=== PATIENT | male | born 1945 | race Caucasian/White ===

== ENCOUNTER 2021-02-22 11:30 | Outpatient (CLI) | payer MEDICARE, SELFPAY | END 2021-02-22 11:31 | disposition home or self-care (01) | LOC: CHSLAB 11:37 | PROVIDERS: PCP Internal Medicine; Visit Provider Specialist | DX: L57.0 Actinic keratosis (principal) | CPT/HCPCS: 88305 ==

== ENCOUNTER 2022-09-12 08:26 | Outpatient (CLI) | payer MEDICARE, SELFPAY | END 2022-09-12 08:27 | disposition home or self-care (01) | LOC: CHSLAB 08:32 | PROVIDERS: PCP Specialist; Visit Provider Specialist | DX: L57.0 Actinic keratosis (principal) | CPT/HCPCS: 88305 ==

== ENCOUNTER 2025-02-05 12:05 | Outpatient (CLI) | payer MEDICARE, SELFPAY ==
--- OUTSIDE RECORDS SUMMARY | 2025-02-05 13:46 | XMS_ITS | Clinical Summary ---
Author Organization [facility] Address [address] [address] Phone Care Team Providers Care Applications Engineer Name Role Phone Miguel Clark MD Primary Care Provider Unavaila ble Allergies No known active allergies Medications clopidogrel (PLAVIX) 75 MG Tablet 8 Active Fenofibrate Micronized 134 MG Capsule TK 1 C PO D 3 8 Active rosuvastatin (CRESTOR) 20 MG Tablet TK 1 T PO ONCE D 1 8 Active valsartan-hydroCH LOROthiazide (DIOVAN-HCT) 320-25 MG Tablet 9 Active timolol (TIMOPTIC) 0.5 % Solution INT 1 GTT IN OU BID 1 8 Active glipiZIDE (GLUCOTROL) 5 MG Tablet Take by mouth. Activ e terazosin (HYTRIN) 10 MG Capsule Take by mouth. Activ e Probiotic Product (PROBIOTIC & ACIDOPHILUS EX ST) CapsuleIndication s:Chronic maxillary sinusitis Take 1 daily by mouth while on antibiotics and for at least 5 days after completing the antibiotic course. 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 Chronic maxillary sinusitis 12/10/2018 PNAR (perennial non-allergic rhinitis) 9 DNS (deviated nasal septum) 12/10/2018 Resolved Problems Problem Noted Date Diagnosed Date Resolved Date Rhinitis medicamentosa 12/10/201801/17 Social History Tobacco Use Types Packs/Day Years Used Date Smoking Tobacco: Never Smokeless Tobacco: Never Alcohol Use Standard Drinks/Week Comments No 0 (1 standard drink = 0.6 oz pur e alcohol) Sex and Gender Information Value Date Recorded Sex Assigned at Not on file Legal Sex Male 7:25 PM CDT Gender Identity Not on file Sexual Orientation Not on file 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 End 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 Not on file Not on susan e Not on file Last Filed Vital Signs Vital Sign Reading Time Taken Comments Blood Pressure 126/88 12/09/2019 8:44 AM [employer]OVE RE[employer]ISH[employer] Pulse 64 12/09/2019 8:44 AM [employer]OVE REFINISHER Temperature 36.9 C (98.4 F) 12/09/2019 8:44 AM STOVE REFINISHER Respiratory Rate 14 12/09/2019 8:44 AM STOVE REFINISHER Oxygen Saturation 98% 12/09/2019 8:44 AM STOVE REFINISHER Inhaled Oxygen Concentration - - Weight 97.5 kg (215 lb) 12/09/2019 8:44 AM STOVE REFINISHER Height 175.3 cm (5' 9 ) 12/09/2019 8:44 AM STOVE REFINISHER Body Mass Index 31.75 12/09/2019 8:44 AM STOVE REFINISHER Plan of Treatment Health Maintenance Due Date Last Done Comments Hepatitis C Virus (HCV) Screening 1945 TdaP Immunization 1945 Pneumococcal Immunization (50+ years) (1 of 1 - PCV) 1994 Zoster Immunization (1 of 2) 1994 Respiratory Syncytial Virus (RSV) Immunization (Adult) (1 - 1-dose 75+ series) 2019 Influenza Immunization (#1) 2024 08/06/2019, 1 01/01/2017 SARS-COV-2 Immunization (2023- season) 2024 09/26/2022, 08/25/2021, 02/04/2021, Additional history exists Hepatitis B Immunization Aged Out No longer eligible based on patient's age to complete this topic Meningococcal Immunization (ACWY) Aged Out No longer eligible based on patient's age to complete this topic Rotavirus Immunization Aged Out No lo nger eligible based on patient's age to complete this topic Care Teams Applications Engineer Relationship Specialty Start Date End Date Miguel Clark MD [address] [address] [place] [address] PCP - General Internal Medicine 12/10/18
--- OUTSIDE RECORDS SUMMARY | 2025-02-05 13:46 | XMS_ITS | Encounter Summary ---
Author Organization [facility] Address [address] [place] [address] Phone Care Team Providers Care Soil Conservation Technician Name Role Phone Miguel Clark MD Primary Care Provi severo Javier Manuel MD Unavailable [phone] [place] Primary Care Provider Irineo Terrazas MD Primary Care Provider [phone] Jeff Candelario DPM Unavailable [phone] Caio Zaragoza MD Unavailable [phone] Cinthia Rocha RN Unavailable [phone] Christina Tubbs CDE Unavailable [phone] Encounter Details Date Type Department Care Team (Late st Contact Info) Description 04/23/2018 Orders Only [facility] ProviderYoli MD [address] [place] [address] Social History Tobacco Use Types Packs/Day Years Used Date Smoking Tobacco: Never Smokeless Tobacco: Never Alcohol Use Standard Drinks/Week Comments No 0 (1 standard drink = 0.6 oz pur e alcohol) Sex and Gender Information Value Date Recorded Sex Assigned at Not on file Legal Sex Male 11:52 PM [employer] Gender Identity Not on file Sexual Orientation Not on file documented as of this encounter Plan of Treatment Not on file documented as of this encounter Procedures Procedure Name Priority Date/Time Associated Diagnosis Comments DISCHARGE LABORATORY CUMULATIVE REPORT 04/23/2018 12:00 AM CDT documented in this encounter Results * DISCHARGE LABORATORY CUMULATIVE REPORT (04/23/2018 12:00 AM CDT) Narrative 04/23/2018 12:00 AM CDT Ordered by an unspecified provider. us Historical Provider LAB BLOOD ORDERABLES Steffany l Result documented in this encounter Visit Diagnoses Not on filedocumented in this encounter Additional Health Concerns Infection Onset Date Last Indicated Resolved Time C. difficile suspected 04/18/2024 04/18/202404/20 1:50 PM CDT documented as of this encounter Care Teams Soil Conservation Technician Relationship Specialty Start Date End Date Miguel Clark MD PCP - General 02/23/17 07/26/22 Chino [place] PA [address] [place] [address] [place] [address] PCP - General Internal Medicine 07/27/22 10/05/22 Irineo Terrazas MD [address] [place] [address] PCP - General Family Medicine 10/06/22 Javier Manuel MD Consulting Physician Cardiovascular Disease 06/25/18 Jeff Candelario, DPM [address] [place] [address] Consulting Physician Orthopedic Surgery 12/22/22 Caio Zaragoza MD [address] [place] [address] [address] [place] [address] Consulting Physician Nephrology 05/13/24 Cinthia Rocha, RN [address] [place] [address] [address] [place] [address] Mason Foreman/Superintendant 05/19/24 Christina Tubbs CDE [address] [facility] [address] [facility] [address] [place] [address] Wedding Photographer 05/19/24 05/25/24 documented as of this encounter
--- OUTSIDE RECORDS SUMMARY | 2025-02-05 13:46 | XMS_ITS | Referral Summary ---
Author Organization [facility] Address [address] [place] [address] Care Team Providers Care Youth Care Professional Name Role Phone Javier Manuel MD Unavailable [phone] Irineo Terrazas MD Primary Care Provider Andrea Candelario DPM Unavailable [phone] Caio Zaragoza MD Unavailable [phone] Cinthia Rocha RN Unavailable [phone] Encounters Date Type Department Care Team Description 01/26/2025 Results Follow-Up [facility] [address] [phone] Irineo Terrazas MD 01/26/2025 Orders Only [facility] [address] [phone] Irineo Terrazas MD 01/26/2025 9:58 AM INDUSTRIAL RELATIONS WORKER - 01/26/2025 11:59 PM INDUSTRIAL RELATIONS WORKER Hospital Encounter [address] [address] Discharge Disposition: Discharge to home or self care 01/26/2025 9:30 AM INDUSTRIAL RELATIONS WORKER Office Visit [facility] [address] [phone] Irineo Terrazas MD Dysuria (Primary Dx); Constipation, unspecified constipation type; BMI 31.0-31.9,adult; Obesity (BMI 30.0-34.9) 01/22/2025 9:00 AM INDUSTRIAL RELATIONS WORKER Lab [facility] [address] [place] [address] 01/20/2025 9:45 AM INDUSTRIAL RELATIONS WORKER Office Visit [facility] at [address] [place] [phone] Javier Manuel MD Bilateral carotid artery stenosis (Primary Dx); Chronic systolic congestive heart failure (HCC); Elevated LDL cholesterol level; 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; Valvular heart disease; Paroxysmal atrial fibrillation (HCC) 01/08/2025 [facility] IP Outreach [facility] [address] [place] [id number] Tania Chun MA 01/07/2025 9:45 AM INDUSTRIAL RELATIONS WORKER Lab [facility] [address] [place] [address] 01/01/2025 Orders Only [facility] [address] [phone] Irineo Terrazas MD 01/01/2025 Telephone [facility] [address] [address] Irineo Terrazas MD Test Results 12/26/2024 4:37 PM INDUSTRIAL RELATIONS WORKER - 12/26/2024 11:59 PM INDUSTRIAL RELATIONS WORKER Hospital Encounter [address] [address] Dysuria Discharge Disposition: Discharge to home or self care 12/26/2024 3:30 PM INDUSTRIAL RELATIONS WORKER Office Visit [facility] [address] [phone] Irineo Terarzas MD Dysuria (Primary Dx); Diabetes mellitus due to underlying condition with stage 3a chronic kidney disease, with long-term current use of insulin (HCC); BPH associated with nocturia; Chronic systolic congestive heart failure (HCC); 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; CKD stage 3a, GFR 45-59 ml/min (HCC); Chronic atrial fibrillation (HCC); BMI 31.0-31.9,adult; Obesity (BMI 30.0-34.9) 12/19/2024 9:40 AM INDUSTRIAL RELATIONS WORKER Lab [facility] [address] [place] [address] Controlled type 2 diabetes mellitus with complication, without long-term current use of insulin (HCC) 12/18/2024 Orders Only [facility] [address] [phone] Irineo Terrazas MD Controlled type 2 diabetes mellitus with complication, without long-term current use of insulin (HCC) (Primary Dx) 12/17/2024 Telephone [facility] [address] [phone] Irineo Terrazas MD Case Management- Primary Care 12/04/2024 Telephone [facility] [address] [address] Irineo Terrazas MD Case Management- Primary Care 11/18/2024 Telephone [facility] Accountable Care Organization [address] [place], [place] [id number] Sofya Ruiz MA Unsuccessful Phone Call 3 (Med adherence) 11/17/2024 Orders Only [facility] [address] [phone] Irineo Terrazas MD 11/14/2024 Telephone [facility] [address] [phone] Irineo Terrazas MD Medical Question/Miscellaneo us from Last 3 Months Allergies No known active allergies Medications lancets misc test twice daily 180 each 3 12/18/19 17 Active timoloL maleate 0.5 % drops, once daily INT 1 GTT IN OU QD 10/19/20 20 Active gabapentin (NEURONTIN) 100 mg capsule TAKE 1 CAPSULE(100 MG) BY MOUTH THREE TIMES DAILY 90 capsule 07/26/20 22 Active amiodarone (PACERONE) 200 mg tablet Take 1 tablet (200 mg total) by mouth daily 90 tablet 3 04/15/20 24 025 Active aspirin 81 mg chewable tablet Take 1 tablet (81 mg total) by mouth daily Active glipiZIDE (GLUCOTROL) 5 mg tabletIndicati ons:type 2 diabetes mellitus Take 1 tablet (5 mg total) by mouth 2 (two) times a day before breakfast and lunch Active isosorbide dinitrate (ISORDIL) 10 mg tablet Take 1 tablet (10 mg total) by mouth 2 (two) times a day 180 tablet 3 05/13/20 24 Active telmisartan-hy drochlorothiaz id (MICARDIS HCT) 80-25 mg per tablet Take 1 tablet by mouth daily 06/06/20 24 Active lansoprazole (PREVACID) 30 mg capsule Take 1 capsule (30 mg total) by mouth daily Active OneTouch Verio test strips strip USE TO TEST TWICE DAILY( MORNING AND NIGHT) DIRECTED 100 strip 06/30/20 24 Active apixaban (Eliquis) 5 mg tablet TAKE 1 TABLET BY MOUTH TWICE DAILY 180 tablet 3 10/06/20 24 Active FeroSuL 325 mg (65 mg iron) tablet TAKE 1 TABLET BY MOUTH EVERY DAY WITH BREAKFAST 90 tablet 1 10/06/20 24 Active rosuvastatin (CRESTOR) 20 mg tablet TAKE 1 TABLET BY MOUTH DAILY 100 tablet 1 10/06/20 24 Active metoprolol XL (TOPROL-XL) 50 mg extended release tablet Take 0.5 tablets (25 mg total) by mouth daily 45 tablet 3 10/06/20 24 Active Myrbetriq 50 mg tablet extended release 24 hr Take 1 tablet (50 mg total) by mouth daily 09/02/20 24 Active albuterol HFA (PROVENTIL HFA,VENTOLIN HFA,PROAIR HFA) 90 mcg/actuation inhaler Inhale 2 puffs every 6 (six) hours as needed for wheezing 3 each 4 10/20/20 24 025 Active blood-glucose sensor device 1 each every 14 (fourteen) days 5 each 1 10/20/20 24 Active flash glucose scanning reader ([employer] [place] [address] [place]) [facility] Use as directed with sensor. Dx: Type 2 Dm with CKD stage 3b 1 each 10/20/20 24 Active Additional Information Patient not taking.Reported on 01/26/2025 terazosin (HYTRIN) 10 mg capsule TAKE 1 CAPSULE(10 MG) BY MOUTH EVERY NIGHT 90 capsule 11/12/20 24 Active fenofibrate micronized (LOFIBRA) 134 mg capsule TAKE 1 CAPSULE(134 MG) BY MOUTH DAILY 100 capsule 1 11/21/20 24 Active furosemide (LASIX) 20 mg tablet TAKE 1 TABLET(20 MG) BY MOUTH DAILY 90 tablet 1 01/05/20 25 Active hydrALAZINE (APRESOLINE) 50 mg tabletIndicati ons:hypertensi on Take 1.5 tablets (75 mg total) by mouth 3 (three) times a day 270 tablet 3 01/20/20 25 026 Active cephalexin (KEFLEX) 500 mg capsule Take 1 capsule (500 mg total) by mouth 2 (two) times a day for 10 days 20 capsule 01/27/20 25 025 Active hydrALAZINE (APRESOLINE) 50 mg tabletIndicati ons:hypertensi on Take 1 tablet (50 mg total) by mouth 3 (three) times a day 270 tablet 3 07/10/20 24 025 Discontinued cephalexin (KEFLEX) 500 mg capsule Take 1 capsule (500 mg total) by mouth 2 (two) times a day for 7 days 14 capsule 01/01/20 25 025 Active Problems Problem Noted Date Diagnosed Date Constipation 01/26/2025 Assessment & Plan (01/26/2025 9:56 AM INDUSTRIAL RELATIONS WORKER): Change in BM and will montior ersponse. Push fluids, update C=-scope and will montior serponse. CKD stage 3a, GFR 45-59 ml/min 01/04/2025 Assessment & Plan (01/04/2025 3:48 PM INDUSTRIAL RELATIONS WORKER): Reviewed hydration and avoidance of nephrotoxic agents. No NSAIDS. Dysuria 01/04/2025 Assessment & Plan (01/26/2025 9:55 AM INDUSTRIAL RELATIONS WORKER): Continue f/u with aggressive hydration and will montior response. Assessment & Plan (01/04/2025 3:48 PM INDUSTRIAL RELATIONS WORKER): Check urinalysis and will follow response. NO gross hematuria. Flu vaccine need 10/20/2024 Assessment & Plan (10/20/2024 10:17 AM INDUSTRIAL RELATIONS WORKER): Updated Controlled type 2 diabetes ximena ruiz with stage 3 chronic kidney disease, with long-term current use of insulin 10/20/2024 Assessment & Plan (10/20/2024 10:17 AM INDUSTRIAL RELATIONS WORKER): Continue aggressive blood pressure and glycemic control. Benign prostatic hyperplasia with urinary freque ncy 10/20/2024 Assessment & Plan (10/20/2024 10:18 AM INDUSTRIAL RELATIONS WORKER): COntinue on terazosin and will follow response. Secondary hyperparathyroidism of renal origin Assessment & Plan (10/20/2024 10:18 AM INDUSTRIAL RELATIONS WORKER): Continue f/u with nephrology. BMI 31.0-31.9,adult 07/25/2024 Assessment & Plan (07/25/2024 9:31 AM CDT): [place] 150min/week aerobic exercise. Obesity (BMI 30.0-34.9) 07/25/2024 Acute conjunctivitis of left eye 07/25/2024 Assessment & Plan (07/25/2024 9:32 AM CDT): Erythemoycin ointmnet. No loss of visual acuity. Sleep disturbance 05/15/2024 Assessment & Plan (05/15/2024 11:26 AM CDT): PSG ordered. Will plan accordingly once results are received. Encounter for Medicare annual wellness exam 04/27 Assessment & Plan (05/15/2024 11:26 AM CDT): Visit preventive in nature. We reviewed medications, chronic conditions, risk factors, lifestyle recommendations. Reviewed immunization recommendations. Follow-up in 2 months for chronic conditions and 1 year for annual wellness. Hyperkalemia 04/18/2024 Hyperkalemia 04/18/2024 REBECCA (acute kidney injury) 04/18/2024 Hyponatremia 04/18/2024 Hypotension 04/18/2024 Coronary artery disease of n ative artery of sitka heart with stable angina pectoris 04/16/2024 Assessment & Plan (10/20/2024 10:16 AM INDUSTRIAL RELATIONS WORKER): Secondary prevention and will montior erpsonse. COntinues on asa and rsouvastatin. No new anginal s/s. Assessment & Plan (07/25/2024 9:30 AM CDT): Secondasry prevneiton. Continues f/u with Cardiology. No active anginal s/s. Montior response. Diabetes mellitus due to und erlying condition with stage 3a chronic kidney disease, with long-term current use of insulin 04/16/2024 Assessment & Plan (01/04/2025 3:46 PM INDUSTRIAL RELATIONS WORKER): Reviewed glycmeic control targets. Reviewed hypoglycemic risks. Reviweed side effects to glp-1 agonsit therapy and mechdanism of action. Chronic systolic congestive heart failure 2022 Overview (01/20/2025): Mild LV systolic dysfunction on echo 23 July 2015. Severe LV systolic dysfunction on echo 18 June 2023. Mild LV systolic dysfunction on echo 29 November 2023. Mild LV systolic dysfunction on echo 07 July 2024. LVEF 45-50%. On Toprol-XL 50 mg daily, hydralazine 50 mg t.i.d., Isordil 10 b.i.d.,telmisartan/hydrochlorothiazide 80/25, Lasix 20 mg daily. No Aldactone because of hyperkalemia and renal insufficiency in the past. Coreg made him sleepy. Assessment & Plan (01/20/2025 10:30 AM INDUSTRIAL RELATIONS WORKER): We discussed echo result from 6 months ago showing mild LV dysfunction. Since his blood pressure is high anyway, I will increase the hydralazine to 75 mg PO TID. Another echocardiogram will be done prior to next office visit. Assessment & Plan (01/04/2025 3:47 PM INDUSTRIAL RELATIONS WORKER): Continues f/u with cardiology and will monitor response. Reivweed no fluid overload. No EPSTEIN, no syncope/near-syncope changes. Assessment & Plan (07/10/2024 3:41 PM CDT): Discussed mild LV dysfunction noted on echo a few days ago. He is not symptomatic walking slowly with a cane. I will however increase the hydralazine to 50 mg p.o. t.i.d. as his blood pressures have been high. He showed me his blood pressure record showing systolic in the 150-160 range pretty much all the time. Assessment & Plan (05/15/2024 11:26 AM CDT): Clinically stable. Start Isordil today. Labs today. Highly encouraged compression stockings. Highly encouraged monitoring sodium intake. Handouts provided. Red flags reviewed. Will monitor response. Assessment & Plan (05/13/2024 9:41 AM CDT): Complaining of sleepiness and he does snore. Thus, I wonder whether he could benefit from a sleep study. I advised him to check with Dr. Terrazas. We discussed that his LV function has actually improved a bit since last year. I will change the Imdur to Isordil 10 mg p.o. b.i.d.. I will increase the hydralazine to 25 mg p.o. t.i.d.. Cannot add ARB or RUEL inhibitor or Entresto or Aldactone because of renal insufficiency and hyperkalemia. Assessment & Plan (11/01/2023 1:01 PM INDUSTRIAL RELATIONS WORKER): We discussed latest echo findings from 5 months ago. He is doing quite well since cardioversion back to sinus rhythm. He is able to walk 3,500 steps a day without chest pain or shortness of breath. We discussed his multiple medications for weak heart. He is willing to try increasing the Toprol-XL to 50 mg per day. He will keep an eye on his pulse rate with his fitness watch and let me know if it is less than 50 beats per minute consistently. He wants to get off his wearable defibrillator, so we should get an echocardiogram now. Assessment & Plan (08/07/2023 9:54 AM CDT): Since he has some troubles with Coreg, I will try Toprol-XL 25 mg p.o. q.d.. I will also start empagliflozin 10 mg p.o. q.d.. We discussed primary prevention with a wearable defibrillator and he is agreeable. He will stay on telmisartan/hydrochlorothiazide and Aldactone. We checked his renal function a month ago and it was back to normal. Serum creatinine was slightly high 4 months ago. Elevated LDL cholesterol level 04/17/2023 Overview (01/20/2025): LDL of 37 mg/dL on 23 August 2020. LDL of 38 mg/dL on 12 January 2021. LDL of 30 mg/dL on 27 Mar 2023. LDL of 42 mg/dL on 17 September 2023. LDL of 44 mg/dL on 10 Apr 2024. LDL of 31 mg/dL on 20 October 2024. LDL of 44 mg/dL on 19 December 2024. On Crestor 20 mg p.o. q.d.. Assessment & Plan (01/20/2025 10:29 AM INDUSTRIAL RELATIONS WORKER): Discussed LDL cholesterol goal less than 70 mg/dL. He has been at goal since 5 years ago. I will not make any changes here. Assessment & Plan (07/10/2024 3:39 PM CDT): We discussed LDL cholesterol goal of less than 70 mg/dL. He has been at goal since at least 2019. No change in low dose Crestor. Assessment & Plan (11/01/2023 1:02 PM INDUSTRIAL RELATIONS WORKER): We discussed LDL cholesterol goal of less than 70 mg/dL. He has been at goal for the past 3 years. No change in Crestor dosing at this time. Brian crowe 12/22/2022 Controlled type 2 diabetes m ellitus with diabetic polyneuropathy, without long-term current use of insulin 03/30/2022 Assessment & Plan (03/30/2022 11:23 AM CDT): Yan helps and Low dose all needs Watch feet for sores Iron deficiency anemia due to chronic blood loss 03/30/2022 Assessment & Plan (03/30/2022 11:26 AM CDT): Mildly low irons and nl feritin trial Single iron a day neg colon last yr Essential hypertension 11/28/2021 Assessment & Plan (11/28/2021 10:41 AM INDUSTRIAL RELATIONS WORKER): htn good and keep meds same Hematoma of left thigh 11/10/2021 Assessment & Plan (11/10/2021 1:35 PM INDUSTRIAL RELATIONS WORKER): possibaly caused sund but aware of yesteeday with knee sore and today sawswelling area if bleeding into superficial tissue and stopped will se it foolw gracity and go down and post as it evolves. No other bleeding would not hlold the sa or eliquis.remain cativyt to helpmobilitze it expect local swelling and discomfort as blood ariadne feel like bruised it, blood cnt yeeterday ws not different from past so not exceessive bleeding Abnormal blood creatinine level 06/09/2021 Assessment & Plan (11/28/2021 10:33 AM INDUSTRIAL RELATIONS WORKER): Cr cl 89 and nl. E gfr 70 and Actually b e t ter and nl Assessment & Plan (06/09/2021 8:41 AM CDT): egfr 61 and passt crcl good but creat up some and recheck Abnormal CT scan, colon 05/16/2021 Overview (05/16/2021): Added automatically from request for surgery [id number] History of colonic polyps 05/16/2021 Overview (05/16/2021): Added automatically from request for surgery [id number] Class 1 obesity with body ma ss index (BMI) of 30.0 to 30.9 in adult 02/03/2021 Assessment & Plan (03/30/2022 11:27 AM CDT): wtch wt Assessment & Plan (03/10/2021 9:55 AM CDT): Work to lisa a few. 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 Assessment & Plan (09/01/2020 9:57 AM CDT): l perirectal 43 cm abscess going down given proximity concern for coming from rectum or not Cont pobiotic and cipro 500 bid for 10 days and ask back in mid next week to look at since ge tting better will no refer but nof nont stay better and or now going away then surg consoult to look at Potential higher levels of zanaflex but only on 2 mg once a day. Will cont with cipro. Discussed Urinary frequency 04/26/2020 Assessment & Plan (04/26/2020 4:09 PM CDT): Urine dip unremarkable detailed above. Prior urine testing evaluated which was negative for any pyuria and clinical exam was benign for prostatitis. Given little to no improvement, progression of sx recommending checking PSA, sending off urinalysis for verification of hematuria clearance, and consultation to urologist. Recommended treatment for suspected overactive bladder in the interim with oxybutynin. S/Es discussed. Further follow-up in 2 weeks if unable to get in with urologist in the interim regarding results of labs. Acute cystitis with hematuria 04/13/2020 Assessment & Plan (03/10/2021 9:52 AM CDT): Yr ago some blood cells and neg culture and then neg No antibiotcs for a yr and Given abn urine and aaucte strt and nitrates feels uti no prior issue to suggest urine retentino or not emptying. But consider bladder scan in furt re visits. Cover with antibioitcs Not had antibiotrcs for a yr. strt macrobid bid and get urine micro and culuture chem screen + for bld and nitrates and ifmicro shows t hen will need repeat to confirm clearance. Stay on probioticxs now. fecheck urine 2 wks to confirm blood gone, stone at lower part of ureter as gets to bldder can cause similar complalnts and maria alejandra for if neg culture Assessment & Plan (04/13/2020 9:16 AM CDT): empicic treatment with macrobid and check urine sscreen + blood and recheck after rx to prove gone Localized edema 04/13/2020 Assessment & Plan (04/13/2020 9:17 AM CDT): Probably from the amlodipine but will check tsh and bnp if not done recently jvd now no pnd or orthopnea but sleeps o pillw for gerd Valvular heart disease 03/29/2020 Overview (01/20/2025): Mild AI on echo 23 July 2015. Normal LVEF of 53%. Mild MR/ TR on echo 18 June 2023. Severe LV dysfunction. No mention of valvular heart disease on echo 29 November 2023. Mild MR/TR/AI on echo 07 July 2024. LVEF of 40-45%. Assessment & Plan (04/17/2023 10:57 AM CDT): Because he is having some shortness of breath with activities, an echocardiogram would be useful. We discussed last findings from 8 years ago showing good LV function. Bilateral carotid artery stenosis 03/29/2020 Assessment & Plan (11/28/2021 10:36 AM INDUSTRIAL RELATIONS WORKER): Last checked in dec last yr and mild. Risk tight and ldl low at 28 so feel risk of progressio nil recheck in a yr Assessment & Plan (03/29/2021 10:27 AM CDT): Patient remains asymptomatic with his known carotid disease. He will continue with aggressive secondary risk factor modification. Recent carotid ultrasound revealed mild bilateral disease. Assessment & Plan (02/03/2021 11:41 AM INDUSTRIAL RELATIONS WORKER): Mild disease on scan this Wk and cont meds to limit risk and recheck 1-12 yrs Assessment & Plan (09/01/2020 10:01 AM CDT): Check every 1-2 yrs Hypercalcemia 12/08/2019 Assessment & Plan (03/30/2022 11:22 AM CDT): calcelmia up more then down andnot on calc. Check pth on return Assessment & Plan (09/01/2020 9:58 AM CDT): trce high at 10.4 and no chaes and check pth I future Assessment & Plan (12/08/2019 8:38 AM INDUSTRIAL RELATIONS WORKER): Calcium up to 10.9 and take calcium intermittently and ask to stop and stay off Pain in left lower leg 12/08/2019 Assessment & Plan (12/08/2019 8:40 AM INDUSTRIAL RELATIONS WORKER): Issue at night and see if niight time extended tylenol 625 and use 2 will help Controlled type 2 diabetes ximena ruiz with diabetic peripheral angiopathy without gangrene, without long-term current use of insulin 03/06/2019 Assessment & Plan (10/20/2024 10:16 AM INDUSTRIAL RELATIONS WORKER): Rviweed gabapentin for neuropathy and montior for secondary prevnetion and will continue to follow response. Assessment & Plan (03/30/2022 11:29 AM CDT): Watch fe et for sores that won't heal Assessment & Plan (02/03/2021 11:46 AM INDUSTRIAL RELATIONS WORKER): No claudicaton and risk with ldl and bp great and sugar as tight aswant At 7.0 watch for issue of tight sugar controll Watch feeet for sores. Assessment & Plan (09/01/2020 10:01 AM CDT): Tight risk contorll and no chags and watch feeet Assessment & Plan (12/08/2019 8:36 AM INDUSTRIAL RELATIONS WORKER): No waling lilmits from Arterial issue an duses suport from past trauma to l leg Assessment & Plan (03/06/2019 9:30 AM CDT): See's md in [facility] and will ask for info when next ween to add to file. Doing well now Thrombocytopenia 03/06/2019 Assessment & Plan (03/30/2022 11:20 AM CDT): Plat stable at 114 and referral if dorps to much less then 100 Assessment & Plan (11/28/2021 10:40 AM INDUSTRIAL RELATIONS WORKER): plt 127 and stable no drift Assessment & Plan (06/09/2021 8:37 AM CDT): Plat stable ovfer time with 3 yrs ago 124 and this time 1217 with mild anemia monitor and recheck iron referal if drops Assessment & Plan (02/03/2021 11:51 AM INDUSTRIAL RELATIONS WORKER): No bruising .bleeding and check cbc on return to [facility] Plat. Assessment & Plan (10/13/2020 11:07 AM INDUSTRIAL RELATIONS WORKER): Cbc on oreturn to [facility] Assessment & Plan (09/01/2020 10:03 AM CDT): Stable and recheck Assessment & Plan (12/08/2019 8:39 AM INDUSTRIAL RELATIONS WORKER): Mildly low and moncitor Assessment & Plan (03/06/2019 9:34 AM CDT): Check cbc on return Paroxysmal atrial fibrillation 12/12/2018 Overview (07/10/2024): On Eliquis 5 mg p.o. b.i.d.. and amiodarone 200 mg daily. Successful cardioversion to sinus rhythm on 19 September 2023 (RL). Assessment & Plan (01/20/2025 10:28 AM INDUSTRIAL RELATIONS WORKER): Patient denies any palpitations, dizziness or syncope. Heart rhythm seems regular on my exam today. He has no significant bleeding issues with Eliquis, so I will not make any changes here. Assessment & Plan (01/04/2025 3:47 PM INDUSTRIAL RELATIONS WORKER): DOAC and rate control. Assessment & Plan (10/20/2024 10:16 AM INDUSTRIAL RELATIONS WORKER): Continues f/u with cardiology. No palpitations Continues on DOAC and metoprolol XL . Assessment & Plan (07/25/2024 9:31 AM CDT): Continue on DOAC and rate control. MOntior response. Assessment & Plan (07/10/2024 3:39 PM CDT): Patient denies any palpitations, dizziness or syncope. Exam in the office today revealed a very irregular rhythm. No significant bleeding issues with Eliquis. He does have a few bruises on both forearms. We should continue on same dose Eliquis. Assessment & Plan (11/01/2023 1:01 PM INDUSTRIAL RELATIONS WORKER): He says he feels much better since atrial fibrillation has been converted back to sinus rhythm in August 2023. Appears to be in sinus rhythm at this time. No change in medical regimen here. No bleeding issues with Eliquis. Assessment & Plan (08/07/2023 9:52 AM CDT): Patient is still in atrial fibrillation on my exam today. We discussed cardioverting to sinus rhythm to help the weak heart. Patient is agreeable. Continue on Eliquis and he has no bleeding issues. Assessment & Plan (04/17/2023 10:56 AM CDT): Seems to be in atrial fibrillation on my exam today. Patient does not feel any palpitations. He has no dizziness or syncope. Just has a few bruises on the upper extremities but no GI bleeding or persistent nosebleeds. Continue same dose of Eliquis. Assessment & Plan (11/28/2021 10:36 AM INDUSTRIAL RELATIONS WORKER): On anticoag Assessment & Plan (03/29/2021 10:27 AM CDT): Patient's AF rates remain adequately controlled. I see no need for alteration to his medical regimen. Assessment & Plan (02/03/2021 11:42 AM INDUSTRIAL RELATIONS WORKER): Rate controlled and anticoag for persistent/perminent a fib Assessment & Plan (09/01/2020 10:01 AM CDT): Ta=rate contorll and on meds Assessment & Plan (03/06/2019 9:29 AM CDT): On anticoag and rate control Assessment & Plan (12/12/2018 9:57 AM INDUSTRIAL RELATIONS WORKER): New onset a fib. No eje fx as of summer with diffuse cad. With cath. Start eliquis 5mg bid. Amiodarone 200 bid. Back in office jonatan week with ekg. Ask card to see before january o.v. Setup. Recurrent sinusitis 10/28/2018 Assessment & Plan (10/28/2018 10:10 AM INDUSTRIAL RELATIONS WORKER): Continue current allergic rhinitis medication as described above, corticosteroid burst to assist with sinus congestion, encourage patient to complete a sinus CT before moving forward with 30 day course of Augmentin. Touch base in office in 2 weeks in the interim regarding CT results Allergic rhinitis 09/04/2018 Assessment & Plan (10/28/2018 10:10 AM INDUSTRIAL RELATIONS WORKER): Continue current antihistamine, flonase, and nasal rinses tolerated. I also encouraged him to use humidifier vaporizer at night as well Assessment & Plan (09/04/2018 8:48 AM CDT): Recommended Flonase nasal spray [id number], antihistamines if there is no improvement is rhinitis symptoms in the next 3-5 days after initiating Flonase management. Close follow-up outpatient with any worsening little improvement symptoms. He was assure that this does not appear to be infection at this time education was provided regarding proper allergy control and home modifications as well Age-related cataract of both eyes 09/04/2018 Assessment & Plan (09/04/2018 8:49 AM CDT): Patient wishes to proceed forward with cataract surgery, her Ophthalmology recommendation, which he is cleared for at this time. Type 2 diabetes mellitus with hyperlipidemia 03/2018 Overview (07/31/2018): On 20 crestor and ldl drooped to 58 and great and stay here Assessment & Plan (10/20/2024 10:17 AM INDUSTRIAL RELATIONS WORKER): COntinues on rosuvastatin 20mg. No new mylagias. Assessment & Plan (07/25/2024 9:31 AM CDT): Contineu on rosuvastatin and will follow response. Assessment & Plan (05/15/2024 11:25 AM CDT): Decrease glipizide to 2.5 mg twice daily and monitor blood glucose at home. Call in 2 weeks with readings. Assessment & Plan (03/30/2022 11:19 AM CDT): ldl 60 great and keep hereYour cholesterol in the form of ldl (bad) cholesterol,hdl(good) cholesterol and triglycerides are monitored. The triglycerides respond to reduction/controll of your simple carbs/sugars In such items as sugared soda/sweet tea along with fruit juices(containing natural sugar) even if no added sugar is added. LDL cholesterol is reduced with reducing daily intake of fats and carmen. saturated fats. The monosaturated fats like olive oil are not harmful except in the calories they contained. Whole milk cheese needs to be remembered along with whole milk products And limited. Assessment & Plan (11/28/2021 10:41 AM INDUSTRIAL RELATIONS WORKER): ldl at 28 and leave here With tight risk contorll No added diet Assessment & Plan (02/03/2021 11:50 AM INDUSTRIAL RELATIONS WORKER): ldl on med tight at 38 would not push any more and mild trig leave alone but diet if ableYour cholesterol in the form of ldl (bad) cholesterol,hdl(good) cholesterol and triglycerides are monitored. The triglycerides respond to reduction/controll of your simple carbs/sugars In such items as sugared soda/sweet tea along with fruit juices(containing natural sugar) even if no added sugar is added. LDL cholesterol is reduced with reducing daily intake of fats and carmen. saturated fats. The monosaturated fats like olive oil are not harmful except in the calories they contained. Whole milk cheese needs to be remembered along with whole milk products And limited. Assessment & Plan (10/13/2020 11:07 AM INDUSTRIAL RELATIONS WORKER): Check and con tmeds and upfull liipids on returnYour cholesterol in the form of ldl (bad) cholesterol,hdl(good) cholesterol and triglycerides are monitored. The triglycerides respond to reduction/controll of your simple carbs/sugars In such items as sugared soda/sweet tea along with fruit juices(containing natural sugar) even if no added sugar is added. LDL cholesterol is reduced with reducing daily intake of fats and carmen. saturated fats. The monosaturated fats like olive oil are not harmful except in the calories they contained. Whole milk cheese needs to be remembered along with whole milk products And limited. Assessment & Plan (09/01/2020 9:58 AM CDT): a1c up to 7.6 and want no higher and tartget touch lower ldl 37 and with high risk leave thereYour cholesterol in the form of ldl (bad) cholesterol,hdl(good) cholesterol and triglycerides are monitored. The triglycerides respond to reduction/controll of your simple carbs/sugars In such items as sugared soda/sweet tea along with fruit juices(containing natural sugar) even if no added sugar is added. LDL cholesterol is reduced with reducing daily intake of fats and carmen. saturated fats. The monosaturated fats like olive oil are not harmful except in the calories they contained. Whole milk cheese needs to be remembered along with whole milk products And limited.Diabetes management or controll revolves around several core concepts : weight controll,controlling the intake of rapidly absorbed sugars(read simple carbs that get rapidly absorbed such as sweetened tea,sugared soda,fruit juices or portions of fruit over 1/2 cup at a time) as well at the need to increase the sugar burned up through an n increase in your baseline activity.Breads,potatotes(white,yellow,sweet are all the same),most cereals and noodles all breakdown to sugar rapidly. This rapid breakdown or absorption challenges the body into handling this surge of sugar. The more these factors are controlled the more the sugar will be controlled. Assessment & Plan (05/24/2020 8:48 AM CDT): Given wt off will stop the fenofibrate and cont the cresot ldl at 40's a1dc down to 6.5 and will cut the glilpizide to 1/2Your cholesterol in the form of ldl (bad) cholesterol,hdl(good) cholesterol and triglycerides are monitored. The triglycerides respond to reduction/controll of your simple carbs/sugars In such items as sugared soda/sweet tea along with fruit juices(containing natural sugar) even if no added sugar is added. LDL cholesterol is reduced with reducing daily intake of fats and carmen. saturated fats. The monosaturated fats like olive oil are not harmful except in the calories they contained. Whole milk cheese needs to be remembered along with whole milk products And limited.Diabetes management or controll revolves around several core concepts : weight controll,controlling the intake of rapidly absorbed sugars(read simple carbs that get rapidly absorbed such as sweetened tea,sugared soda,fruit juices or portions of fruit over 1/2 cup at a time) as well at the need to increase the sugar burned up through an n increase in your baseline activity.Breads,potatotes(white,yellow,sweet are all the same),most cereals and noodles all breakdown to sugar rapidly. This rapid breakdown or absorption challenges the body into handling this surge of sugar. The more these factors are controlled the more the sugar will be controlled. Assessment & Plan (12/08/2019 8:37 AM INDUSTRIAL RELATIONS WORKER): ldl tight and at 38 and given risk wilol leave alone Assessment & Plan (03/06/2019 9:27 AM CDT): a1c at 6.8 and droopped nicely and w=feels better. ldl at 47 and tight and at level to reverse arterial diseaseYour cholesterol in the form of ldl (bad) cholesterol,hdl(good) cholesterol and triglycerides are monitored. The triglycerides respond to reduction/controll of your simple carbs/sugars In such items as sugared soda/sweet tea along with fruit juices(containing natural sugar) even if no added sugar is added. LDL cholesterol is reduced with reducing daily intake of fats and carmen. saturated fats. The monosaturated fats like olive oil are not harmful except in the calories they contained. Whole milk cheese needs to be remembered along with whole milk products And limited.Diabetes management or controll revolves around several core concepts : weight controll,controlling the intake of rapidly absorbed sugars(read simple carbs that get rapidly absorbed such as sweetened tea,sugared soda,fruit juices or portions of fruit over 1/2 cup at a time) as well at the need to increase the sugar burned up through an n increase in your baseline activity.Breads,potatotes(white,yellow,sweet are all the same),most cereals and noodles all breakdown to sugar rapidly. This rapid breakdown or absorption challenges the body into handling this surge of sugar. The more these factors are controlled the more the sugar will be controlled. Assessment & Plan (12/12/2018 9:41 AM INDUSTRIAL RELATIONS WORKER): a1c at 8.1 and will go to 3 a day kumar metromin and see if can't get a little lower. . ldl at 54 great and no chagesYour cholesterol in the form of ldl (bad) cholesterol,hdl(good) cholesterol and triglycerides are monitored. The triglycerides respond to reduction/controll of your simple carbs/sugars In such items as sugared soda/sweet tea along with fruit juices(containing natural sugar) even if no added sugar is added. LDL cholesterol is reduced with reducing daily intake of fats and carmen. saturated fats. The monosaturated fats like olive oil are not harmful except in the calories they contained. Whole milk cheese needs to be remembered along with whole milk products And limited.Diabetes management or controll revolves around several core concepts : weight controll,controlling the intake of rapidly absorbed sugars(read simple carbs that get rapidly absorbed such as sweetened tea,sugared soda,fruit juices or portions of fruit over 1/2 cup at a time) as well at the need to increase the sugar burned up through an n increase in your baseline activity.Breads,potatotes(white,yellow,sweet are all the same),most cereals and noodles all breakdown to sugar rapidly. This rapid breakdown or absorption challenges the body into handling this surge of sugar. The more these factors are controlled the more the sugar will be controlled. Assessment & Plan (07/31/2018 11:20 AM CDT): uppedht e dose and on 20 crestor and ldl at 58 and gereat. No changesYour cholesterol in the form of ldl (bad) cholesterol,hdl(good) cholesterol and triglycerides are monitored. The triglycerides respond to reduction/controll of your simple carbs/sugars In such items as sugared soda/sweet tea along with fruit juices(containing natural sugar) even if no added sugar is added. LDL cholesterol is reduced with reducing daily intake of fats and carmen. saturated fats. The monosaturated fats like olive oil are not harmful except in the calories they contained. Whole milk cheese needs to be remembered along with whole milk products And limited. Abnormal serum creatinine level 07/31/2018 Assessment & Plan (11/10/2021 1:39 PM INDUSTRIAL RELATIONS WORKER): Lab ulnchanged and can Cause acrf but not now fluid and flush kidneys and see nexxt week Assessment & Plan (07/31/2018 11:22 AM CDT): checxk 24 hr urine in future to confirm if issue. At moderate risk for fall 07/31/2018 Assessment & Plan (11/28/2021 10:34 AM INDUSTRIAL RELATIONS WORKER): Mod risk continues. Assessment & Plan (09/01/2020 10:06 AM CDT): Using high one arm crutch to help and work with balance Assessment & Plan (07/31/2018 11:26 AM CDT): Work on balance to prevent falls. Gastroesophageal reflux disease 04/23/2018 Assessment & Plan (10/20/2024 10:17 AM INDUSTRIAL RELATIONS WORKER): Stable on prevacid. No dyspahgai. Assessment & Plan (11/11/2018 9:42 AM INDUSTRIAL RELATIONS WORKER): Nasal congestion. Filling up laste in day. No gerd c.o. Sinus scans negs. The antibiotics and s teroids not helping. This would fit that gerd is coming up and irritatinghtte ssinuses. Ct neg for infection. Trial reastart the prevacid bid. Diet and life style changes as importatn and stopthte antibiotifs for now. 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 Continue use of walker as needed. Follow-up regarding condition p.r.n. Medicare annual wellness visit, subsequent 02/25 Assessment & Plan (11/28/2021 10:44 AM INDUSTRIAL RELATIONS WORKER): Mod yrn risk depression screen neg and scores 0. Cognitive screen nl See's dr qiana lewis earlier and ariadne not see again for oclon for [address] bill last yr andot espceted to see again/. Up to date on Colon. psa flu and covid shots. p shots Assessment & Plan (07/31/2018 11:30 AM CDT): Colon last yr and none for 4 more yr. Had eye and need to send for it. Suggest update on p23 as 7 yrs old . Fall flu shots. Consider a shingles shot series. Depression risk reviewed. Suggest advanced directive at least discuss with . jono 8 yrs ago. Assessment & Plan (02/25/2018 2:38 PM CDT): Forms filled out in accordance to disability indicating need for handicap licensure Anemia, chronic disease 11/29/2017 Assessment & Plan (11/28/2021 10:35 AM INDUSTRIAL RELATIONS WORKER): Iron now droopped but hgb stable check stoool for blood. Cr renal fainlure ruleout Assessment & Plan (11/10/2021 1:38 PM INDUSTRIAL RELATIONS WORKER): Anemia unchange with bleeding Assessment & Plan (07/31/2018 11:22 AM CDT): Nl kunal and b12 and gfr extamate 67 is probalbly better but propose to check 243 hr urine on reg o.v. return Assessment & Plan (03/26/2018 8:49 AM CDT): Nl b12 and check on iron on return Assessment & Plan (11/29/2017 3:38 PM INDUSTRIAL RELATIONS WORKER): Hand h 12.4 and 34.6 and recheck along withiron Type 2 diabetes mellitus wit h microalbuminuria, without long-term current use of insulin 06/19/2017 Assessment & Plan (07/25/2024 9:30 AM CDT): Reviewed import of glycemic control and will follow response. Margaritoior for hypoglycmeia. Assessment & Plan (03/30/2022 11:18 AM CDT): Urine protein beteter to 60 and on meds to help and keep stable check lyr'ly Assessment & Plan (11/28/2021 10:41 AM INDUSTRIAL RELATIONS WORKER): Urine protein Due on return Assessment & Plan (06/09/2021 8:36 AM CDT): Rep[eat first of yr and good lst check Assessment & Plan (02/03/2021 11:49 AM INDUSTRIAL RELATIONS WORKER): Urine protein stable on arb and aldactone with nl k runining at 90 and less then30 nl given risk of climbing k and renal deterioratio as add more. Rising k with more aldactone ariadne not change meds Assessment & Plan (10/13/2020 11:06 AM INDUSTRIAL RELATIONS WORKER): Fasting a touch beter but target microalblulmen dropped to 90 from 119 and on 25 aldactone and will go to 50 And see ifi dorps more k at 3.8 shouldnot be isue when incrsed chec a1c on rfeutnrDiabetes management or controll revolves around several core concepts : weight controll,controlling the intake of rapidly absorbed sugars(read simple carbs that get rapidly absorbed such as sweetened tea,sugared soda,fruit juices or portions of fruit over 1/2 cup at a time) as well at the need to increase the sugar burned up through an n increase in your baseline activity.Breads,potatotes(white,yellow,sweet are all the same),most cereals and noodles all breakdown to sugar rapidly. This rapid breakdown or absorption challenges the body into handling this surge of sugar. The more these factors are controlled the more the sugar will be controlled. Assessment & Plan (09/01/2020 10:06 AM CDT): staop k and quinapril and start aldactone 25 for the protein and recheck and k till of the cipro will not start the aldactgone or stop the quinapril and k tab check urine and bmp in 4-6 wks Assessment & Plan (12/08/2019 8:37 AM INDUSTRIAL RELATIONS WORKER): Check on return Assessment & Plan (08/05/2019 7:53 PM CDT): The patient was counseled on a heart-healthy, diabetic-friendly diet, as well as life-style modification. Education provided on the diagnosis and risks of the disease. We will continue to monitor routine labs. Additionally, He was counseled on routine diabetic eye exams, foot exams, and other preventive care. Assessment & Plan (03/06/2019 9:27 AM CDT): Check uarine on return and cont meds to limit. Assessment & Plan (12/12/2018 9:40 AM INDUSTRIAL RELATIONS WORKER): Urine proteint 69 and about same on meds. Assessment & Plan (07/31/2018 11:18 AM CDT): Has seen fasting go up but recently back down the a1c I 8's and [id number] for the yr. ariadne hold on sugar and recheck a1c and if not dowwn then needs meds changes. Urine Protein at 80 and will add aldactone as on arb and ruel already and recheck potassium in 4-6 wks Diabetes management or controll revolves around several core concepts : weight controll,controlling the intake of rapidly absorbed sugars(read simple carbs that get rapidly absorbed such as sweetened tea,sugared soda,fruit juices or portions of fruit over 1/2 cup at a time) as well at the need to increase the sugar burned up through an n increase in your baseline activity.Breads,potatotes(white,yellow,sweet are all the same),most cereals and noodles all breakdown to sugar rapidly. This rapid breakdown or absorption challenges the body into handling this surge of sugar. The more these factors are controlled the more the sugar will be controlled. Assessment & Plan (05/10/2018 12:16 PM CDT): The patient was counseled on a heart-healthy, diabetic-friendly diet, as well as life-style modification. Education provided on the diagnosis and risks of the disease. We will continue to monitor routine labs. Additionally, He was counseled on routine diabetic eye exams, foot exams, and other preventive care. Assessment & Plan (03/26/2018 8:46 AM CDT): Trial going up to 2 a day ocf rhe metformin from 1. If see;s low sugar then cut the gllucotrol in 1/2 and see if takes Care of. uarine priotein back up and appears off aldactone. Will restart at 25 mg and check k in about month along with bp and see if issue with susgarDiabetes management or controll revolves around several core concepts : weight controll,controlling the intake of rapidly absorbed sugars(read simple carbs that get rapidly absorbed such as sweetened tea,sugared soda,fruit juices or portions of fruit over 1/2 cup at a time) as well at the need to increase the sugar burned up through an n increase in your baseline activity.Breads,potatotes(white,yellow,sweet are all the same),most cereals and noodles all breakdown to sugar rapidly. This rapid breakdown or absorption challenges the body into handling this surge of sugar. The more these factors are controlled the more the sugar will be controlled. Assessment & Plan (11/29/2017 3:29 PM INDUSTRIAL RELATIONS WORKER): a1c at 7.8 and with steroid sh ot porsche have some impact. Would assume stilla tllittle to high and needs to work on. withadded meds in future if stays up. Diabetes management or controll revolves around several core concepts : weight controll,controlling the intake of rapidly absorbed sugars(read simple carbs that get rapidly absorbed such as sweetened tea,sugared soda,fruit juices or portions of fruit over 1/2 cup at a time) as well at the need to increase the sugar burned up through an n increase in your baseline activity.Breads,potatotes(white,yellow,sweet are all the same),most cereals and noodles all breakdown to sugar rapidly. This rapid breakdown or absorption challenges the body into handling this surge of sugar. The more these factors are controlled the more the sugar will be controlled. Assessment & Plan (06/19/2017 9:35 AM CDT): a1c at 7.2 and g4raet. The urine p rotein droped to 37 and 30 and less nl. No changes and wilol monitorDiabetes management or controll revolves around several core concepts : weight controll,controlling the intake of rapidly absorbed sugars(read simple carbs that get rapidly absorbed such as sweetened tea,sugared soda,fruit juices or portions of fruit over 1/2 cup at a time) as well at the need to increase the sugar burned up through an n increase in your baseline activity.Breads,potatotes(white,yellow,sweet are all the same),most cereals and noodles all breakdown to sugar rapidly. This rapid breakdown or absorption challenges the body into handling this surge of sugar. The more these factors are controlled the more the sugar will be controlled.meds are not leadingoto ptassium issue and will not change B12 deficiency 06/19/2017 Assessment & Plan (03/30/2022 11:18 AM CDT): b12 412 ok and slow drift . likkely check ylrly Assessment & Plan (11/28/2021 10:34 AM INDUSTRIAL RELATIONS WORKER): sgay on b12 and c hecxk Assessment & Plan (06/09/2021 8:36 AM CDT): b12 656 and No changes as perfect Assessment & Plan (02/03/2021 11:48 AM INDUSTRIAL RELATIONS WORKER): Stay on b12 znd heck on levels on return Assessment & Plan (10/13/2020 11:09 AM INDUSTRIAL RELATIONS WORKER): contg on and check on return Assessment & Plan (07/31/2018 11:26 AM CDT): Check to [id number] staying up. Assessment & Plan (03/26/2018 8:49 AM CDT): b12 dropped into nl range and stay on. Assessment & Plan (11/29/2017 3:30 PM INDUSTRIAL RELATIONS WORKER): b12 level dropped to 1200 and near nl enough to keep As at present and recheck and see if drifts downmore Assessment & Plan (06/19/2017 9:37 AM CDT): b12 at 1800 and will recheck. Skip until sept and thpen restart at mond thru frid and skip sat and sund History of bilateral knee replacement 06/19/2017 Assessment & Plan (02/25/2018 2:40 PM CDT): Diagnosis was considered today and treatment plan. 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 Follow-up as needed regarding condition Assessment & Plan (06/19/2017 9:40 AM CDT): referral BPH associated with nocturia 06/09/2014 Overview (03/02/2017): BPH W URINARY OBSTRUCTN Assessment & Plan (01/04/2025 3:47 PM INDUSTRIAL RELATIONS WORKER): Continues on terazosin and will follow response. Assessment & Plan (04/26/2020 4:09 PM CDT): PSA testing decreased as of last check in June 27 0.2, given ongoing sx recommending repeat PSA testing prior to consultation to urologist. Cnt. Terazosin for nocturia in the interim. Assessment & Plan (07/31/2018 11:25 AM CDT): Check psa at first of uyr Assessment & Plan (11/29/2017 3:30 PM INDUSTRIAL RELATIONS WORKER): Check psa on return Assessment & Plan (08/06/2017 11:06 AM CDT): The sense of not emptying came on pretty abrutly and gone after rx for a uti. asd men get issue with from not emptying totally . The sense of trtatining urine is at this time from an infectnio. Will not scan fthe bladder but if uti again then scan or if feels issue then check on. Assessment & Plan (07/09/2017 12:08 PM CDT): meds for the Irritation For 3 days and 10 days of antibiotics for the infection Gout 04/11/2014 Overview (03/01/2017): Gout Hypertension associated with diabetes 04/11/2014 Overview (03/02/2017): BENIGN HYPERTENSION Assessment & Plan (10/20/2024 10:17 AM INDUSTRIAL RELATIONS WORKER): Contiues on hydrsalazinie and metoprolol XL. Assessment & Plan (07/25/2024 9:30 AM CDT): Reviewed target. Continues on arb. WIll montior home levels. Assessment & Plan (05/15/2024 11:24 AM CDT): Normotensive. Continue hydralazine, metoprolol. Pick Isordil today. Assessment & Plan (03/30/2022 11:17 AM CDT): The bp good and a1c stable at 6.9 no changes Hypertension, Medical treament revolves around weight control, salt management, and meds when necessary. long as weight loss is necessary and you are able to drop weight we can cont to monitor the blood pressure and not add meds. Once the weight is not changing then it becomes nesessary to add meds to be able to reach the goal bp.Diabetes management or controll revolves around several core concepts : weight controll,controlling the intake of rapidly absorbed sugars(read simple carbs that get rapidly absorbed such as sweetened tea,sugared soda,fruit juices or portions of fruit over 1/2 cup at a time) as well at the need to increase the sugar burned up through an n increase in your baseline activity.Breads,potatotes(white,yellow,sweet are all the same),most cereals and noodles all breakdown to sugar rapidly. This rapid breakdown or absorption challenges the body into handling this surge of sugar. The more these factors are controlled the more the sugar will be controlled. Assessment & Plan (11/28/2021 10:39 AM INDUSTRIAL RELATIONS WORKER): bp good and no ochages and a1cs at 6.7 and Good compared to last yr On glipizide and at risk for low's would suggest cuting in 1/2 gllllipizide and Expect a1c to come up and that is expected and discussedHypertension, Medical treament revolves around weight control, salt management, and meds when necessary. long as weight loss is necessary and you are able to drop weight we can cont to monitor the blood pressure and not add meds. Once the weight is not changing then it becomes nesessary to add meds to be able to reach the goal bp.Diabetes management or controll revolves around several core concepts : weight controll,controlling the intake of rapidly absorbed sugars(read simple carbs that get rapidly absorbed such as sweetened tea,sugared soda,fruit juices or portions of fruit over 1/2 cup at a time) as well at the need to increase the sugar burned up through an n increase in your baseline activity.Breads,potatotes(white,yellow,sweet are all the same),most cereals and noodles all breakdown to sugar rapidly. This rapid breakdown or absorption challenges the body into handling this surge of sugar. The more these factors are controlled the more the sugar will be controlled. Assessment & Plan (06/09/2021 8:36 AM CDT): The bp good and a1c 6.90 and was 7.6 last fall so imporoved and god now no changes in sugar or bp meds Hypertension, Medical treament revolves around weight control, salt management, and meds when necessary. long as weight loss is necessary and you are able to drop weight we can cont to monitor the blood pressure and not add meds. Once the weight is not changing then it becomes nesessary to add meds to be able to reach the goal bp.Diabetes management or controll revolves around several core concepts : weight controll,controlling the intake of rapidly absorbed sugars(read simple carbs that get rapidly absorbed such as sweetened tea,sugared soda,fruit juices or portions of fruit over 1/2 cup at a time) as well at the need to increase the sugar burned up through an n increase in your baseline activity.Breads,potatotes(white,yellow,sweet are all the same),most cereals and noodles all breakdown to sugar rapidly. This rapid breakdown or absorption challenges the body into handling this surge of sugar. The more these factors are controlled the more the sugar will be controlled. Assessment & Plan (03/29/2021 10:27 AM CDT): Patient's blood pressure remains under excellent control. Assessment & Plan (02/03/2021 11:39 AM INDUSTRIAL RELATIONS WORKER): bp controlled and good on meds the a1c tight at 7.0 and post op recovery shouldnot be hindered . Cont meds for sugar for now and the bp good and no chags Hypertension, Medical treament revolves around weight control, salt management, and meds when necessary. long as weight loss is necessary and you are able to drop weight we can cont to monitor the blood pressure and not add meds. Once the weight is not changing then it becomes nesessary to add meds to be able to reach the goal bp.Diabetes management or controll revolves around several core concepts : weight controll,controlling the intake of rapidly absorbed sugars(read simple carbs that get rapidly absorbed such as sweetened tea,sugared soda,fruit juices or portions of fruit over 1/2 cup at a time) as well at the need to increase the sugar burned up through an n increase in your baseline activity.Breads,potatotes(white,yellow,sweet are all the same),most cereals and noodles all breakdown to sugar rapidly. This rapid breakdown or absorption challenges the body into handling this surge of sugar. The more these factors are controlled the more the sugar will be controlled. Assessment & Plan (10/13/2020 11:08 AM INDUSTRIAL RELATIONS WORKER): bp with med chagns ok and will Monitor as going to go to 50 on aldactone No salt sub With k I it Assessment & Plan (09/01/2020 10:02 AM CDT): bp good but stop the k tab and Quinapril and start aldactone 25.Hypertension, Medical treament revolves around weight control, salt management, and meds when necessary. long as weight loss is necessary and you are able to drop weight we can cont to monitor the blood pressure and not add meds. Once the weight is not changing then it becomes nesessary to add meds to be able to reach the goal bp. Assessment & Plan (05/24/2020 8:47 AM CDT): bp drop and orthostatic will stop the amlodipine and any added wt off will help further drop if gains will likelyneed againHypertension, Medical treament revolves around weight control, salt management, and meds when necessary. long as weight loss is necessary and you are able to drop weight we can cont to monitor the blood pressure and not add meds. Once the weight is not changing then it becomes nesessary to add meds to be able to reach the goal bp. Assessment & Plan (01/21/2020 4:09 PM INDUSTRIAL RELATIONS WORKER): Recommend DASH diet, heart-healthy lifestyle, exercise. Discussed the risks of hypertension. Assessment & Plan (12/08/2019 8:36 AM INDUSTRIAL RELATIONS WORKER): Change valsartan to micardis hctz and see if bp dropes into mid to lower 70's o botom check in 4-6 wks and bmp s well. a1c back up but not as much as last piper no changds and work diet a1c at 7.5 but 8.12 a yr agoHypertension, Medical treament revolves around weight control, salt management, and meds when necessary. long as weight loss is necessary and you are able to drop weight we can cont to monitor the blood pressure and not add meds. Once the weight is not changing then it becomes nesessary to add meds to be able to reach the goal bp.Diabetes management or controll revolves around several core concepts : weight controll,controlling the intake of rapidly absorbed sugars(read simple carbs that get rapidly absorbed such as sweetened tea,sugared soda,fruit juices or portions of fruit over 1/2 cup at a time) as well at the need to increase the sugar burned up through an n increase in your baseline activity.Breads,potatotes(white,yellow,sweet are all the same),most cereals and noodles all breakdown to sugar rapidly. This rapid breakdown or absorption challenges the body into handling this surge of sugar. The more these factors are controlled the more the sugar will be controlled. Assessment & Plan (08/05/2019 7:53 PM CDT): Recommend DASH diet, heart-healthy lifestyle, exercise. Discussed the risks of hypertension. Assessment & Plan (03/06/2019 9:28 AM CDT): The bp good anc no chavnsHypertension, Medical treament revolves around weight control, salt management, and meds when necessary. long as weight loss is necessary and you are able to drop weight we can cont to monitor the blood pressure and not add meds. Once the weight is not changing then it becomes nesessary to add meds to be able to reach the goal bp. Assessment & Plan (12/12/2018 9:41 AM INDUSTRIAL RELATIONS WORKER): bpgood and no changeswHypertension, Medical treament revolves around weight control, salt management, and meds when necessary. long as weight loss is necessary and you are able to drop weight we can cont to monitor the blood pressure and not add meds. Once the weight is not changing then it becomes nesessary to add meds to be able to reach the goal bp. Assessment & Plan (10/28/2018 10:09 AM INDUSTRIAL RELATIONS WORKER): Blood pressure stable in office today. Continue current antihypertensives and monitoring of both glucose levels as well as blood pressure with any acute concerns while on corticosteroid therapy. Side effects medication were discussed and touching base in office there is any notation of hyperglycemia. Last A1c was stable at 8.4% and fasting sugars have been the 140s Assessment & Plan (09/10/2018 9:09 PM CDT): Recommend DASH diet, heart-healthy lifestyle, exercise. Discussed the risks of hypertension. Assessment & Plan (09/04/2018 8:47 AM CDT): Blood pressure stable in office today considering his intolerance to clonidine stable blood pressure readings at home as well as in office I did advise the go ahead stop his clonidine. Will continue certainly with the other antihypertensives including Diovan HCT and quinapril Certainly dash diet, consistent carb diet was strongly encouraged in office today for both heart health as well as diabetes control. Increasing exercise considering limitations was also advised. Last A1c was 8.6 which while he is clear for surgery due to limited complications, I did encourage him to continue current diabetes management and dietary modifications to improve his A1c Assessment & Plan (07/31/2018 11:19 AM CDT): bp consistently up. Starting aldactone will have some impact and see what bp does. In several week if not less then 130 all time then start catapres one pill at night and review bp with optoin to go to 1 ttwice or 2 at night. Relate what doing on return and recheck in 5-6 wks and bmp lab priorHypertension, Medical treament revolves around weight control, salt management, and meds when necessary. long as weight loss is necessary and you are able to drop weight we can cont to monitor the blood pressure and not add meds. Once the weight is not changing then it becomes nesessary to add meds to be able to reach the goal bp.. Assessment & Plan (05/10/2018 12:15 PM CDT): Recommend DASH diet, heart-healthy lifestyle, exercise. Discussed the risks of hypertension. Assessment & Plan (03/26/2018 8:46 AM CDT): bp controll and nonchagesHypertension, Medical treament revolves around weight control, salt management, and meds when necessary. long as weight loss is necessary and you are able to drop weight we can cont to monitor the blood pressure and not add meds. Once the weight is not changing then it becomes nesessary to add meds to be able to reach the goal bp. Assessment & Plan (02/25/2018 2:31 PM CDT): Blood pressure stable. Pt was advised of continuing heart healthy DASH diet, increase exercise as tolerated, and continuing to monitor for any lower leg edema, headaches, changes in vision, or facial flushing. Continue ASA and anti-hypertensives as prescribed. Assessment & Plan (11/29/2017 3:27 PM INDUSTRIAL RELATIONS WORKER): bp high nl and see if added coreebg helps with lowerig some. Suggest checking away f rom here and review onreturnHypertension, Medical treament revolves around weight control, salt management, and meds when necessary. long as weight loss is necessary and you are able to drop weight we can cont to monitor the blood pressure and not add meds. Once the weight is not changing then it becomes nesessary to add meds to be able to reach the goal bp.. Assessment & Plan (06/19/2017 9:34 AM CDT): bp good and no changesHypertension, Medical treament revolves around weight control, salt management, and meds when necessary. long as weight loss is necessary and you are able to drop weight we can cont to monitor the blood pressure and not add meds. Once the weight is not changing then it becomes nesessary to add meds to be able to reach the goal bp. Coronary artery disease invo lving [place] coronary artery of [place] heart 05/26/2000 Overview (07/10/2024): Status post BMS to LAD in 1999 ([facility]). Patent stent by catheterization in 2006 at [facility] ([facility]). Mild CAD by catheterization 25 June 2018 ([facility]). Assessment & Plan (01/20/2025 10:29 AM INDUSTRIAL RELATIONS WORKER): Discussed cardiac intervention from 20/5 years ago. Fortunately, he is not having any chest pain or shortness of breath. He does not think he needs another stress test. We can wait on this for now. Assessment & Plan (01/04/2025 3:47 PM INDUSTRIAL RELATIONS WORKER): Continues on secondary prevnetion. WIll follow response. Continues on antipalatelet and statin therapy. Assessment & Plan (07/10/2024 3:40 PM CDT): We discussed intervention from 24 years ago. He does not need another heart catheterization or stress test because he has no chest pain or shortness of breath walking slowly with a cane. Assessment & Plan (11/01/2023 1:02 PM INDUSTRIAL RELATIONS WORKER): No chest pain or shortness of breath with exertion. No change in medical regimen here. Assessment & Plan (08/07/2023 9:53 AM CDT): Patient denies any chest pain or shortness of breath walking slowly with a cane. He can only walk slowly because of pain in the right hip. Assessment & Plan (04/17/2023 10:58 AM CDT): We discussed previous cardiac catheterization result. He is able to walk very slowly because of right hip pain. Typically, he does not get any chest pain walking room to room. Has some shortness of breath at times. Resolved Problems Problem Noted Date Diagnosed Date Resolved Date Stage 3b chronic kidney disease 05/15/2024 01/04/2025 Assessment & Plan (10/20/2024 10:16 AM INDUSTRIAL RELATIONS WORKER): Continue f/u with Dr. Zaragoza and will montior response. Assessment & Plan (07/25/2024 9:31 AM CDT): STable and reviewed glycemic and kidney controll. Assessment & Plan (05/15/2024 11:28 AM CDT): Discussed CKD with management of heart failure and and diabetes. Important to establish care with hand trimmer. Mr. Aldana will call hand trimmer office today to schedule and let us know if he has any issues. Referral was placed by lung puller on the . Will continue to monitor. BMI 29.0-29.9,adult 05/24/2020 10/13/20 20 Assessment & Plan (09/01/2020 10:08 AM CDT): Stable wt please Assessment & Plan (05/24/2020 8:51 AM CDT): Work to drop more Acute bronchitis due to othe r specified organisms 10/08/2019 12/08/2019 Assessment & Plan (10/08/2019 11:49 AM INDUSTRIAL RELATIONS WORKER): First time tattlining no ohx of in past. Productive cough and Abn Breath sounods will propose cxr as not Happened in past and tyler ct neg on chest. Cover with antibiotics and no pror hx of drug allergy. zithro 500 a day and recheck in a week Consider inihaler if not progressing as not good candidate for orsall steroid that woulcx nl'ly used with underlying d.m. Physical exam 03/06/2019 10/13/2020 Assessment & Plan (09/01/2020 10:07 AM CDT): Mod fall risk deprieson screen nl cog screen nl colon up to date as is psa. Flu shot got eye need check p shots up to date. Assessment & Plan (03/06/2019 9:31 AM CDT): Check psa on return Acute non-recurrent pansinusitis 09/30/2018 10/28/2018 Preoperative clearance 09/04/201809/04 Assessment & Plan (09/04/2018 8:49 AM CDT): Pt was advised to continue current therapy and medications for chronic conditions as previously as advised. Continue with healthy dietary management as well. Pt offered no additional complaints today in office. Preoperative medical clearance: Pt is medically stable and aware there are risk associated with surgery and anesthesia. He states the surgeon has reviewed these risk in detail with patient, and wishes to proceed with surgery. They are medically cleared for surgery at this time. Pt was instructed to contact the office with absolutely any changes prior to and post surgery. We will see them back here as scheduled, or certainly sooner as needed. BMI 30.0-30.9,adult 07/31/2018 02/04/20 21 Assessment & Plan (10/13/2020 11:08 AM INDUSTRIAL RELATIONS WORKER): Watch to keep from growing Assessment & Plan (12/12/2018 10:02 AM INDUSTRIAL RELATIONS WORKER): Being over weight is dealt with by restriction of you daily calories and increasing your calorie needs with increases in your work load/exercises or just increases in daily activity. There are different programs for weight loss and they all are felt to be relatively equally effective and you can make a choice as to what works for you. Assessment & Plan (09/04/2018 8:48 AM CDT): Continue with heart healthy diet as previously implemented along with consistent carb diet weight loss was encouraged in office today Assessment & Plan (07/31/2018 11:27 AM CDT): Being over weight is dealt with by restriction of you daily calories and increasing your calorie needs with increases in your work load/exercises or just increases in daily activity. There are different programs for weight loss and they all are felt to be relatively equally effective and you can make a choice as to what works for you. Acute serous otitis media of left ear 02/25/2018 03/26/2018 Assessment & Plan (02/25/2018 2:41 PM CDT): Ceftin twice daily for 10 day course along with probiotics [id number], Flonase nasal spray recommended that were going to follow up here in 2 weeks to reassess condition and determine any need for further referral however this time it appears that the left tonsillar and cervical lymphadenopathy or secondary to left otitis media. Follow-up in 2 weeks or sooner as needed Acute pain of right shoulder 08/06/2017 07/31/2018 Assessment & Plan (08/06/2017 11:07 AM CDT): Fell a month ago and since the shoulder has been painful. Not able to sleep on.limits on lat raising of the arms. Post fall and prior operation 15 yrs ago. Acute cystitis without hematuria 07/09/2017 11/29/2017 Assessment & Plan (08/06/2017 11:04 AM CDT): C/o cleared and over the abrupt urintino issue. As long as not repeated in near gfuture then will watch for now Assessment & Plan (07/09/2017 12:07 PM CDT): With screening urine and c.o this is a uti. Will start meds for infection. And await the culture of the urine. Suture check 06/19/2017 08/06/2017 Assessment & Plan (06/19/2017 9:32 AM CDT): Suture maria alejandra good as a week ariadne take out per Derm who put in Immunizations Immunization Administration Dates Next Due Influenza, Quadrivalent, Hig h Dose, Preservative Free, Intrr 10/16/2023,08/25/2021 Influenza, Split 09/09/2012,09/11/2011, 0 Influenza, Trivalent, Adjuva nted, Intramuscular 08/27/2020 Influenza, Trivalent, High D ose, Split, Preservative Free, Intramuscular 10/20/2024,08/06/2019,09/11/2018,11/01,10/12/2016,09/28/2015 Influenza, Trivalent, IM (MDV) 08/19/2009,2006 Influenza, Unspecified 08/26/2022,2020(Deferred: Patient Refused),08/27/2020,08/06/2019(Deferre d: Patient Refused),11/01/2017 Pfizer SARS-CoV-2 Monovalent Vaccination (12+ Yrs) PURPLE 09/26/2022,02/04/2021,01/14/2021 Pneumococcal Conjugate PCV 13 01/25/2015, 015 Pneumococcal Polysaccharide PPV23 07/31/2018,04/2010 Td, adsorbed 12/01/2009 Social History Tobacco Use Types Packs/Day Years Used Date Smoking Tobacco: Never Smokeless Tobacco: Never Tobacco Cessation:Counseling Given: Not Answered Alcohol Use Standard Drinks/Week Comments No 0 (1 standard drink = 0.6 oz pur e alcohol) [facility] [employer] Answer Date Recorded In the past 12 months has [employer], gas, oil, or water Bioxodes threatened to shut off services in your home? No 06/10/2024 Social Connection and Isolat ion Panel [NHANES] Answer Date Recorded In a typical week, how many times do you talk on the phone with family, friends, or neighbors? More than three times a week 06/10/2024 How often do you get togethe r with friends or relatives? Once a week 06/10/2024 How often do you attend [facility] or pentecostal services? Never 06/10/2024 Do you belong to any clubs o r organizations such as jew groups, unions, fraternal or athletic groups, or school groups? No 06/10/2024 How often do you attend meet ings of the clubs or organizations you belong to? Never 06/10/2024 Are you , , di vorced, , never , or living with a partner? 06/10/2024 AUDIT-C Answer Date Recorded Frequency of Alcohol Consumption Not on file 12/19/2022 Q2: How many drinks containi ng alcohol do you have on a typical day when you are drinking? Patient does not drink Frequency of Binge Drinking Not on file 11/27 Overall Financial Resource Strain (CARDIA) Answe r Date Recorded How hard is it for you to pa y for the very basics like food, housing, medical care, and heating? Not hard at all 06/10/2024 PHQ-2 Answer Date Recorded PHQ-2 Total Score (If total score is 3 or more points, staff should administer the PHQ-9) 0 07/25/2024 Hunger Vital Sign Answer Date Recorded Within the past 12 months, y ou worried that your food would run out before you got the money to buy more. Never true 06/10/20 24 Within the past 12 months, t he food you bought just didn't last and you didn't have money to get more. Never true 06/10/2024 PRAPARE - Transportation Answer Date Re corded In the past 12 months, has l ack of transportation kept you from medical appointments or from getting medications? No 05/26 In the past 12 months, has l ack of transportation kept you from meetings, work, or from getting things needed for daily living? No 06/10/2024 Housing Stability Vital Sign Answer Jarteh e Recorded In the last 12 months, was t here a time when you were not able to pay the mortgage or rent on time? No 06/10/2024 In the past 12 months, how m any times have you moved where you were living? 1 06/10/2024 At any time in the past 12 m [facility], were you homeless or living in a retirement (including now)? No 06/10/2024 Personal Safety Answer Date Recorded Have you ever been in or are you currently in a harmful physical or emotional relationship or is someone making you feel afraid or unsafe? Denies 06/09/2024 Sex and Gender Information Value Date Recorded Sex Assigned at Not on file Legal Sex Male 11:52 PM INDUSTRIAL RELATIONS WORKER Gender Identity Not on file Sexual Orientation Not on file Last Filed Vital Signs Vital Sign Reading Time Taken Comments Blood Pressure 142/64 01/26/2025 9:11 AM INDUSTRIAL RELATIONS WORKER Pulse 61 01/26/2025 9:11 AM INDUSTRIAL RELATIONS WORKER Temperature 36.4 C (97.5 F) 01/26/2025 9:11 AM INDUSTRIAL RELATIONS WORKER Respiratory Rate 18 01/26/2025 9:11 AM INDUSTRIAL RELATIONS WORKER Oxygen Saturation 97% 01/26/2025 9:11 AM INDUSTRIAL RELATIONS WORKER Inhaled Oxygen Concentration - - Weight 96.6 kg (213 lb) 01/26/2025 9:11 AM INDUSTRIAL RELATIONS WORKER Height 175.3 cm (5' 9.02 ) 01/26/2025 9:11 AM CS T Body Mass Index 31.44 01/26/2025 9:11 AM INDUSTRIAL RELATIONS WORKER Plan of Treatment Not on file Goals Goal Patient Goal Type Associated Problems Recent Progress Patient-Stated? Author VELVET General Goal - Patient schedules and keeps appointments with all recommended providers [facility] Care Management Cinthia Willard RN Note: Problem: Potential for medical complications and readmission if follow-up appointments are not scheduled Interventions: - Ensure all follow-up appointments are scheduled, all prescribed medications have been received. - Address any barriers for keeping scheduled appointment. - Coordinate with patient/caregiver(s) to ensure patient is able to keep scheduled appointment. - Emphasize importance of keeping scheduled appointments. - Identify and discuss questions for next provider visit. - Follow up with patient after scheduled appointment(s) to review any new orders or changes made to medication regimen. VELVET General Goal - Patient is knowledgeable about condition when worsening and how to respond ACO Care Management Cinthia Willard RN Note: Problem: Knowledge deficit related to signs and symptoms of worsening condition Interventions: - Assess patient's level of understanding related to their condition(s), specific medications and self-management of their chronic conditions. - Send educational materials to patient related to their chronic condition, including signs and symptoms, self-management actions, and serious symptoms that require urgent medical intervention. - Assist patient/provider in developing an action plan for symptom management. - Review with patient weekly: s/s worsening condition, self-management actions to take, when to call CM or provider. Medical Devices Implanted Type Area Hot Tamale Worker Device Identifier Shelf Expiration Date Model / Serial / Lot Cardiac Stents Heart [employer] Surgisis Set Plug Button .4 Cm Graft Soft Tissue Porcine Small Intestine Submucosa Sterile Anal Rectovaginal Fistula [id number] - [id number] Implanted:Qty: 1 on 05/25/2022 by Lonnie Bill MD at [facility] N/A: Rectum [employer] 07/20/2022 [id number] / / [id number] Procedures Procedure Name Priority Date/Time Associated Diagnosis Comments URINALYSIS, MICROSCOPIC ONLY Routine 01/26/2025 9:58 AM INDUSTRIAL RELATIONS WORKER URINE CULTURE Routine 01/26/2025 9:58 AM INDUSTRIAL RELATIONS WORKER URINALYSIS AND REFLEX TO MICROSCOPIC AND CULTURE Routine 01/26/2025 9:58 AM INDUSTRIAL RELATIONS WORKER EGFR Routine 01/22/2025 8:59 AM INDUSTRIAL RELATIONS WORKER DIFFERENTIAL AUTO Routine 01/22/2025 8:5 9 AM INDUSTRIAL RELATIONS WORKER IRON PROFILE W/ IBC Routine 01/22/2025 8 :59 AM INDUSTRIAL RELATIONS WORKER PTH Routine 01/22/2025 8:59 AM INDUSTRIAL RELATIONS WORKER RENAL FUNCTION PANEL Routine 01/22/2025 8:59 AM INDUSTRIAL RELATIONS WORKER CBC WITH AUTO DIFFERENTIAL Routine 01/22/2025 8:59 AM INDUSTRIAL RELATIONS WORKER EGFR Routine 01/07/2025 9:47 AM INDUSTRIAL RELATIONS WORKER DIFFERENTIAL AUTO Routine 01/07/2025 9:4 7 AM INDUSTRIAL RELATIONS WORKER IRON PROFILE W/ IBC Routine 01/07/2025 9 :47 AM INDUSTRIAL RELATIONS WORKER PTH Routine 01/07/2025 9:47 AM INDUSTRIAL RELATIONS WORKER RENAL FUNCTION PANEL Routine 01/07/2025 9:47 AM INDUSTRIAL RELATIONS WORKER CBC WITH AUTO DIFFERENTIAL Routine 01/07/2025 9:47 AM INDUSTRIAL RELATIONS WORKER URINALYSIS, MICROSCOPIC ONLY Routine 12/26/2024 4:37 PM INDUSTRIAL RELATIONS WORKER Dysuria URINE CULTURE Routine 12/26/2024 4:37 PM INDUSTRIAL RELATIONS WORKER URINALYSIS AND REFLEX TO MICROSCOPIC AND CULTURE Routine 12/26/2024 4:37 PM INDUSTRIAL RELATIONS WORKER Dysuria EGFR Routine 12/19/2024 9:41 AM INDUSTRIAL RELATIONS WORKER Controlled type 2 diabetes mellitus with complication, without long-term current use of insulin (HCC) COMPREHENSIVE METABOLIC PANEL Routine 12/19/2024 9:41 AM INDUSTRIAL RELATIONS WORKER Controlled type 2 diabetes mellitus with complication, without long-term current use of insulin (HCC) HEMOGLOBIN A1C Routine 12/19/2024 9:41 AM INDUSTRIAL RELATIONS WORKER Controlled type 2 diabetes mellitus with complication, without long-term current use of insulin (HCC) LIPID PANEL Routine 12/19/2024 9:41 AM INDUSTRIAL RELATIONS WORKER Controlled type 2 diabetes mellitus with complication, without long-term current use of insulin (HCC) ALBUMIN CREATININE RATIO, URINE Routine 10/20/2024 10:12 AM INDUSTRIAL RELATIONS WORKER Controlled type 2 diabetes mellitus with stage 3 chronic kidney disease, with long-term current use of insulin (HCC) PSA SCREEN Routine 10/20/2024 10:12 AM INDUSTRIAL RELATIONS WORKER Benign prostatic hyperplasia with urinary frequency DIABETIC EYE EXAM Routine 04/22/2024 COLONOSCOPY 06/23/2021 9:01 AM CDT HM DIABETES FOOT EXAM Routine 02/15/2017 from Last 3 Months or Most Recently Relevant to Health Maintenance Results * (ABNORMAL) Urinalysis reflex to microscopic and culture Urine (01/26/2025 9:58 AM INDUSTRIAL RELATIONS WORKER) Color, ur Yellow Yellow Clarity, ur Turbid(A) Clear [facility] Specific gravity, ur 1.014 1.003 - 1.030 CERNER CH pH, urine 6.0 [facility] Comment: Interpretive Data U rine pH is affected by diet, medications, systemic acid-base disturbances, and renal tubular function. pH may affect urinary stone formation. For example, urine pH below 6.0 may help reduce the tendency for calcium phosphate stones and pH greater than 6.0 may reduce the tendency for uric acid stone formation. Source: [facility] Locally Current Interpretive Data was last revised on 2017 Protein, ur ql Negative Negative [facility] Glucose, ur ql Negative Negative [facility] Ketones, ur Negative Negative [facility] Bilirubin, ur Negative Negative [facility] Blood, ur 3+(A) Negative [facility] Urobilinogen, ur 2.0(A) <2.0 mg/dL [facility] Nitrite, ur Negative Negative [facility] Leukocyte esterase, ur 4+(A) Negative [facility] UA reflex comment Reflex to microscopic UA will be performed. CERNER Urine 01/26/2025 9:58 AM INDUSTRIAL RELATIONS WORKER 01/26/2025 2:11 PM INDUSTRIAL RELATIONS WORKER us Irineo Terrazas MD LAB MICROBIOLOGY - GENERA L ORDERABLES Final Result [facility] [address] Department [place] [address] * (ABNORMAL) Urinalysis, microscopic only (01/26/2025 9:58 AM INDUSTRIAL RELATIONS WORKER) WBC, ur >50(A) 0 - 5 /HPF RBC, ur >50(A) 0 - 2 /HPF [facility] Bacteria, ur 1+(A) [facility] Mucous, ur Present(A) [facility] Culture Reflex Comment Reflex to urine culture will be performed. CERNER Urine 01/26/2025 9:58 AM INDUSTRIAL RELATIONS WORKER 01/26/2025 2:24 PM INDUSTRIAL RELATIONS WORKER Irineo Terrazas MD LAB URINE ORDERABLES Steffany l Result Performing Organization Address City/[facility]/ZIP Co de Phone Number OMAR AVIL[facility] [address] [place] [address] * (ABNORMAL) Urine culture Urine (01/26/2025 9:58 AM INDUSTRIAL RELATIONS WORKER) Report Final Report: Greater than or equal to 100,000 colonies/mL of Escherichia coli (.) Comment:Testing performed by : [facility], [address] [place]., [address] Organism ESCHERICHIA COLI OMAR Urine 01/26/2025 9:58 AM INDUSTRIAL RELATIONS WORKER 01/26/2025 4:55 PM INDUSTRIAL RELATIONS WORKER Narrative OMAR - 01/28/2025 10:02 AM INDUSTRIAL RELATIONS WORKER Urine culture reflexed based upon urinalysis results. Testing performed by [facility] Microbiology Laboratory ([phone]) Organism Antibiotic Method Susceptibility Escherichia coli Ampicillin INTERPRETATION Susceptible Escherichia coli Cefazolin INTERPRETATION Susceptible Escherichia coli Nitrofurantoin INTERPRETATION Susceptible Escherichia coli Gentamicin INTERPRETATION Susceptible Escherichia coli Trimethoprim with Sulfamethoxazole IN TERPRETATION Susceptible Escherichia coli Meropenem INTERPRETATION Susceptible Escherichia coli Cefepime INTERPRETATION Susceptible Escherichia coli Ciprofloxacin INTERPRETATION Susceptible Escherichia coli Ceftazidime INTERPRETATION Susceptible Escherichia coli Ceftriaxone INTERPRETATION Susceptible Escherichia coli Piperacillin/Tazobactam INTERPRETATIO N Susceptible Escherichia coli Cephalexin INTERPRETATION Susceptible Escherichia coli Cefuroxime-axetil INTERPRETATION Susceptible Escherichia coli Cefdinir INTERPRETATION Susceptible Irineo Terrazas MD LAB MICROBIOLOGY - GENERA L ORDERABLES Final Result [facility] [address] [place] [address] * (ABNORMAL) eGFR (01/22/2025 8:59 AM INDUSTRIAL RELATIONS WORKER) eGFR 48(L) >=60 mL/min/1. 73 m2 Comment: Interpretive Data Reference Interval Normal >/= 90 mL/min/1.73m2 Mildly decreased* 60 - 89 mL/min/1.73m2 Mildly to moderately decreased 45 - 59 mL/min/1.73m2 Moderately to severely decreased 30 - 44 mL/min/1.73m2 Severely decreased 15 - 29 mL/min/1.73m2 Kidney Failure < 15 mL/min/1.73m2 *Relative to young adult level Estimated glomerular filtration rate is determined by the 2020 CKD-EPI equation recommended by the National Kidney Foundation (A Unifying Approach to GFR Estimation: Recommendations of the NKF-ASK Task Force on Reassessing the Inclusion of Race in Diagnosing Kidney Disease, JASN 2020). The CKD-EPI equation should not be used for patients with unstable renal function and has not been validated in children and those over 70. Current interpretive data was last reviewed 2021. Testing performed by: [address] [address] Blood 01/22/2025 8:59 AM INDUSTRIAL RELATIONS WORKER 01/22/2025 1:05 PM INDUSTRIAL RELATIONS WORKER Caio Zaragoza MD LAB BLOOD ORDERABLES Final Re sult OMAR AGUILAR ([place]) 1 [facility] Department [place] [address] * Differential, auto (01/22/2025 8:59 AM INDUSTRIAL RELATIONS WORKER) Neutrophil abs 3.7 1.5 - 6.5 K/cumm Comment:Testing performed by : [address], [address] Imm gran abs 0.0 0.0 - 0.1 K/cumm [facility] (DANIEL) Comment:Testing performed by : [address] [address] Lymphocyte abs 0.8 0.8 - 3.3 K/cumm [facility] (DANIEL) Comment:Testing performed by : [address] [address] Monocyte abs 0.5 0.2 - 0.8 K/cumm [facility] (DANIEL) Comment:Testing performed by : [address], [address] Eosinophil abs 0.1 0.0 - 0.5 K/cumm [facility] (DANIEL) Comment:Testing performed by : [facility], [address] [place] [address]., [address] Basophil abs 0.0 0.0 - 0.1 K/cumm [facility] (DANIEL) Comment:Testing performed by : [facility], [address] [place] [address]., [address] Neutrophil pct 71.7 % [facility] (DANIEL) Comment: Interpretive Data Percent cell count reference ranges are not reported, since discordance with absolute values may lead to misinterpretation of CBC data. Current Interpretive Data was last revised on 2018. Testing performed by: [address] [address] Imm gran pct 0.4 % [facility] (DANIEL) Comment: Interpretive Data Percent cell count reference ranges are not reported, since discordance with absolute values may lead to misinterpretation of CBC data. Current Interpretive Data was last revised on 2018. Testing performed by: [address] [address] Lymphocyte pct 15.7 % [facility] (DANIEL) Comment: Interpretive Data Percent cell count reference ranges are not reported, since discordance with absolute values may lead to misinterpretation of CBC data. Current Interpretive Data was last revised on 2018. Testing performed by: [address] [address] Monocyte pct 9.3 % [facility] (DANIEL) Comment: Interpretive Data Percent cell count reference ranges are not reported, since discordance with absolute values may lead to misinterpretation of CBC data. Current Interpretive Data was last revised on 2018. Testing performed by: [address] [address] Eosinophil pct 2.5 % [facility] (DANIEL) Comment: Interpretive Data Percent cell count reference ranges are not reported, since discordance with absolute values may lead to misinterpretation of CBC data. Current Interpretive Data was last revised on 2018. Testing performed by: [address] [address] Basophil pct 0.4 % [facility] (DANIEL) Comment: Interpretive Data Percent cell count reference ranges are not reported, since discordance with absolute values may lead to misinterpretation of CBC data. Current Interpretive Data was last revised on 2018. Testing performed by: [address], [address] Blood 01/22/2025 8:59 AM INDUSTRIAL RELATIONS WORKER 01/22/2025 8:59 AM INDUSTRIAL RELATIONS WORKER Caio Zaragoza MD LAB BLOOD ORDERABLES Final Re sult Performing Organization Address [facility]/ZIP Co de Phone Number [facility] (DANIEL) 1 [facility] [place] [address] * (ABNORMAL) Iron profile w/ IBC (01/22/2025 8:59 AM INDUSTRIAL RELATIONS WORKER) Iron 54 50 - 150 mcg/dl Comment:Testing performed by : [address], [address] TIBC 302 250 - 400 mcg/dL OMAR AGUILAR (DANIEL) Comment:Testing performed by : [facility], [address] [place] [address], [address] Transferrin saturation 18(L) 20 - 50 % OMAR AGUILAR (DANIEL) Comment:Testing performed by : [address], [address] Blood 01/22/2025 8:59 AM INDUSTRIAL RELATIONS WORKER 01/22/2025 8:59 AM INDUSTRIAL RELATIONS WORKER Caio Zaragoza MD LAB BLOOD ORDERABLES Final Re sult Performing Organization Address [facility] Co de Phone Number OMAR AGUILAR (DANIEL) 1 [facility] [place] [address] * (ABNORMAL) CBC with auto differential (01/22/2025 8:59 AM INDUSTRIAL RELATIONS WORKER) WBC 5.2 3.8 - 9.9 K/cumm Comment:Testing performed by : [address], [address] Hgb 10.2(L) 13.0 - 17.5 g/dL [facility] (DANIEL) Comment:Testing performed by : [facility], [address] [place] [address], [address] Hct 32.5(L) 38.9 - 50.3 % [facility] (DANIEL) Comment:Testing performed by : [address], [address] Plt 127(L) 150 - 400 K/cumm [facility] (DANIEL) Comment:Testing performed by : [address], [address] MPV 12.0 9.1 - 12.3 fL [facility] (DANIEL) Comment:Testing performed by : [address], [address] RBC 3.44(L) 4.30 - 5.80 M/cumm [facility] (DANIEL) Comment:Testing performed by : [address], [address] MCV 94.5 81.3 - 96.4 fL [facility] (DANIEL) Comment:Testing performed by : [address], [address] MCH 29.7 27.1 - 33.3 pg [facility] (DANIEL) Comment:Testing performed by : [address], [address] MCHC 31.4(L) 32.3 - 35.7 g/dL [facility] ([place]ANIEL) Comment:Testing performed by : [address], [address] RDW CV 14.7 11.1 - 14.9 % [facility] (DANIEL) Comment:Testing performed by : [address], [address] RDW SD 50.5(H) 35.7 - 48.1 fL [facility] (DANIEL) Comment:Testing performed by : [address], [address] NRBC abs 0.00 0.00 - 0.01 K/cumm [facility] ([place]ANIEL) Comment:Testing performed by : [address], [address] Blood 01/22/2025 8:59 AM INDUSTRIAL RELATIONS WORKER 01/22/2025 8:59 AM INDUSTRIAL RELATIONS WORKER us Caio Zaragoza MD LAB BLOOD ORDERABLES Final Re sult Performing Organization Address [facility] Co de Phone Number OMAR AGUILAR ([place]) [address] [place] [address] * (ABNORMAL) PTH (01/22/2025 8:59 AM INDUSTRIAL RELATIONS WORKER) PTH 68(H) 15 - 65 pg/mL Comment:Testing performed by : [facility], [address] [place] [address], [address] Blood 01/22/2025 8:59 AM INDUSTRIAL RELATIONS WORKER 01/22/2025 9:00 AM INDUSTRIAL RELATIONS WORKER us Caio Zaragoza MD LAB BLOOD ORDERABLES Final Re sult Performing Organization Address [facility] de Phone Number OMAR AGUILAR ([place]) [address] [place] [address] * (ABNORMAL) Renal function panel (01/22/2025 8:59 AM INDUSTRIAL RELATIONS WORKER) Pathologist [facility] Sodium 140 135 - 145 mmol/L Comment:Testing performed by : [address] [address] Potassium, pl 4.2 3.3 - 4.9 mmol/L [facility] (DANIEL) Comment:Testing performed by : [address], [address] Chloride 105 97 - 110 mmol/L [facility] (DANIEL) Comment:Testing performed by : [address] [address] CO2 25 22 - 32 mmol/L [facility] (DANIEL) Comment:Testing performed by : [address], [address] Anion gap 10 2 - 15 mmol/L [facility] (DANIEL) Comment:Testing performed by : [address], [address] BUN 31(H) 6 - 25 mg/dL [facility] (DANIEL) Comment:Testing performed by : [facility], [address] [place] [address]., [address] Creatinine 1.48(H) 0.80 - 1.30 mg/dL [facility] (DANIEL) Comment:Testing performed by : [facility], [address] [place] [address]., [address] Glucose 127 70 - 199 mg/dL [facility] (DANIEL) Comment: Interpretive Data Fasting glucose >/= 126 mg/dl is diagnostic for diabetes. Fasting is defined as no caloric intake for at least 8 hours. Fasting glucose between 100 mg/dl to 125 mg/dl is diagnostic of prediabetes. In a patient with classic symptoms of hyperglycemia or hyperglycemic crisis, a random glucose >/= 200 mg/dl is diagnostic for diabetes. In the absence of unequivocal hyperglycemia, results should be confirmed by repeat testing. The classification and Diagnosis of Diabetes Diabetes Care 2021; 46: S19-S40. Current interpretive data was last revised 2022. Testing performed by: [facility], [address] [place] [address]., [address] Calcium 10.4(H) 8.5 - 10.3 mg/dL [facility] (DANIEL) Comment:Testing performed by : [address] [address] Phosphorus, pl 2.7 2.3 - 4.5 mg/dL [facility] (DANIEL) Comment:Testing performed by : [facility], [address] [place] [address], [address] Albumin 3.9 3.5 - 5.0 g/dL [facility] (DANIEL) Comment:Testing performed by : [address], [address] Blood 01/22/2025 8:59 AM INDUSTRIAL RELATIONS WORKER 01/22/2025 8:59 AM INDUSTRIAL RELATIONS WORKER us Caio Zaragoza MD LAB BLOOD ORDERABLES Final Re sult OMAR AGUILAR ([place]) 1 [facility] Department [place] [address] * (ABNORMAL) eGFR (01/07/2025 9:47 AM INDUSTRIAL RELATIONS WORKER) eGFR 46(L) >=60 mL/min/1. 73 m2 Comment: Interpretive Data Reference Interval Normal >/= 90 mL/min/1.73m2 Mildly decreased* 60 - 89 mL/min/1.73m2 Mildly to moderately decreased 45 - 59 mL/min/1.73m2 Moderately to severely decreased 30 - 44 mL/min/1.73m2 Severely decreased 15 - 29 mL/min/1.73m2 Kidney Failure < 15 mL/min/1.73m2 *Relative to young adult level Estimated glomerular filtration rate is determined by the 2020 CKD-EPI equation recommended by the National Kidney Foundation (A Unifying Approach to GFR Estimation: Recommendations of the NKF-ASK Task Force on Reassessing the Inclusion of Race in Diagnosing Kidney Disease, JASN 2020). The CKD-EPI equation should not be used for patients with unstable renal function and has not been validated in children and those over 70. Current interpretive data was last reviewed 2021. Testing performed by: [address], [address] Blood 01/07/2025 9:47 AM INDUSTRIAL RELATIONS WORKER 01/07/2025 1:16 PM INDUSTRIAL RELATIONS WORKER us Caio Zaragoza MD LAB BLOOD ORDERABLES Final Re sult OMAR AGUILAR ([place]) 1 [facility] Department [place] [address] * Differential, auto (01/07/2025 9:47 AM INDUSTRIAL RELATIONS WORKER) Neutrophil abs 1.8 1.5 - 6.5 K/cumm Comment:Testing performed by : [facility], [address] [place] [address], [address] Imm gran abs 0.0 0.0 - 0.1 K/cumm OMAR AGUILAR (DANIEL) Comment:Testing performed by : [facility], [address] [place] [address], [address] Lymphocyte abs 0.9 0.8 - 3.3 K/cumm OMAR AGUILAR (DANIEL) Comment:Testing performed by : [facility], [address] [place] [address]., [address] Monocyte abs 0.3 0.2 - 0.8 K/cumm [facility] (DANIEL) Comment:Testing performed by : [facility], [address] [place] [address]., [address] Eosinophil abs 0.1 0.0 - 0.5 K/cumm [facility] (DANIEL) Comment:Testing performed by : [facility], [address] [place] [address]., [address] Basophil abs 0.0 0.0 - 0.1 K/cumm [facility] (DANIEL) Comment:Testing performed by : [facility], [address] [place] [address]., [address] Neutrophil pct 58.6 % [facility] (DANIEL) Comment: Interpretive Data Percent cell count reference ranges are not reported, since discordance with absolute values may lead to misinterpretation of CBC data. Current Interpretive Data was last revised on 2018. Testing performed by: [facility], [address] [place] [address]., [address] Imm gran pct 0.3 % [facility] (DANIEL) Comment: Interpretive Data Percent cell count reference ranges are not reported, since discordance with absolute values may lead to misinterpretation of CBC data. Current Interpretive Data was last revised on 2018. Testing performed by: [facility], [address] [place] [address]., [address] Lymphocyte pct 29.1 % [facility] (DANIEL) Comment: Interpretive Data Percent cell count reference ranges are not reported, since discordance with absolute values may lead to misinterpretation of CBC data. Current Interpretive Data was last revised on 2018. Testing performed by: [facility], [address] [place] [address]., [address] Monocyte pct 8.7 % [facility] (DANIEL) Comment: Interpretive Data Percent cell count reference ranges are not reported, since discordance with absolute values may lead to misinterpretation of CBC data. Current Interpretive Data was last revised on 2018. Testing performed by: [address] [address] Eosinophil pct 3.0 % [facility] (DANIEL) Comment: Interpretive Data Percent cell count reference ranges are not reported, since discordance with absolute values may lead to misinterpretation of CBC data. Current Interpretive Data was last revised on 2018. Testing performed by: [facility], [address] [place] [address]., [address] Basophil pct 0.3 % OMAR AGUILAR (DANIEL) Comment: Interpretive Data Percent cell count reference ranges are not reported, since discordance with absolute values may lead to misinterpretation of CBC data. Current Interpretive Data was last revised on 2018. Testing performed by: [facility], [address] [place] [address], [address] Blood 01/07/2025 9:47 AM INDUSTRIAL RELATIONS WORKER 01/07/2025 9:47 AM INDUSTRIAL RELATIONS WORKER us Caio Zaragoza MD LAB BLOOD ORDERABLES Final Re sult Performing Organization Address [facility] Co de Phone Number OMAR AGUILAR ([place]) 1 [facility] [place] [address] * Iron profile w/ IBC (01/07/2025 9:47 AM INDUSTRIAL RELATIONS WORKER) Iron 63 50 - 150 mcg/dl Comment:Testing performed by : [facility], [address] [place] [address], [address] TIBC 292 250 - 400 mcg/dL OMAR AGUILAR (DANIEL) Comment:Testing performed by : [facility], [address] [place] [address], [address] Transferrin saturation 22 20 - 50 % OMAR AGUILAR (DANIEL) Comment:Testing performed by : [address], [address] Blood 01/07/2025 9:47 AM INDUSTRIAL RELATIONS WORKER 01/07/2025 9:48 AM INDUSTRIAL RELATIONS WORKER us Caio Zaragoza MD LAB BLOOD ORDERABLES Final Re sult Performing Organization Address [facility] Co de Phone Number OMAR AGUILAR ([place]) 1 [facility] [place] [address] * (ABNORMAL) CBC with auto differential (01/07/2025 9:47 AM INDUSTRIAL RELATIONS WORKER) [facility] WBC 3.0(L) 3.8 - 9.9 K/cumm Comment:Testing performed by : [address], [address] Hgb 9.8(L) 13.0 - 17.5 g/dL [facility] (DANIEL) Comment:Testing performed by : [address], [address] Hct 31.3(L) 38.9 - 50.3 % [facility] (DANIEL) Comment:Testing performed by : [address], [address] Plt 119(L) 150 - 400 K/cumm [facility] (DANIEL) Comment:Testing performed by : [address], [address] MPV 11.6 9.1 - 12.3 fL [facility] (DANIEL) Comment:Testing performed by : [address], [address] RBC 3.41(L) 4.30 - 5.80 M/cumm [facility] (DANIEL) Comment:Testing performed by : [address], [address] MCV 91.8 81.3 - 96.4 fL [facility] (DANIEL) Comment:Testing performed by : [address], [address] MCH 28.7 27.1 - 33.3 pg [facility] (DANIEL) Comment:Testing performed by : [address], [address] MCHC 31.3(L) 32.3 - 35.7 g/dL [facility] (DANIEL) Comment:Testing performed by : [address], [address] RDW CV 14.0 11.1 - 14.9 % [facility] (DANIEL) Comment:Testing performed by : [address], [address] RDW SD 47.2 35.7 - 48.1 fL [facility] (DANIEL) Comment:Testing performed by : [address], [address] NRBC abs 0.00 0.00 - 0.01 K/cumm [facility] (DANIEL) Comment:Testing performed by : [facility], [address] [place] [address], [address] Blood 01/07/2025 9:47 AM INDUSTRIAL RELATIONS WORKER 01/07/2025 9:47 AM INDUSTRIAL RELATIONS WORKER Caio Zaragoza MD LAB BLOOD ORDERABLES Final Re sult Performing Organization Address [facility] Co de Phone Number OMAR AGUILAR ([place]ANI[place]) 1 [facility] [place] [address] * (ABNORMAL) PTH (01/07/2025 9:47 AM INDUSTRIAL RELATIONS WORKER) Pathologist [facility] PTH 69(H) 15 - 65 pg/mL Comment:Testing performed by : [facility], [address] [place] [address], [address] Blood 01/07/2025 9:47 AM INDUSTRIAL RELATIONS WORKER 01/07/2025 9:48 AM INDUSTRIAL RELATIONS WORKER Caio Zaragoza MD LAB BLOOD ORDERABLES Final Re sult Performing Organization Address [facility] de Phone Number OMRA AGUILAR (DANIEL) 1 [place] [address] * (ABNORMAL) Renal function panel (01/07/2025 9:47 AM INDUSTRIAL RELATIONS WORKER) Sodium 139 135 - 145 mmol/L Comment:Testing performed by : [facility], [address] [place] [address], [address] Potassium, pl 4.0 3.3 - 4.9 mmol/L [facility] (DANIEL) Comment:Testing performed by : [facility], [address] [place] [address], [address] Chloride 100 97 - 110 mmol/L [facility] (DANIEL) Comment:Testing performed by : [facility], [address] [place] [address], [address] CO2 26 22 - 32 mmol/L [facility] (DANIEL) Comment:Testing performed by : [facility], [address] [place] [address]., [address] Anion gap 13 2 - 15 mmol/L [facility] (DANIEL) Comment:Testing performed by : [address] [address] BUN 35(H) 6 - 25 mg/dL [facility] (DANIEL) Comment:Testing performed by : [address], [address] Creatinine 1.52(H) 0.80 - 1.30 mg/dL [facility] (DANIEL) Comment:Testing performed by : [address], [address] Glucose 97 70 - 199 mg/dL [facility] (DANIEL) Comment: Interpretive Data Fasting glucose >/= 126 mg/dl is diagnostic for diabetes. Fasting is defined as no caloric intake for at least 8 hours. Fasting glucose between 100 mg/dl to 125 mg/dl is diagnostic of prediabetes. In a patient with classic symptoms of hyperglycemia or hyperglycemic crisis, a random glucose >/= 200 mg/dl is diagnostic for diabetes. In the absence of unequivocal hyperglycemia, results should be confirmed by repeat testing. The classification and Diagnosis of Diabetes Diabetes Care 202; 46: S19-S40. Current interpretive data was last revised 2022. Testing performed by: [address] [address] Calcium 10.2 8.5 - 10.3 mg/dL [facility] (DANIEL) Comment:Testing performed by : [address] [address] Phosphorus, pl 2.6 2.3 - 4.5 mg/dL [facility] (DANIEL) Comment:Testing performed by : [address], [address] Albumin 3.8 3.5 - 5.0 g/dL [facility] (DANIEL) Comment:Testing performed by : [address], [address] Blood 01/07/2025 9:47 AM INDUSTRIAL RELATIONS WORKER 01/07/2025 9:48 AM INDUSTRIAL RELATIONS WORKER Caio Zaragoza MD LAB BLOOD ORDERABLES Final Re sult [facility] 1 [facility] Department [place] [address] * (ABNORMAL) Urinalysis reflex to microscopic and culture Urine (12/26/2024 4:37 PM INDUSTRIAL RELATIONS WORKER) Color, ur Yellow Yellow Clarity, ur Turbid(A) Clear [facility] Specific gravity, ur 1.009 1.003 - 1.030 [facility] pH, urine 5.0 [facility] Comment: Interpretive Data U rine pH is affected by diet, medications, systemic acid-base disturbances, and renal tubular function. pH may affect urinary stone formation. For example, urine pH below 6.0 may help reduce the tendency for calcium phosphate stones and pH greater than 6.0 may reduce the tendency for uric acid stone formation. Source: [facility] Locally Current Interpretive Data was last revised on 2017 Protein, ur ql Negative Negative [facility] Glucose, ur ql Negative Negative [facility] Ketones, ur Negative Negative [facility] Bilirubin, ur Negative Negative [facility] Blood, ur Trace(A) Negative [facility] Urobilinogen, ur <2.0 <2.0 mg/dL [facility] Nitrite, ur Negative Negative [facility] Leukocyte esterase, ur 3+(A) Negative [facility] UA reflex comment Reflex to microscopic UA will be performed. [facility] Urine 12/26/2024 4:37 PM INDUSTRIAL RELATIONS WORKER 12/26/2024 9:06 PM INDUSTRIAL RELATIONS WORKER us Irineo Terrazas MD LAB MICROBIOLOGY - GENERA L ORDERABLES Final Result [facility] [address] [address] Department [place] [address] * (ABNORMAL) Urinalysis, microscopic only (12/26/2024 4:37 PM INDUSTRIAL RELATIONS WORKER) WBC, ur 21-50(A) 0 - 5 /HPF RBC, ur 6-10(A) 0 - 2 /HPF [facility] Bacteria, ur Trace(A) [facility] Mucous, ur Present(A) [facility] Culture Reflex Comment Reflex to urine culture will be performed. [facility] Urine 12/26/2024 4:37 PM INDUSTRIAL RELATIONS WORKER 12/26/2024 9:06 PM INDUSTRIAL RELATIONS WORKER Irineo Terrazas MD LAB URINE ORDERABLES Steffany sky Result [facility] [address] Department [place] [address] * (ABNORMAL) Urine culture Urine (12/26/2024 4:37 PM INDUSTRIAL RELATIONS WORKER) Report Final Report: Greater than or equal to 100,000 colonies/mL of Escherichia coli Greater than or equal to 100,000 colonies/mL of Escherichia coli #2 Greater than or equal to 100,000 colonies/mL of Escherichia coli #3 (.) Comment:Testing performed by : [facility], [address] [place]., [address] Organism ESCHERICHIA COLI [facility] Organism ESCHERICHIA COLI [facility] Organism ESCHERICHIA COLI [facility] Urine 12/26/2024 4:37 PM INDUSTRIAL RELATIONS WORKER 12/27/2024 12:05 AM INDUSTRIAL RELATIONS WORKER Narrative [facility] - 12/29/2024 10:44 AM INDUSTRIAL RELATIONS WORKER Urine culture reflexed based upon urinalysis results. Testing performed by [facility] Microbiology Laboratory ([phone]) Organism Antibiotic Method Susceptibility Escherichia coli Ampicillin INTERPRETATION Susceptible Escherichia coli Cefazolin INTERPRETATION Susceptible Escherichia coli Nitrofurantoin INTERPRETATION Susceptible Escherichia coli Gentamicin INTERPRETATION Susceptible Escherichia coli Trimethoprim with Sulfamethoxazole IN TERPRETATION Susceptible Escherichia coli Meropenem INTERPRETATION Susceptible Escherichia coli Cefepime INTERPRETATION Susceptible Escherichia coli Ciprofloxacin INTERPRETATION Susceptible Escherichia coli Ceftazidime INTERPRETATION Susceptible Escherichia coli Ceftriaxone INTERPRETATION Susceptible Escherichia coli Piperacillin/Tazobactam INTERPRETATIO N Susceptible Escherichia coli Cephalexin INTERPRETATION Susceptible Escherichia coli Cefuroxime-axetil INTERPRETATION Susceptible Escherichia coli Cefdinir INTERPRETATION Susceptible Escherichia coli Ampicillin INTERPRETATION Susceptible Escherichia coli Cefazolin INTERPRETATION Susceptible Escherichia coli Nitrofurantoin INTERPRETATION Susceptible Escherichia coli Gentamicin INTERPRETATION Susceptible Escherichia coli Trimethoprim with Sulfamethoxazole IN TERPRETATION Susceptible Escherichia coli Meropenem INTERPRETATION Susceptible Escherichia coli Cefepime INTERPRETATION Susceptible Escherichia coli Ciprofloxacin INTERPRETATION Susceptible Escherichia coli Ceftazidime INTERPRETATION Susceptible Escherichia coli Ceftriaxone INTERPRETATION Susceptible Escherichia coli Piperacillin/Tazobactam INTERPRETATIO N Susceptible Escherichia coli Cephalexin INTERPRETATION Susceptible Escherichia coli Cefuroxime-axetil INTERPRETATION Susceptible Escherichia coli Cefdinir INTERPRETATION Susceptible Escherichia coli Ampicillin INTERPRETATION Susceptible Escherichia coli Cefazolin INTERPRETATION Susceptible Escherichia coli Nitrofurantoin INTERPRETATION Susceptible Escherichia coli Gentamicin INTERPRETATION Susceptible Escherichia coli Trimethoprim with Sulfamethoxazole IN TERPRETATION Susceptible Escherichia coli Meropenem INTERPRETATION Susceptible Escherichia coli Cefepime INTERPRETATION Susceptible Escherichia coli Ciprofloxacin INTERPRETATION Susceptible Escherichia coli Ceftazidime INTERPRETATION Susceptible Escherichia coli Ceftriaxone INTERPRETATION Susceptible Escherichia coli Piperacillin/Tazobactam INTERPRETATIO N Susceptible Escherichia coli Cephalexin INTERPRETATION Susceptible Escherichia coli Cefuroxime-axetil INTERPRETATION Susceptible Escherichia coli Cefdinir INTERPRETATION Susceptible us Irineo Terrazas MD LAB MICROBIOLOGY - GENERA L ORDERABLES Final Result [facility] [address] [facility] Department [place] [address] * (ABNORMAL) eGFR (12/19/2024 9:41 AM INDUSTRIAL RELATIONS WORKER) eGFR 47(L) >=60 mL/min/1. 73 m2 Comment: Interpretive Data Reference Interval Normal >/= 90 mL/min/1.73m2 Mildly decreased* 60 - 89 mL/min/1.73m2 Mildly to moderately decreased 45 - 59 mL/min/1.73m2 Moderately to severely decreased 30 - 44 mL/min/1.73m2 Severely decreased 15 - 29 mL/min/1.73m2 Kidney Failure < 15 mL/min/1.73m2 *Relative to young adult level Estimated glomerular filtration rate is determined by the 2020 CKD-EPI equation recommended by the National Kidney Foundation (A Unifying Approach to GFR Estimation: Recommendations of the NKF-ASK Task Force on Reassessing the Inclusion of Race in Diagnosing Kidney Disease, JASN 2020). The CKD-EPI equation should not be used for patients with unstable renal function and has not been validated in children and those over 70. Current interpretive data was last reviewed 2021. Testing performed by: [facility], [address] [place] [address], [place]., [address] Blood 12/19/2024 9:41 AM INDUSTRIAL RELATIONS WORKER 12/19/2024 12:55 PM INDUSTRIAL RELATIONS WORKER Irineo Terrazas MD LAB BLOOD ORDERABLES Steffany l Result [facility] ([place]) [address] [place] [address] * (ABNORMAL) Hemoglobin A1c (12/19/2024 9:41 AM INDUSTRIAL RELATIONS WORKER) Hgb A1C 6.3(H) 4.0 - 5.6 % Comment:Testing performed by : [facility], [address] [place] [address]., [address] Estimated Average Glucose 134 mg/dL [facility]) Comment: The ADA recommends reporting an estimated Average Glucose (eAG) with all Hemoglobin A1c results using the equation derived from a study of 507 normal and diabetic adults. Minority populations were underrepresented and children were not included. (Diabetes Care 31:6600-4714, 2008). The eAG is not equivalent to a fasting glucose. Testing performed by: [facility], [address] [place] [address]., [address] Blood 12/19/2024 9:41 AM INDUSTRIAL RELATIONS WORKER 12/19/2024 12:38 PM INDUSTRIAL RELATIONS WORKER Irineo Terrazas MD LAB BLOOD ORDERABLES Steffany l Result Performing Organization Address City/[facility] Co de Phone Number [facility] ([place]) 1 [facility] [place] [address] * (ABNORMAL) Lipid panel (12/19/2024 9:41 AM INDUSTRIAL RELATIONS WORKER) Cholesterol 95 30 - 199 mg/dL Comment: Interpretive Data Ages < or = 19 years Acceptable: <170 mg/dL Borderline high: 170-199 mg/dL High: >or= 200 mg/dL Ages > or = 20 years Desirable: <200 mg/dL Borderline high: 200-239 mg/dL High: >or= 240 mg/dL Literature References: 1. Expert Panel on Integrated Guidelines for Cardiovascular Health and Risk Reduction in Children and Adolescents. Pediatrics 2011;128:S213 2. NCEP Expert Panel. Circulation 2004;110:227 Current Interpretive Data was last revised on 2018. Testing performed by: [facility], [address] [place] [address]., [address] Triglycerides 110 <=149 mg/dL [facility] (DANIEL) Comment: Interpretive Data Ages < or = 9 years Acceptable: <75 mg/dL Borderline high: 75-99 mg/dL High: >or= 100 mg/dL Ages 10 to 20 years Acceptable: <90 mg/dL Borderline high: 90-129 mg/dL High: >or= 130 mg/dL Ages > or = 20 years Desirable: <150 mg/dL Borderline high: 150-199 mg/dL High: 200-499 mg/dL Very high: >or= 499 mg/dL Literature References: 1. Expert Panel on Integrated Guidelines for Cardiovascular Health and Risk Reduction in Children and Adolescents. Pediatrics 2011;128:S213 2. NCEP Expert Panel. Circulation 2004;110:227 Current Interpretive Data was last revised on 2018. Testing performed by: [facility], [address] [place] [address]., [address] HDL 30(L) >=40 mg/dL [facility] (DANIEL) Comment: Interpretive Data Ages < or = 19 years Acceptable: >45 mg/dL Borderline low: 40-45 mg/dL Low: <40 mg/dL Ages > or = 20 years Desirable: >or= 60 mg/dL Low: <40 mg/dL Literature References: 1. Expert Panel on Integrated Guidelines for Cardiovascular Health and Risk Reduction in Children and Adolescents. Pediatrics 2011;128:S213 2. NCEP Expert Panel. Circulation 2004;110:227 Current Interpretive Data was last revised on 2018. Testing performed by: [facility], [address] [place] [address]., [address] LDL, calculated 44 <=129 mg/dL [facility] (DANIEL) Comment: Interpretive Data Ages < or = 19 years Acceptable: <110 mg/dL Borderline high: 110-129 mg/dL High: >or= 130 mg/dL Ages > or = 20 years Optimal: <100 mg/dL Near optimal: 100-129 mg/dL Borderline high: 130-159 mg/dL High: >160 mg/dL Calculated using the Gillespie LDL-C estimating equation. This equation was implemented on 2024. Prior to this date LDL-C was estimated using the Friedewald equation. Literature References: 1. Expert Panel on Integrated Guidelines for Cardiovascular Health and Risk Reduction in Children and Adolescents. Pediatrics 2011;128:S213 2. NCEP Expert Panel. Circulation 2004;110:227 3. Jose Miguel Zheng et al. DAVE Cardiol. 2019March 26;5(5):540-548. doi: 10.1001/[email or web address] Current Interpretive Data was last revised on 2024. Testing performed by: [address] [address] Non-HDL Cholesterol 65 mg/dL [facility] ([place]ANI[facility]) Comment: Interpretive Data Ages < or = 19 years Acceptable: <120 mg/dL Borderline high: 120-144 mg/dL High: >145 mg/dL Ages > or = 20 years When triglycerides are >200 mg/dL, Non-HDL cholesterol is a secondary target of therapy with treatment goals that are 30 mg/dL greater than the LDL cholesterol target. Literature References: 1. Expert Panel on Integrated Guidelines for Cardiovascular Health and Risk Reduction in Children and Adolescents. Pediatrics 2011;128:S213 2. NCEP Expert Panel. Circulation 2004;110:227 Current Interpretive Data was last revised on 2018. Testing performed by: [address] [address] Chol/HDL ratio 3 [facility] (DANIEL) Comment:Testing performed by : [address] [address] Blood 12/19/2024 9:41 AM INDUSTRIAL RELATIONS WORKER 12/19/2024 12:38 PM INDUSTRIAL RELATIONS WORKER us Irineo Terrazas MD LAB BLOOD ORDERABLES Steffany swanson Result [facility] ([place]) 1 [facility] Department of Laboratories [place], [place] [id number] * (ABNORMAL) Comprehensive metabolic panel (12/19/2024 9:41 AM INDUSTRIAL RELATIONS WORKER) [facility] Signature Sodium 136 135 - 145 mmol/L Comment:Testing performed by : [address], [place]., [address] Potassium, pl 4.1 3.3 - 4.9 mmol/L [facility] (DANIEL) Comment:Testing performed by : [facility], [address] [place] [address]., [address] Chloride 102 97 - 110 mmol/L [facility] (DANIEL) Comment:Testing performed by : [address] [address] CO2 25 22 - 32 mmol/L [facility] (DANIEL) Comment:Testing performed by : [facility], [address] [place] [address], [address] Anion gap 9 2 - 15 mmol/L [facility] (DANIEL) Comment:Testing performed by : [address], [address] BUN 31(H) 6 - 25 mg/dL [facility] (DANIEL) Comment:Testing performed by : [address], [address] Creatinine 1.50(H) 0.80 - 1.30 mg/dL [facility] (DANIEL) Comment:Testing performed by : [address], [address] Glucose 98 70 - 199 mg/dL [facility] (DANIEL) Comment: Interpretive Data Fasting glucose >/= 126 mg/dl is diagnostic for diabetes. Fasting is defined as no caloric intake for at least 8 hours. Fasting glucose between 100 mg/dl to 125 mg/dl is diagnostic of prediabetes. In a patient with classic symptoms of hyperglycemia or hyperglycemic crisis, a random glucose >/= 200 mg/dl is diagnostic for diabetes. In the absence of unequivocal hyperglycemia, results should be confirmed by repeat testing. The classification and Diagnosis of Diabetes Diabetes Care 202; 46: S19-S40. Current interpretive data was last revised 2022. Testing performed by: [address] [address] Calcium 10.5(H) 8.5 - 10.3 mg/dL [facility] (DANIEL) Comment:Testing performed by : [address], [address] Bilirubin, total 0.5 0.1 - 1.2 mg/dL [facility] (DANIEL) Comment:Testing performed by : [facility], [address] [place] [address]., [address] Protein, pl 7.3 6.5 - 8.5 g/dL [facility] (DANIEL) Comment:Testing performed by : [facility], [address] [place] [address]., [address] Albumin 4.0 3.5 - 5.0 g/dL [facility] (DANIEL) Comment:Testing performed by : [facility], [address] [place] [address]., [address] Alk phos 40 40 - 130 Units/L [facility] (DANIEL) Comment:Testing performed by : [facility], [address] [place] [address], [address] ALT 18 7 - 55 Units/L [facility] (DANIEL) Comment:Testing performed by : [facility], [address] [place] [address], [address] AST 29 10 - 50 Units/L [facility] (DANIEL) Comment:Testing performed by : [address], [address] Blood 12/19/2024 9:41 AM INDUSTRIAL RELATIONS WORKER 12/19/2024 12:38 PM INDUSTRIAL RELATIONS WORKER Irineo Terrazas MD LAB BLOOD ORDERABLES Steffany swanson Result [facility] ([facility]) 1 [facility] Department [place] [address] * PSA screen (10/20/2024 10:12 AM INDUSTRIAL RELATIONS WORKER) PSA-Total 3.06 <=6.20 ng/mL Comment: Interpretive Data AGE SEX REFERENCE INTERVAL 0 minutes-150 years Female None 0 minutes-49 years Male None 50-59 years Male 0-3.90 60-69 years Male 0-5.40 70-79 years Male 0-6.20 80-150 years Male 0-6.20 The Grzegorz PSA Total assay procedure was used. Results from different manufacturers or methods may not be comparable. Serial testing should be performed using the same method. Current interpretive data last revised 22. Testing performed by: [address] [place] [address] Blood 10/20/2024 10:1 2 AM INDUSTRIAL RELATIONS WORKER 10/20/2024 12:39 PM INDUSTRIAL RELATIONS WORKER Irineo Terrazas MD LAB BLOOD ORDERABLES Steffany l Result Performing Organization Address [facility] Co de Phone Number [facility] ([place]) 1 [place] [address] * (ABNORMAL) Albumin Creatinine Ratio, Urine (10/20/2024 10:12 AM INDUSTRIAL RELATIONS WORKER) Albumin Ur 96.2 mg/L Comment: Interpretive Data No reference range established. Current interpretive data was last revised 2019. Testing performed by: [facility], [address] [place] [address]., [address] Creatinine Ur 92.3 mg/dL [facility] ([place]ANIEL) Comment: Interpretive Data No reference range established. Current interpretive data was last revised 2019. Testing performed by: [facility], [address] [place] [address]., [address] Albumin Creatinine Ratio, Ur 104(H) 1 - 29 mg/g [facility] (DANIEL) Comment:Testing performed by : [facility], [address] [place] [address]., [address] Urine 10/20/2024 10:1 2 AM INDUSTRIAL RELATIONS WORKER 10/20/2024 12:39 PM INDUSTRIAL RELATIONS WORKER Irineo Terrazas MD LAB URINE ORDERABLES Steffany l Result Performing Organization Address [facility] Co de Phone Number [facility] ([place]) [address] [place] [address] * (ABNORMAL) Diabetic Eye Exam (04/22/2024) Yoli Castro MD HEALTH MAINTENANCE Final Result * COLONOSCOPY (06/23/2021 9:01 AM CDT) Anatomical Region Laterality Modality Other Narrative Procedure Note Abdirahman Negrete MD - 06/23/2021 9:01 AM CDT Digestive [facility] Patient Name: Andrea Aldana Procedure Date: 06/23/2021 9:01 AM Date of : 1945 Admit Type: Outpatient Age: 76 Gender: Male Attending MD: Abdirahman Negrete M.D. Room: [facility] ENDOSCOPY ROOM 2 Note Status: Finalized Patient Profile: Refer to note in patient chart for documentation of history and physical. Procedure: Colonoscopy Indications: High risk colon cancer surveillance: Personalhistory of colonic polyps, Last colonoscopy: April 2017 Referring MD: Miguel Clark M.D. Providers: Abdirahman Negrete M.D. Impression: - Hemorrhoids found on perianal exam. - Diverticulosis in the sigmoid colon, in the descending colon and at the hepatic flexure. - The examination was otherwise normal. - No specimens collected. Recommendation: - Discharge patient to home. - Resume previous diet. - Continue present medications. - Resume Eliquis (apixaban) at prior dosetomorrow. - Repeat colonoscopy in 5 years for surveillance. - Return to primary care physician as previously scheduled. Medicines: Propofol per Anesthesia Complications: No immediate complications. Estimated Blood Loss: Estimated blood loss: none. Procedure: Pre-Anesthesia Assessment: - This assessment was completed [Time ofAssessment] prior to the administration of sedation. The benefits, risks and alternatives of theprocedure and sedation were discussed and informed consentwas obtained. All questions were answered. Please referto the signed informed consent document in the medical record. The bowel preparation used was Miralax via single dose instruction. The bowel preparation used was bisacodyl tablets via single dose instruction.The scope was passed under direct vision. TheColonoscope [id number] was introduced through the anus and advanced to the the cecum, identified by appendiceal orifice and ileocecal valve. The colonoscopy was performed without difficulty. The patient tolerated the procedure well. The qualityof the bowel preparation was adequate to identifypolyps 6 mm and larger in size. Findings: Hemorrhoids were found on perianal exam. Multiple small and large-mouthed diverticula were found in thesigmoid colon, descending colon and hepatic flexure. The exam was otherwise without abnormality. Electronically signed by Abdirahman Negrete M.D. Abdirahman Negrete M.D. 06/23/2021 10:13:42 AM Number of Addenda: 0 Note Initiated On: 06/23/2021 9:01 AM Procedure Code(s): --- Professional --- G0105, Colorectal cancer screening; colonoscopy on individual at high risk Diagnosis Code(s): --- Professional --- K57.30, Diverticulosis of large intestine without perforation orabscess without bleeding K64.9, Unspecified hemorrhoids Z86.010, Personal history of colonic polyps CPT copyright 2019 [employer]. All rights reserved. The codes documented in this report are preliminary and upon cook room supervisor reviewmay be revised to meet current compliance requirements. Recognized by the [employer] [place] for promoting quality in endoscopy Abdirahman Negrete MD ENDOSCOPY PROCEDURES Final Re sult * DIABETES FOOT EXAM (02/15/2017) Diabetic Foot Exam Unknown us Historical Provider HEALTH MAINTENANCE Final Result from Last 3 Months or Most Recently Relevant to Health Maintenance Insurance MEDICARE [employer] [facility] MEDICARE Address: [place] [id number] MEDICARE [employer] [facility] MEDICARE Address: [place] [id number] MEDICARE [employer] [facility] MEDICARE Address: [address] [address] [place] [address] Advance Directives For more information, please contact: [phone] * Full Code (Latest Code Status on File) Date Activated Date Inactivated Comments 04/18/2024 7:33 PM 04/20/2024 3:22 PM * Full Code Date Activated Date Inactivated Comments 06/23/2021 8:57 AM 06/23/2021 3:09 PM * Full Code Date Activated Date Inactivated Comments 06/23/2021 8:57 AM 06/23/2021 8:57 AM * Full Code Date Activated Date Inactivated Comments 06/25/2018 10:53 AM 06/25/2018 2:46 PM Care Teams Youth Care Professional Relationship Specialty Start Date End Date Irineo Terrazas MD [address] [place] [address] PCP - General Family Medicine 10/06/22 Javier Manuel MD Consulting Physician Cardiovascular Disease 06/25/18 Andrea Candelario, DPM [address] [place] [address] Consulting Physician Orthopedic Surgery 12/22/22 Caio Zaragoza MD [address] [place] [address] [address] [place] [address] Consulting Physician Nephrology 05/13/24 Cinthia Rocha, RN [address] [place] [address] [address] [place] [address] Real Estate Developer 05/19/24
--- OUTSIDE RECORDS SUMMARY | 2025-02-05 13:46 | XMS_ITS | Continuity of Care Document ---
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 Role Phone Janice Dwyer OD Unavailable Unavailable Allergies, Adverse Reactions, Alerts Substance Reaction Status Criticality No Known Allergies Active No Inform ation Medications Medication Instructions Dosage Effective Dates (start - stop) Status Comments TIMOLOL MALEATE 0.5% OPHTH SOLN 5ML INSTILL 1 DROP IN BOTH EYES EVERY DAY - Active amlodipine 10 mg tablet take 1 tablet by oral route every day 10 MG - Active coenzyme Q10 10 mg capsule take 1 capsule by oral route every day 1 capsule - Active rosuvastatin 40 mg tablet take 1 tablet by oral route every day 40 MG - Active nitrofurantoin monohydrate/macrocryst als 100 mg capsule take 1 capsule by oral route every 12 hours with food 100 MG - Active telmisartan 80 mg-hydrochlorothiazide 25 mg tablet take 1 tablet by oral route every day 1.00 tablet - Active aspirin 81 mg tablet,delayed release take 1 tablet by oral route every day 81 MG - Active Eliquis 5 mg tablet take 1 tablet by oral route 2 times every day 5 MG - Active fenofibrate micronized 130 mg capsule take 1 capsule by oral route every day 130 MG - Active fluticasone propionate 50 mcg/actuation nasal spray,suspension inhale 1 spray by intranasal route every day in each nostril 50 MCG - Active tizanidine 2 mg tablet take 1 tablet by oral route every 6 - 8 hours as needed not to exceed 3 doses in 24 hours 2 MG - Active glipizide 5 mg tablet take 1 tablet by oral route 2 times every day before meals 5 MG - Active Lipitor 40 mg tablet take 1 tablet by oral route every day 40 MG - Active terazosin 10 mg capsule take 1 capsule by oral route every day at bedtime 10 MG - Active potassium chloride ER 10 mEq capsule,extended release take 1 capsule by oral route every day with food 10 MEQ - Active lansoprazole 30 mg capsule,delayed release take 1 capsule by oral route every day before a meal 30 MG - Active Procedures Procedure Date Visual Field Examination(s) Fundus Photography W/ Report Office/outpatient Visit, Est SCODI, Posterior Segment Refraction No Charge Optomap Fundus Photos 024 Eye Exam & Treatment After Cataract Laser Surgery No Charge Refraction Office/outpatient Visit, Est No Charge Refraction Office/outpatient Visit, Est Fundus Photography W/ Report Visual Field Examination(s) No Charge Refraction Office/outpatient Visit, Est No Charge [facility] Fundus Photos 023 SCODI, Posterior Segment Eye Exam & Treatment Office/outpatient Visit, Est Fundus Photography W/ Report Visual Field Examination(s) Office/outpatient Visit, Est No Charge [facility] Fundus Photos 022 Eye Exam & Treatment Visual Field Examination(s) Fundus Photography W/ Report Office/outpatient Visit, Est Fundus Photography W/ Report Office/outpatient Visit, Est Fundus Photography W/ Report Office/outpatient Visit, Est Fundus Photography W/ Report Office/outpatient Visit, Est SCODI, Posterior Segment No Charge [facility] Fundus Photos 021 Eye Exam & Treatment Fundus Photography W/ Report Office/outpatient Visit, Est Fundus Photography W/ Report Visual Field Examination(s) Office/outpatient Visit, Est Eye Exam & Treatment Fundus Photography W/ Report Visual Field Examination(s) Office/outpatient Visit, Est No Charge GDX Posterior Segment 019 Refraction Post-op Follow-up Visit No Charge Refraction Post-op Follow-up Visit Post-op Follow-up Visit Remove Cataract, Insert Lens Cyclophotocoag,endoscopic Laser Cataract SX With Toric Lens IOLMaster-Professional No Charge Refraction Post-op Follow-up Visit Post-op Follow-up Visit Post-op Follow-up Visit Remove Cataract, Insert Lens Cyclophotocoag,endoscopic Laser Cataract SX With Toric Lens IOLMaster-Professional No Charge Refraction Office/outpatient Visit, Est Office/outpatient Visit, Est No Charge AScan SCODI, Posterior Segment No Charge Refraction Visual Field Examination(s) No Charge Orbscan Eye Exam & Treatment IOLMaster-Technical Refraction Eye Exam & Treatment Visual Field Examination(s) SCODI, Posterior Segment Office/outpatient Visit, Est Office/outpatient Visit, Est Eye Exam & Treatment Visual Field Examination(s) Office/outpatient Visit, Est SCODI, Posterior Segment Office/outpatient Visit, Est Office/outpatient Visit, Est Visual Field Examination(s) Corneal Pachymetry Eye Exam & Treatment No Charge Refraction SCODI, Posterior Segment Eye Exam & Treatment Office/outpatient Visit, Est Dilated Retinal Exam W Interpretation Ap No Evidence Of Retinopathy In Prior Year Eye Exam & Treatment Dilated Retinal Exam W Interpretation Ja No Evidence Of Retinopathy In Prior Year Communication Performed Advance Directives Directive Yes / No Effective Date File Name Other Directive No N/A N/A WARNING:The information contained in this section is historical and is provided for information only and does not constitute a legal document or any assurance that the information is still accurate. Please verify the information with the forman of the legal document before using it for clinical purposes. Encounters Encounter Description Practice Location Reason(s) For Visit Diagnoses Date Provider Providers Copied on Encounter Office/outpa tient Visit, Est [facility], [address], [place], [place], [address], [place] tel:[phone] SEC Ronnie CHRISTINA Professiona l glaucoma, pressure check (chief complaint) Low-tension glaucoma, bilateral, mild stagePuckeri ng of macula, bilateralPre sence of intraocular lensType 2 diabetes mellitus without complication sDry eye syndrome of bilateral lacrimal glandsDermat ochalasis of right upper eyelidDermat ochalasis of left upper eyelid 4 Yuliya OD Janice. [address], [address], [place], [place], [address], [place]. tel:[phone] Referring Provider: Yvon Contreras MD, [address], [place], [address]. tel:[phone] [facility], [address], [place], [place], [address], [place] tel:[phone] [place] No Information 4 Yuliya OD Janice. [address] [facility], [address], [place], [place], [address], [place]. tel:[phone] [facility], [address] [place] [address] [address], [place], [place], [address], tel:[phone] SEC [place] Professiona l diabetic eye exam (chief complaint) Type 2 diab with mild nonp rtnop without mclr edema, l eyePuckering of macula, bilateralPre sence of intraocular lensLow-tens ion glaucoma, bilateral, mild stageVitreou s degeneration , bilateral 4 Yuliya OD Janice. [address] [place] [address] [address] [facility], [address], [place], [place], [address], [place]. tel:[phone] Referring Provider: Yvon Contreras MD, [address] [place], [address]. tel:[phone] Office/outpa [place]ient Visit, [facility] [place] [facility], [address] [place] [address] [address], [place], [place], [address], tel:[phone] [place] Profession[place] YAG PC (chief complaint) Other secondary cataract, right eye 4 Mershon Zi. [address] [place] [address] [address] [facility], [address], [place], [place], [address], [place]. tel:[phone] Referring Provider: Yvon Contreras MD, [address], [place], [address]. tel:[phone] Office/outpa tient Visit, [facility] [place] [facility], [address] [place] [address] [address], [place], [place], [address], [place] tel:[phone] [place] Professiona l YAG Evaluation (chief complaint) Other secondary cataract, left eye 4 Tanya Zi. [address] [place], [place] [address]cre[address] [facility], [address], [place], [place], [address], [place]. tel:[phone] Referring Provider: Yvon Contreras MD, [address] [facility], [place], [address]. tel:[phone] Office/outpa tient Visit, [facility], [address] [place] [address] [address], [place], [place], [address], [place] tel:[phone] [place] Professiona l glaucoma, pressure check (chief complaint) Presence of intraocular lensOther secondary cataract, bilateralLow -tension glaucoma, bilateral, mild stageType 2 diab with mild nonp rtnop without mclr edema, l eye 3 Yuliya OD Janice. [address] [place] [address], [address], [place], [place], [address], [place]. tel:[phone] Referring Provider: Yvon Contreras MD, [address] [place], [address]. tel:[phone] [facility], [address] [place] [address] [address], [place], [place], [address], tel:[phone] SEC [place] Professiona l diabetic eye exam (chief complaint) Type 2 diabetes mellitus without complication sPresence of intraocular lensLow-tens ion glaucoma, bilateral, mild stagePuckeri ng of macula, bilateral 3 Damon Rader. [address] [facility], [facility] A, [place], [place], [address], [place]. tel:[phone] Referring Provider: Yvon Contreras MD, [address] [place], [address]. tel:[phone] Office/outpa tient Visit, [facility] [place], [address] [place] [address] [address], [place], [place], [address], [place] tel:[phone] SEC [place] Professiona l Pain in eye (chief complaint) Viral conjunctivit is 3 Damon Rader. [address] [facility], [facility] A, [place], [place], [address], [place]. tel:[phone] Referring Provider: Yvon Contreras MD, [address] [facility], [place], [address]. tel:[phone] Office/outpa tient Visit, [facility] [place] [facility], [address] [place] [address] [address], [place], [place], [address], [place] tel:[phone] [place] Professiona l 6 mo IOP check (chief complaint) Low-tension glaucoma, bilateral, mild stage Nov- 2 Damon Rader. [address], [address], [place], [place], [address], [place]. tel:[phone] Referring Provider: Yvon Contreras MD, [address], [place], [address]. tel:[phone] [facility], [address] [place] [address] [address], [place], [place], [address], [place] tel:[phone] [place] Professiona l diabetic eye exam (chief complaint) Low-tension glaucoma, bilateral, mild stageType 2 diabetes mellitus without complication sPresence of intraocular lensDry eye syndrome of left lacrimal gland 2 Damon Rader. [address], [address], [place], [place], [address], [place]. tel:[phone] Referring Provider: Yvon Conrteras MD, [address] [employer], [place], [address]. tel:[phone] Office/outpa tient Visit, [facility] [place], [address] [place] [address] [address], [place], [place], [address], [place] tel:[phone] SEC [place] Professiona l IOP Check (chief complaint) Low-tension glaucoma, bilateral, mild stage Nov- 1 Damon Rader. [address], [address], [place], [place], [address], [place]. tel:[phone] Referring Provider: Yvon Contreras MD, [address], [place], [address]. tel:[phone] Office/outpa tient Visit, [facility], [address] [place] [address] [address], [place], [place], [address], [place] tel:[phone] SEC [place] Professiona l cloudy vision (chief complaint) Type 2 diabetes mellitus without complication sPresence of intraocular lensSuperfic ial punctate keratitis of both eyesVitreous degeneration , bilateralLow -tension glaucoma, bilateral, mild stagePinguec connie, bilateral Aug- 1 Damon Rader. [address] [facility], [address], [place], [place], [address], [place]. tel:[phone] Referring Provider: Yvon Contreras MD, [address] [facility], [place], [address]. tel:[phone] Office/outpa tient Visit, [facility], [address] [place] [address] [address], [place], [place], [address], [place] [phone] SEC Rnonie CHRISTINA Professiona l 1 month PVD f/u (chief complaint) Vitreous degeneration , bilateralLow -tension glaucoma, bilateral, mild stageType 2 diabetes mellitus without complication sPresence of intraocular lens 1 Damon Rader. [address] [facility], [address], [place], [place], [address], [place]. tel:[phone] Referring Provider: Yvon Contreras MD, [address] [facility], [place], [address]. tel:[phone] Office/outpa tient Visit, [facility] [place] [facility], [address] [place] [address] [address], [place], [place], [address], [place] [phone] SEC [place]nie CHRISTINA Professiona l floaters (chief complaint) Low-tension glaucoma, bilateral, mild stageVitreou s degeneration , bilateralTyp e 2 diabetes mellitus without complication s Feb- 1 Damon Rader. [address] [facility], [address], [place], [place], [address], [place]. tel:[phone] Referring Provider: Yvon Contreras MD, [address] [facility], [place], [address]. tel:[phone] [facility], [address] [place] [address] [address], [place], [place], [address], [place] tel:[phone] SEC [place] Professiona l diabetic eye exam (chief complaint) Type 2 diabetes mellitus without complication sLow-tension glaucoma, bilateral, mild stagePunctat e keratitis, bilateralBro w ptosis, bilateralDer matochalasis of both upper eyelidsEyela sh ptosis of both eyes Fe-0 1 Damon Rader. [address] [employer], [address] [place], [place], [address], . tel:[phone] Referring Provider: Yvon Contreras MD, [address] [facility], [place], [address]. tel:[phone] Office/outpa tient Visit, [facility], [address], [place], [place], [address], tel:[phone] SEC [place] Professiona l IOP check (chief complaint) Low-tension glaucoma, bilateral, mild stage Oct-2 0 Damon Rader. [address] [employer], [address] [place], [place], [address], [place]. tel:[phone] Referring Provider: Yvon Contreras MD, [address], [place], [address]. tel:[phone] [facility], [address] [place] [address] [address], [place], [place], [address], [place] [phone] SEC Chanel Donovan [place] No Information Oct-0 0 Damon Rader. [address] [facility], [address], [place], [place], [address], [place]. tel:[phone] Office/outpa tient Visit, [facility], [address], [place], [place], [address], [place] tel:[phone] SEC [place] Professiona l glaucoma, pressure check (chief complaint) Low-tension glaucoma, bilateral, mild stagePtosis of both eyelidsDerma tochalasis of both upper eyelids Felix-3 0 Damon Rader. [address] [facility], [address], [place], [place], [address], [place]. tel:[phone] Referring Provider: Yvon Contreras MD, [address] [employer], [place], [address]. tel:[phone] [facility], [address], [place], [place], [address], [place] tel:[phone] SEC [place] Professiona l diabetic eye exam (chief complaint) Low-tension glaucoma, bilateral, mild stageType 2 diabetes mellitus without complication sPresence of intraocular lensOther secondary cataract, bilateralPun ctate keratitis, bilateralPin guecula, bilateral Sep-2 3-201 9 Damon Rader. [address] [facility], [address], [place], [place], [address], [place]. tel:[phone] Referring Provider: Yvon Contrears MD, [address], [place], [address]. tel:[phone] Office/outpa [place]ient Visit, [facility] [place], [address] [place] [address] [address], [place], [place], [address], [place] tel:[phone] SEC [place] Professiona l 2-3 mo IOP check (chief complaint) Low-tension glaucoma, bilateral, mild stage Mar-2 6-201 9 Damon Rader. [address] [facility], [address], [place], [place], [address], [place]. tel:[phone] Referring Provider: Yvon Contreras MD, [address], [place], [address]. tel:[phone] [facility], [address] [facility] [address], [place], [place], [address], [place] tel:[phone] SEC [place] Professiona l Post-Op (chief complaint) No Information 0-201 9 Marge Pérez. [address] [facility], 6th Floor, [place], [address], [place]. tel:[phone] Referring Provider: Yvon Contreras MD, [address], [place], [address]. tel:[phone] [facility], [address], [place], [place], [address], [place] tel:[phone] SEC [place] Professiona [place] 1 week TORIC IOL w/ECP (chief complaint) No Information Dec-1 8 Damon Rader. [address] [facility], [address] [place], [place], [address], [place]. tel:[phone] Referring Provider: Yvon Contreras MD, [address] [place], [address]. tel:[phone] [facility], [address], [place], [place], [address], [place] [phone] SEC [place] Professiona l Post-Op (chief complaint) No Information Dec-0 6- 8 Marge LISA Beto. [address] [facility], 6th Floor, [place], [address], [place]. tel:[phone] Referring Provider: Yvon Contreras MD, [address] [place], [address]. tel:[phone] [facility], [address], [place], [place], [address], [place] tel:[phone] [facility] No Information Dec-0 8 Damon Rader. [address] [facility], [address], [place], [place], [address], [place]. tel:[phone] Referring Provider: Yvon Contreras MD, [address] [place], [address]. tel:[phone] [facility], [address], [place], [place], [address], [place] [phone] Chanel Johnson No Information Dec-0 8 Damon Rader. [address] [facility], [address], [place], [place], [address], [place]. tel:[phone] Referring Provider: Yvon Contreras MD, [address] [place], [address]. tel:[phone] [facility], [address], [place], [place], [address], tel:[phone] SEC [place] Professiona l Post-Op (chief complaint) No Information 8 Marge OD Beto. [address] [facility], [address] [place] [address], [place], [address], [place]. tel:[phone] Referring Provider: Yvon Contreras MD, [address] [place], [address]. tel:[phone] [facility], [address] [place] [address] [address], [place], [place], [address], [place] tel:[phone] SEC [place] Professiona l 1 week s/p PCIOL w/TORIC Lens/ECP (chief complaint) No Information 0 8 Marge OD Beto. [address] [facility], [address] [place] [address], [place], [address], [place]. tel:[phone] Referring Provider: Yvon Contreras MD, [address] [place], [address]. tel:[phone] [facility], [address] [place] [address] [address], [place], [place], [address], [place] tel:[phone] SEC [place] Professiona l Post-Op (chief complaint) No Information 8 Marge OD Beto. [address] [place] [address], [address] [place] [address], [place], [address], [place]. tel:[phone] Referring Provider: Yvon Contreras MD, [address] [place], [address]. tel:[phone] [facility], [address] [place] [address] [address], [place], [place], [address], [place] tel:[phone] [facility] No Information 3 8 Damon Rader. [address] [facility], [facility] [address], [place], [place], [address], [place]. tel:[phone] Referring Provider: Yvon Contreras MD, [address] [employer], [place], [address]. tel:[phone] [facility], [address] [place] [address] [address], [place], [place], [address], [place] tel:[phone] SEC [facility] No Information Aug-3 0-201 8 Damon Rader. [address] [facility], [address], [place], [place], [address], [place]. tel:[phone] Referring Provider: Yvon Contreras MD, [address] [place], [address]. tel:[phone] Office/outpa [place]ient Visit, [facility] [place], [address] [place] [address] [address], [place], [place], [address], [place] [phone] SEC [place] Professiona l Cataract evaluation (chief complaint) No Information Aug-1 6- 8 Damon Rader. [address] [facility], [address] [place], [place], [address], [place]. tel:[phone] Referring Provider: Yvon Contreras MD, [address], [place], [address]. tel:[phone] Office/outpa [place]ient Visit, [facility], [address] [place] [address] [address], [place], [place], [address], [place] tel:[phone] SEC [place] Professiona l 1 mo IOP check (chief complaint) No Information Jun-2 0- 8 Damon Rader. [address] [facility], [address], [place], [place], [address], [place]. tel:[phone] Referring Provider: Yvon Contreras MD, [address] [facility], [place], [address]. tel:[phone] [facility], [address] [place] [address] [address], [place], [place], [address], [place] tel:[phone] SEC [place] Professiona l Diabetic eye exam (chief complaint) No Information 8 Damon Rader. [address], [address], [place], [address], [place]. tel:[phone] Referring Provider: Bhavin Billings, [address], [place], [address]. tel:[phone] [facility], [address] [place] [address] [address], [place], [place], [address], [place] tel:[phone] SEC [place] Professiona l diabetic eye exam (chief complaint) No Information 7 Rebecanallely Bhatald. [address], [address], [place], [address], [place]. tel:[phone] Referring Provider: Bhavin Billings, [address] [facility] [place], [address]. tel:[phone] Office/outpa tient Visit, [facility], [address], [place], [place], [address], [place] tel:[phone] SEC [place] Professiona l Glaucoma (chief complaint) No Information 6 Guanacoanders Delcid. [address], [address], [place], [address], [place]. tel:[phone] Referring Provider: Bhavin Billings, [address] [place], [address]. tel:[phone] Office/outpa tient Visit, [facility], [address] [place] [address] [address], [place], [place], [address], [place] tel:[phone] SEC [place] Professiona l 6 month IOP check (chief complaint) No Information 6 Guanacoanders Delcid. [address], [address], [place], [address], [place]. tel:[phone] Referring Provider: Bhavin Billings, [address], [place], [address]. [phone] [facility], [address], [place], [place], [address], [phone] SEC [place] Professiona [place] Blurry vision (chief complaint) No Information 6 5 Wankum Bhavin. [address], [address], [place], [address], . tel:[phone] Referring Provider: Bhavin Billings, [address] [facility] [place], [address]. tel:[phone] [facility], [address], [place], [place], [id number], [place] tel:[phone] SEC [place] Professiona l No Information 9 5 Wankum Bhavni. [address], [facility] [place], [address], . tel:[phone] Office/outpa tient Visit, [facility], [address], [place], [place], [address], [place] tel:[phone] SEC [place] Profession[place] Glaucoma, pressure check (chief complaint) No Information [phone] 5 Wankum Bhavin. [address], [address], [place], [address], [place]. tel:[phone] Referring Provider: Bhavin Billings, [address] [place], [address]. [phone] Office/outpa tient Visit, [facility], [address], [place], [place], [address], [place] tel:[phone] SEC [place] Profession[place] Glaucoma, pressure check (chief complaint) No Information 4 Star Delcid. [address], [address], [address], [place]. tel:[phone] Referring Provider: Bhavin Billings, [address], [place], [address]. tel:[phone] Office/outpa tient Visit, [facility], [address], [place], [place], [address], [place] tel:[phone] SEC [place] Profession[place] a comprehensiv e exam (chief complaint) No Information 4 Star Delcid. [address], [address], [address], [place]. tel:[phone] Referring Provider: Bhavin Billings, [address] [place], [address]. tel:[phone] [facility], [address], [place], [place], [address], [place] tel:[phone] SEC [place] Profession[place] a comprehensiv e exam (chief complaint) No Information 3 Star Delcid. [address], [address], [address], [place]. tel:[phone] Referring Provider: Bhavin Billings, [address] [place], [address]. [phone] [facility], [address], [place], [place], [address], [place] tel:[phone] SEC [place] Profession[place] No Information 2 Star Delcid. [address], [address], [address], . tel:[phone] Office/outpa tient Visit, [facility], [address], [place], [place], [address], tel:[phone] SEC Britt CHRISTINA Professiona l No Information 0 Star Delcid. [address] [facility] [place], [place], [address], [place]. tel:[phone] [facility], [address], [place], [place], [address], tel:[phone] SEC [place] Profession[place] No Information 0 Guanacoknallely Delcid. [address], [place], [place], [address], . tel:[phone] Family History Family Member Type Diagnosis Age At Onset Problem (finding) Family history of glauc alicia Problem (finding) Family history of diabetes mellitus type 2 Payers Payer name Insurance type Covered alliance party ID Shadia cruz[facility] [id number] Social History Type Description Quantity Date Captured Comments Alcohol Use Details No Caffeine Use Details No Tobacco Use Status Current non-smoker Smoking Status Never smoker Non-Smoking Tobacco Use Details : No Details Available : No Details Available Sex Male Sexual Orientation Don't Know Gender Identity Male Chief Complaint And Reason For Visit From encounter dated '10/29/2024 08:30'. glaucoma, pressure check (chief complaint). Description: The 79 year old patient presents for a 6 month IOP check. Patient has Low tension glaucoma and is using drop as directed. Patient states his eyes matter through out the day. Reason For Referral Reason For Referral No Information Plan Of Treatment Date Type Action Status Appointment Jeff Aldana BOOKED Patient Education Dry Eyes: Care Instruct ions completed Patient Education Open-Angle Glaucoma: Ca re Instructions completed Patient Education Learning About YAG Lase r Capsulotomy completed Patient Education Open-Angle Glaucoma: Ca re Instructions completed Patient Education Louiee: Care Instructi ons completed Patient Education The Eye: Anatomy Sketch completed Patient Education Type 2 Diabetes: Care I nstructions completed Patient Education Open-Angle Glaucoma: Ca re Instructions completed Patient Education Open-Angle Glaucoma: Ca re Instructions completed Patient Education Learning About Vitreous Detachment completed Patient Education Learning About Vitreous Detachment completed Patient Education Open-Angle Glaucoma: Ca re Instructions completed Patient Education Open-Angle Glaucoma: Ca re Instructions completed Patient Education Open-Angle Glaucoma: Ca re Instructions completed Patient Education Open-Angle Glaucoma: Ca re Instructions completed Patient Education Open-Angle Glaucoma: Ca re Instructions completed Patient Education Open-Angle Glaucoma: Ca re Instructions completed Patient Education Cataract Surgery: Befor e Your Surgery completed History Of Present Illness Encounter Date Complaint History Of Prese nt Illness glaucoma, pressure check The 79 year old patient presents for a 6 month IOP check. Patient has Low tension glaucoma and is using drop as directed. Patient states his eyes matter through out the day. diabetic eye exam The 78 year ol d patient presents for a complete Type II diabetic exam ou. Patient is pseudo ou with Toric IOL and ECP and yag caps ou with OD done 04/01/24. BS was 85 this am and PCP treats DM. Patient states sometimes his eyes are cloudy in the am. Patient uses Timolol qd ou. Patient denies any changes in vision ou and states that the laser helped. YAG PC The 78 year old patient presents for evaluation of YAG PC in the right eye. YAG PC OS was done 01/01/24. Patient states he notices vision is clearer in the left eye after YAG OS. Patient is still having a hard time seeing out of the right eye to drive at night and avoids it. Pt is bothered by glare from oncoming headlights in the right eye, making it more difficult to see. Pt is NIDDM II and is followed by PCP. YAG Evaluation The 78 year old patient presents for evaluation of YAG Evaluation in the right eye and left eye. Pt states that before their last visit they noticed that they were having a hard time reading small print, having a hard time threading a needle, and pt complains of headlights at night bothering them. Pt does take Timolol QAM OU. Pt follows PCP for Diabetes Type II and last Blood Sugar reading was 112. glaucoma, pressure check The 78 year old patient presents for a 6 month IOP check. Patient has Low tension glaucoma and is using Timolol qd ou. Patient is pseudo ou with Toric IOL and ECP ou. Patient would like to get new glasses. Patient is a Type II diabetic and BS was 118 this am. He feels his vision in his left eye is like looking through a dirty window. diabetic eye exam The 77 year ol d patient presents for a complete Type II diabetic exam ou. Patient is pseudo ou with Toric IOLs. Patient has Low Tension glaucoma and uses Timolol qd ou. BS was 110 this and PCP Irineo Terrazas MD treats his DM. Patient denies any changes in vision ou. Pain in eye The 77 year old patient presents for evaluation of Pain in eye in the left eye. Pt. was mowing yesterday. Last night OS started feeling like something was in. Pt. states did try to rinse eye last night and did use his Nicolas OU qam. Pt. states when awoke his OS was matted close Pt. states OS hurting and red. 6 mo IOP check The 77 year old patient presents for evaluation of 6 mo IOP check with VF 24-2 and Optomap in the right eye and left eye. Pt reports he is using Timolol QAM OU, last used it at 7:30 am today, and refills sent per pt request. Pt reports stable VA, OU, DV and NV, since last appt. diabetic eye exam The 76 year ol d patient presents for a complete Type II diabetic exam ou. Patient is pseudo ou with Toric IOLs and ECP. BS was 109 this am and PCP treats DM. last A1C is unknown. Patient has Low tension glaucoma ou and uses Timolol qd ou. Patient denies any changes in vision ou. Patient states every now and then he gets a cloudy spot in vision. IOP Check The 76 year old male presents for evaluation of IOP Check in the right eye and left eye. Hx Low Tension Glaucoma OU, PCIOL OU w/ ECP OU, DM2. Last A1c unknown, BS 119, followed by Dr. Clark. Pt reports stable vision in current spec Rx since last visit. Pt reports still seeing floaters, but denies flashes, dark curtains and trauma OU. Pt reports taking Timolol qAM OU. Refills sent to pharmacy. cloudy vision The 76 year old male presents for evaluation of cloudy vision in the right eye and left eye. Hx of TORIC IOL's w/ECP/LensAR OU, PVD OU, Diab, and Low Tension Glaucoma OU. Patient states over the last month VA has some cloudy spots in both eyes. Patient thinks it due to the floaters his has. Patient using Nicolas qd OU last used @ 7am. BS checked this am @ 123. 1 month PVD f/u The 75 year old male presents for evaluation of 1 month PVD f/u in the right eye and left eye. Hx of Low Tension Glaucoma OU and diab. Patient states he still has the floaters in both eyes and denies any flashes of light. Patient using Nicolas qd OU. floaters The 75 year old male presents for evaluation of floaters in the left eye. Hx of TORIC IOL's w/ECP OU and Low Tension Glaucoma OU. Patient states he started seeing floaters in his left eye about a week ago, denies flashes. Patient states if he looks up to the velia he sees several floaters. BS checked this am @ 142. Patient using Nicolas Maleate 0.5% qd OU last used @ 7am. diabetic eye exam The 75 year ol d male presents for a complete Type II diabetic exam ou. Patient is pseudo ou with ECP and Toric IOLs ou. Patient is using Levobunolol qam ou. Patient states it always seem like his upper eyelashes are in the way. BS was 126 this am. PCP treats DM. Patient has Low Tension glaucoma ou. IOP check The 75 year old male presents for evaluation of IOP check in the right eye and left eye. Hx Low-Tension Glaucoma OU, DM2. BS 142 as of this morning, followed by Dr. Clark. Pt switched from Timolol to Levobunolol due to availability. Pt reports taking Levobunolol qAM OU (7:15am). Pt denies adverse reactions to starting Levobunolol. glaucoma, pressure check The 75 year old male presents for a 10 month IOP check due to Low Tension glaucoma ou. Patient uses Timolol qam ou. Patient is pseudo with ECP and Toric IOLs ou. Patient is a Type II diabetic and BS was 137 this am. Patient states his eyelashes have become bothersome and he thinks they sometimes make his vision blurry. diabetic eye exam The 74 year ol d male presents for a complete Type II diabetic exam ou. Patient is pseudo ou with ECP and Toric IOLs ou. Patient uses Timolol qam ou due to Low Tension glaucoma. BS was 128 this am. Patient denies any changes in vision ou. 2-3 mo IOP check The 73 year old male presents for evaluation of 2-3 mo IOP check with VF 24-2, OCT-ON and Optomap in the right eye and left eye. Pt reports he uses Timolol QAM OU and last used it at 7 am today (REFILLS SENT). (Pt denies any changes in VA, OU, since last appt. Post-Op The 73 year old male presents for a 1 month post op CE with ECP and Toric IOL OS. Patient is finished with sx drops. Patient states OU is doing good. Patient is using Timolol qd ou. 1 week TORIC IOL w/ECP The 73 ye ar old male presents for evaluation of 1 week TORIC IOL w/ECP in the left eye. Patient states VA is good. Patient is using Pred, Ket, and Vig as instructed. Patient also uses Nicolas qd OU last used this am. Post-Op The 73 year old male presents for a 1 day post op CE with Toric IOL and ECP OS. Patient is using Pred and Vigamox tid OS and Ketorolac tid OS. Patient is using Timolol qd ou. Patient c/o pain in OS. Post-Op The 73 year old male presents for a 2 week post op CE with ECP and Toric IOL OD. Patient is using Pred, Vigamox and Ketorolac tid OD and Timolol bid ou. Patient states OD is doing good. Patient wishes to proceed with CE OS because of blurry/decreased vision and notices a difference between eyes. 1 week s/p PCIOL w/TORIC Lens/EC P The 73 year old male presents for evaluation of 1 week s/p PCIOL w/TORIC Lens/ECP in the right eye. Patient states VA is good. Patient using Pred, Vig, Ketorolac, and Nicolas qd OU as directed. Post-Op The 73 year old male presents for a 1 day post op CE with Toric IOL and ECP OD. Patient is using Pred and Vigamox qid OD and Ketorolac. Patient is using Timolol qd ou. Patient denies any pain or discomfort. Cataract evaluation The 73 year old male presents for a cataract evaluation ou (90 day rule). Patient c/o vision is fuzzy ou and c/o cloudy vision ou. Patient is a Type II diabetic and BS was 142 this am. Patient is taking Timolol BID OU 1 mo IOP check The 73 year old male presents for evaluation of 1 mo IOP check in the right eye and left eye. Pt reports she has been using the Timolol BID OU and last used it at 8 am today. Pt denies any changes in VA, OU, since last appt. Pt reports gtts burn a little when he puts them in, but it goes away and no pain, irritation or discomfort today, OU. Diabetic eye exam The 72 year ol d male presents for evaluation of Diabetic eye exam and Glaucoma Suspect exam in the right eye and left eye. Hx of Glaucoma Suspect and Cataracts. Patient states VA is getting fuzzy and cloudy. Avoids driving at night due to glare. Patient is a Type 2 diab x 25 years, Not Insulin dependant, BS checked this am @ 149, and A1C was 6.8. Patient is treated by Dr. Clark for his diab. diabetic eye exam The 71 year ol d male presents for a complete Type II diabetic exam and monitoring IOP due to cupping ou. BS was 165 this am. Patient denies any changes in vision ou but wants new glasses current ones are getting scratched. Glaucoma The 70 year old male presents for a 6 month IOP check due to Cupping ou. Patient doesn't use any drops. Patient denies any changes in vision ou. Patient is a diaetic and states BS runs about 150. 6 month IOP check The 70 year ol d male presents for a 6 month IOP check for OAG in the right eye and left eye. Patient states the left eye may be getting weaker since last visit. Patient is a Type 2 diab [id number], not insulin dep. BS checked this am @ 135. Blurry vision The 69 year old male presents for Complete Exam. HX Cat OU, DM, and Cupping. Pt states his vision is sometimes blurry in the morning. DM BS 125 this AM. No gtt. Glaucoma, pressure check Patient presents for a 6 month IOP check with an OCT. Patient thinks vision OS is a little weaker. Glaucoma, pressure check Patient presents for a 6 month IOP check. Patient is a diabetic and BS was 145 this am. Patient denies any changes in vision. Functional Status Date Functional Assessmen t No Information Instructions Date Instruction Additional Infor william Impression/Plan Impression/Plan Impression/Plan Related to Other secondary cataract, right eye Impression/Plan Impression/Plan Impression/Plan Impression/Plan Impression/Plan Impression/Plan Impression/Plan Impression/Plan Impression/Plan Impression/Plan Impression/Plan Impression/Plan Impression/Plan Impression/Plan Impression/Plan 2-3 month HVF 24-2 SS and OCT ON H OU Related to Encounter for examination following surgery Impression/Plan Related to Encou nter for examination following surgery Impression/Plan 1 week or sooner PRN Related to Encounter for examination following surgery Impression/Plan Related to Encou nter for examination following surgery 2 week or sooner PRN Related to Encounter for examination following surgery Impression/Plan Related to Encou nter for examination following surgery 1 week or sooner prn Related to Encounter for examination following surgery Impression/Plan Related to Encou nter for examination following surgery 1 week or sooner PRN Related to Encounter for examination following surgery Impression/Plan Related to Encou nter for examination following surgery Impression/Plan Educational material given Relat ed to Low-tension glaucoma, bilateral, mild stage Impression/Plan Impression/Plan Educational material given Relat ed to Age-related nuclear cataract, bilateral Follow up - 6-8 dean hs for complete exam with IOP check, OCT ON and 24-2 visual anthony Impression/Plan - Di scussed diagnosis in detail with patient. Pt aware cataracts not ready for CE at this time, will continue to monitor. Normal IOP with Optic Disc cupping OU. Diabetes type II: no background retinopathy, no signs of neovascularization noted. Discussed ocular and systemic benefits of blood sugar control. DM letter sent to Dr Clark. Return to clinic in 6-8 months for iOP check with OCT ON and 24-2 visual anthony or sooner with any problems. Age-related nuclear cataract, right eye - Educational material given Related to Age-related nuclear cataract, right eye Follow up - Return i n 1 year with Bhavin Graves M.D. for Complete Exam. Impression/Plan - Di scussed diagnosis in detail with patient. Discussed cataracts with pt and treatment options. pt also understands at this time vision does not qualify to have CE with insurance coverage. IOP within normal range, normal OCT ON and normal visual anthony OU. Will continue to monitor. Diabetes type II: no background retinopathy, no signs of neovascularization noted. Discussed ocular and systemic benefits of blood sugar control. DM letter sent to Dr Clark. Return to clinic in 1 year for complete diabetic exam or sooner with any problems. Glaucoma suspect of both eyes - Educational material provided Related to Glaucoma suspect of both eyes Follow up - Return i n 6 months with Bhavin Graves M.D. for IOP check , Visual Field (24-2) , OCT (ON). Impression/Plan - IO P normal range, will continue to monitor. Diabetes type II: no background retinopathy, no signs of neovascularization noted. Discussed ocular and systemic benefits of blood sugar control. DM letter sent to Dr Clark. Discussed cataracts with pt and treatment options. pt also understands at this time vision does not qualify to have CE with insurance coverage. information given to pt for review, and instructed to return sooner if vision worsens. Return to clinic in 6 months for IOP check, 24-2 visual anthony, and OCT ON or sooner with any problems. - Return in 6 months with Bhavin Graves M.D. for IOP check or OCT ON. Related to See list of assessments above - Dabetes no backgro und retinopathy, no signs of neovascularization noted. Discussed ocular and systemic benefits of blood sugar control. Cataracts discussed no treatment currently recommended. The patient will monitor vision changes and contact us with any decrease in vision. No change in visual anthony, will continue to monitor. DM letter to Dr Clark. Return to clinic in 6 months for IOP check with OCT ON or sooner with any problems. Related to See list of assessments above SENILE NUCLEAR CATAR ACT - Educational material given Related to SENILE NUCLEAR CATARACT - Return in 6 months with Bhavin Graves M.D. for Complete Exam Related to See list of assessments above - IOP stable, will c ontinue to monitor. Discussed cataracts no treatment currently recommended. The patient will monitor vision changes and contact us with any decrease in vision. Return in 6 months for complete exam or sooner with any problems. Related to See list of assessments above - RTC in 6 months fo r IOP check and OCT ON Related to See list of assessments above - Diabetes: no backg round retinopathy. Discussed ocular and systemic benefits of blood sugar control. Cataracts discussed with pt. No treatment for cataracts currently recommended. The patient will monitor vision changes and contact us with any decrease in vision. RTC in 6 months for IOP check and OCT ON. Educational materials provided:about today's exam. Related to See list of assessments above - RTC in 6 months for IOP and di late Related to See impression: general plan General plan -DMII O PHTH NT ST UNCNTRL -OPN ANGL W BORDERLN FIND Low Risk -SENILE NUCLEAR CATARACT - Intraocular pressure stable - No treatment required for glaucoma at this time. Reviewed VF - stable. RTC in 6 months for IOP check and dilate. Educational materials provided:about today's exam. Related to See impression: general plan General plan -DMII O PHTH NT ST UNCNTRL -OPN ANGL W BORDERLN FIND Low Risk -SENILE NUCLEAR CATARACT - Discussed cataracts diagnosis in detail with pt. No treatment required for cataracts at this time. No diabetic changes Educational materials provided:about today's exam. RTC in 1 month for VF and Pachs. 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
--- OUTSIDE RECORDS SUMMARY | 2025-02-05 13:46 | XMS_ITS | Encounter Summary ---
Author Organization [facility] Address [address] [place] [address] Phone Care Team Providers Care Nonprofit Director Name Role Phone Miguel Clark MD Primary Care Provi severo Javier Manuel MD Unavailable [phone] [place] Primary Care Provider Irineo Terrazas MD Primary Care Provider [phone] Jeff Candelario DPM Unavailable [phone] Caio Zaragoza MD Unavailable [phone] Cinthia Rocha RN Unavailable [phone] Christina Tubbs CDE Unavailable [phone] Encounter Details Date Type Department Care Team (Late st Contact Info) Description 11/20/2017 Orders Only [facility] ProviderYoli MD [address] [place] [id number] Social History Tobacco Use Types Packs/Day Years Used Date Smoking Tobacco: Never Smokeless Tobacco: Never Alcohol Use Standard Drinks/Week Comments No 0 (1 standard drink = 0.6 oz pur e alcohol) Sex and Gender Information Value Date Recorded Sex Assigned at Not on file Legal Sex Male 11:52 PM ARTIST'S MODEL Gender Identity Not on file Sexual Orientation Not on file documented as of this encounter Plan of Treatment Not on file documented as of this encounter Procedures Procedure Name Priority Date/Time Associated Diagnosis Comments DISCHARGE LABORATORY CUMULATIVE REPORT 11/20/2017 12:00 AM ARTIST'S MODEL documented in this encounter Results * DISCHARGE LABORATORY CUMULATIVE REPORT (11/20/2017 12:00 AM ARTIST'S MODEL) Narrative 11/20/2017 12:00 AM ARTIST'S MODEL Ordered by an unspecified provider. us Historical Provider LAB BLOOD ORDERABLES Steffany l Result documented in this encounter Visit Diagnoses Not on filedocumented in this encounter Additional Health Concerns Infection Onset Date Last Indicated Resolved Time C. difficile suspected 04/18/2024 04/18/202404/20 1:50 PM CDT documented as of this encounter Care Teams Nonprofit Director Relationship Specialty Start Date End Date Miguel Clark MD PCP - General 02/23/17 07/26/22 Chino [place] PA [address] [place] [address] [address] [facility] [place] [address] PCP - General Internal Medicine 07/27/22 10/05/22 Irineo Terrazas MD [address] [place] [address] PCP - General Family Medicine 10/06/22 Javier Manuel MD Consulting Physician Cardiovascular Disease 06/25/18 Jeff Candelario, DPM [address] [place] [address] Consulting Physician Orthopedic Surgery 12/22/22 Caio Zaragoza MD [address] [place] [address] [address] [facility] [place] [address] Consulting Physician Nephrology 05/13/24 Cinthia Rocha, RN [address] [facility] [facility] [address] [place] [address] High Lift Driver 05/19/24 Christina Tubbs CDE [address] [facility] [address] [place] [address] Diversity Specialist 05/19/24 05/25/24 documented as of this encounter
--- OUTSIDE RECORDS SUMMARY | 2025-02-05 13:46 | XMS_ITS | Clinical Summary ---
Author Organization [facility] Address [address] [place] [id number] Care Team Providers Care Cutter Operator Name Role Phone Javier Manuel MD Primary Care Provider [phone] Allergies No known active allergies Medications amiodarone (PACERONE) 200 MG tablet Take 200 mg by mouth 1 (one) time each day Active apixaban (Eliquis) 5 MG tablet Take 5 mg by mouth in the morning and 5 mg in the evening. Active aspirin (ST FARZANA) 81 MG EC tablet Take 81 mg by mouth 1 (one) time each day Active fenofibrate micronized (LOFIBRA) 134 MG capsule Take 134 mg by mouth 1 (one) time each day before breakfast Active ferrous sulfate 325 (65 Fe) MG tablet Take 325 mg by mouth 1 (one) time each day with breakfast Active gabapentin (NEURONTIN) 100 MG capsule Take 100 mg by mouth in the morning and 100 mg in the evening and 100 mg before bedtime. Active glipiZIDE (GLUCOTROL) 5 MG tablet Take 5 mg by mouth in the morning and 5 mg in the evening. Take before meals. Active metoprolol succinate XL (TOPROL XL) 50 MG 24 hr tablet Take 25 mg by mouth 1 (one) time each day Do not crush or chew. Active Mirabegron ER (Myrbetriq) 25 MG tablet sustained-relea se 24 hour Take 25 mg by mouth 1 (one) time each day Active rosuvastatin (CRESTOR) 20 MG tablet Take 20 mg by mouth 1 (one) time each day Active terazosin (HYTRIN) 10 MG capsule Take 10 mg by mouth every night Active hydrALAZINE 25 MG tablet Take 25 mg by mouth in the morning and 25 mg in the evening and 25 mg before bedtime. Active isosorbide dinitrate (ISORDIL) 10 MG tablet Take 10 mg by mouth in the morning and 10 mg in the evening. Active timolol (TIMOPTIC-XR) 0.5 % ophthalmic gel-forming 1 drop 1 (one) time each day Active furosemide (LASIX) 20 MG tablet Take 20 mg by mouth 1 (one) time each day Active Active Problems No known active problems Encounters Date Type Department Care Team Description 01/22/2025 Documentation Only [facility] [address] [facility] [address] [place] [address] Caio Zaragoza MD from Last 3 Months Family History Medical History Relation Comments Hypertension Father Colon cancer Father's Brother Throat cancer Mother Relation Status Comments Father Father's Brother Mother Social History Tobacco Use Types Packs/Day Years Used Date Smoking Tobacco: Never Smokeless Tobacco: Never Tobacco Cessation:Counseling Given: Not Answered Alcohol Use Standard Drinks/Week Comments Not Currently 0 (1 standard drink = 0.6 oz pur e alcohol) Sex and Gender Information Value Date Recorded Sex Assigned at Not on file Legal Sex Male 9:01 AM EDT Gender Identity Not on file Sexual Orientation Not on file Last Filed Vital Signs Vital Sign Reading Time Taken Comments Blood Pressure 142/75 09/02/2024 12:35 PM CDT Pulse 76 09/02/2024 12:35 PM CDT Temperature 36.7 C (98 F) 09/02/2024 12:35 PM CDT Respiratory Rate - - Oxygen Saturation 96% 09/02/2024 12:35 PM CDT Inhaled Oxygen Concentration - - Weight 94.8 kg (209 lb) 09/02/2024 12:35 PM CDT Height 175.3 cm (5' 9 ) 09/02/2024 12:35 PM CDT Body Mass Index 30.86 09/02/2024 12:35 PM CDT Plan of Treatment Health Maintenance Due Date Last Done Comments Diabetes: Pedal Pulse Checked 05/15/2024 Diabetes: Sensory Foot Exam 05/15/2024 Diabetes: Visual Foot Exam 05/15/2024 Diabetes: Hemoglobin A1C 03/19/2025 025, 10/20/2024, 04/10/2024 Diabetes: Ophthalmology Exam 04/22/2025 04/22/2024 Pneumococcal Vaccine: 65+ Years Completed 07/31/2018, 01/25/2015, 12/01/2009 Influenza Vaccine Completed 10/20/2024, , 08/27/2020, Additional history exists Hepatitis B Vaccine Aged Out No longe r eligible based on patient's age to complete this topic Insurance [id number] MEDIC[facility] Care Teams Cutter Operator Relationship Specialty Start Date End Date Javier Manuel MD [address] [place] [address] [address] [place] [id number] PCP - General Cardiology 05/14/24
--- OUTSIDE RECORDS SUMMARY | 2025-02-05 13:46 | XMS_ITS | Clinical Summary ---
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 you moved where you were living? 1 06/10/2024 At any time in the past 12 m [facility], were you homeless or living in a long-term (including now)? No 06/10/2024 Personal Safety Answer Date Recorded Have you ever been in or are you currently in a harmful physical or emotional relationship or is someone making you feel afraid or unsafe? Denies 06/09/2024 Sex and Gender Information Value Date Recorded Sex Assigned at Not on file Legal Sex Male 11:52 PM GRANT ADMINISTRATOR Gender Identity Not on file Sexual Orientation Not on file Obstetrics History Last Filed Vital Signs Vital Sign Reading Time Taken Comments Blood Pressure 142/64 01/26/2025 9:11 AM GRANT ADMINISTRATOR Pulse 61 01/26/2025 9:11 AM GRANT ADMINISTRATOR Temperature 36.4 C (97.5 F) 01/26/2025 9:11 AM GRANT ADMINISTRATOR Respiratory Rate 18 01/26/2025 9:11 AM GRANT ADMINISTRATOR Oxygen Saturation 97% 01/26/2025 9:11 AM GRANT ADMINISTRATOR Inhaled Oxygen Concentration - - Weight 96.6 kg (213 lb) 01/26/2025 9:11 AM GRANT ADMINISTRATOR Height 175.3 cm (5' 9.02 ) 01/26/2025 9:11 AM CS T Body Mass Index 31.44 01/26/2025 9:11 AM GRANT ADMINISTRATOR Plan of Treatment Health Maintenance Due Date Last Done Comments Hepatitis B Screening 1963 Zoster Vaccine (1 of 2) 1994 DTaP/Tdap/Td Vaccine (1 - Tdap) 12/02/2009 0 Foot Exam 03/30/2023 03/30/2022, 0 01/2022, 02/03/2021, Additional history exists Covid-19 Vaccine (5 - 2023-2 5 season) 2024 09/26/2022, 08/25/2021, 02/04/2021, Additional history exists Dilated Eye Exam 04/22/2025 04/22/2024, , 04/17/2023, Additional history exists Well Visit 65+ 05/15/2025 05/15/2024, 0 01/2022, 09/01/2020, Additional history exists Hemoglobin A1C 06/18/2025 12/19/2024, 09/27, 04/10/2024, Additional history exists Depression Screening 07/25/2025 07/25/2024, 2024, 05/15/2024, Additional history exists Fall Risk Assessment 07/25/2025 07/25/2024, 2024, 05/15/2024, Additional history exists Albumin Creatinine Ratio, Urine 10/20/2025 10/20/2024, 09/17/2023, 03/27/2023, Additional history exists Prostate Cancer Screening-PSA 10/20/2025, 09/17/2023, 03/27/2023, Additional history exists Lipid Panel 12/19/2025 12/19/2024, 09/27, 04/10/2024, Additional history exists eGFR 01/22/2026 01/22/2025, 12/27, 12/19/2024, Additional history exists Colon Cancer Screening-Colonoscopy 06/23/2026 06/23/2021, 05/14/2017, 06/10/2013, Additional history exists Pneumococcal vaccine 65+ Completed 018, 01/25/2015, 01/25/2015, Additional history exists Influenza Vaccine Completed 10/20/2024, , 08/26/2022, Additional history exists Goals Goal Patient Goal Type Associated Problems [...] or provider. Medical Devices Implanted Type Area Wedding Decorator Device Identifier Shelf Expiration Date Model / Serial / Lot Cardiac Stents Heart The Filter [employer] Surgisis Set Plug Button .4 Cm Graft Soft Tissue Porcine Small Intestine Submucosa Sterile Anal Rectovaginal Fistula [id number] - [id number] Implanted:Qty: 1 on 05/25/2022 by Lonnie Bill MD at [facility] N/A: Rectum [employer] 07/20/2022 [id number] / / [id number] Procedures Procedure Name Priority Date/Time Associated Diagnosis Comments URINALYSIS, MICROSCOPIC ONLY Routine 01/26/2025 9:58 AM GRANT ADMINISTRATOR URINE CULTURE Routine 01/26/2025 9:58 AM GRANT ADMINISTRATOR URINALYSIS AND REFLEX TO MICROSCOPIC AND CULTURE Routine 01/26/2025 9:58 AM GRANT ADMINISTRATOR EGFR Routine 01/22/2025 8:59 AM GRANT ADMINISTRATOR DIFFERENTIAL AUTO Routine 01/22/2025 8:5 9 AM GRANT ADMINISTRATOR IRON PROFILE W/ IBC Routine 01/22/2025 8 :59 AM GRANT ADMINISTRATOR PTH Routine 01/22/2025 8:59 AM GRANT ADMINISTRATOR RENAL FUNCTION PANEL Routine 01/22/2025 8:59 AM GRANT ADMINISTRATOR CBC WITH AUTO DIFFERENTIAL Routine 01/22/2025 8:59 AM GRANT ADMINISTRATOR EGFR Routine 01/07/2025 9:47 AM GRANT ADMINISTRATOR DIFFERENTIAL AUTO Routine 01/07/2025 9:4 7 AM GRANT ADMINISTRATOR IRON PROFILE W/ IBC Routine 01/07/2025 9 :47 AM GRANT ADMINISTRATOR PTH Routine 01/07/2025 9:47 AM GRANT ADMINISTRATOR RENAL FUNCTION PANEL Routine 01/07/2025 9:47 AM GRANT ADMINISTRATOR CBC WITH AUTO DIFFERENTIAL Routine 01/07/2025 9:47 AM GRANT ADMINISTRATOR URINALYSIS, MICROSCOPIC ONLY Routine 12/26/2024 4:37 PM GRANT ADMINISTRATOR Dysuria URINE CULTURE Routine 12/26/2024 4:37 PM GRANT ADMINISTRATOR URINALYSIS AND REFLEX TO MICROSCOPIC AND CULTURE Routine 12/26/2024 4:37 PM GRANT ADMINISTRATOR Dysuria EGFR Routine 12/19/2024 9:41 AM GRANT ADMINISTRATOR Controlled type 2 diabetes mellitus with complication, without long-term current use of insulin (HCC) COMPREHENSIVE METABOLIC PANEL Routine 12/19/2024 9:41 AM GRANT ADMINISTRATOR Controlled type 2 diabetes mellitus with complication, without long-term current use of insulin (HCC) HEMOGLOBIN A1C Routine 12/19/2024 9:41 AM GRANT ADMINISTRATOR Controlled type 2 diabetes mellitus with complication, without long-term current use of insulin (HCC) LIPID PANEL Routine 12/19/2024 9:41 AM GRANT ADMINISTRATOR Controlled type 2 diabetes mellitus with complication, without long-term current use of insulin (HCC) ALBUMIN CREATININE RATIO, URINE Routine 10/20/2024 10:12 AM GRANT ADMINISTRATOR Controlled type 2 diabetes mellitus with stage 3 chronic kidney disease, with long-term current use of insulin (HCC) PSA SCREEN Routine 10/20/2024 10:12 AM GRANT ADMINISTRATOR Benign prostatic hyperplasia with urinary frequency DIABETIC EYE EXAM Routine 04/22/2024 COLONOSCOPY 06/23/2021 9:01 AM CDT DIABETES FOOT EXAM Routine 02/15/2017 from Last 3 Months or Most Recently Relevant to Health Maintenance Results * (ABNORMAL) Urinalysis reflex to microscopic and culture Urine (01/26/2025 9:58 AM GRANT ADMINISTRATOR) Color, ur Yellow Yellow Clarity, ur Turbid(A) [...] tendency for uric acid stone formation. Source: [employer] Current Interpretive Data was last revised on [...] UA will be performed. CERNER CH Urine 01/26/2025 9:58 AM GRANT ADMINISTRATOR 01/26/2025 2:11 PM GRANT ADMINISTRATOR Irineo Terrazas MD LAB MICROBIOLOGY - GENERA L ORDERABLES Final Result Performing Organization Address [facility] Co de Phone Number OMAR [place]ES [phone] [address] Department [place] [address] * (ABNORMAL) Urinalysis, microscopic only (01/26/2025 9:58 AM GRANT ADMINISTRATOR) WBC, ur >50(A) 0 - 5 /HPF RBC, ur >50(A) 0 - 2 /HPF CERNER Bacteria, ur 1+(A) CERNER CH Mucous, ur Present(A) CERNER CH Culture Reflex Comment Reflex to urine culture will be performed. CERNER Urine 01/26/2025 9:58 AM GRANT ADMINISTRATOR 01/26/2025 2:24 PM GRANT ADMINISTRATOR Irineo Terrazas MD LAB URINE ORDERABLES Steffany l Result Performing Organization Address [facility] Co de Phone Number OMAR [place] [address] [address] Department of [facility] [place], [place] [id number] * (ABNORMAL) Urine culture Urine (01/26/2025 9:58 AM GRANT ADMINISTRATOR) Report Final Report: Greater than or equal to 100,000 colonies/mL of Escherichia coli (.) Comment:Testing performed by : [facility], [address] [facility], [place]., [address] Organism ESCHERICHIA COLI [facility] Urine 01/26/2025 9:58 AM GRANT ADMINISTRATOR 01/26/2025 4:55 PM GRANT ADMINISTRATOR Narrative OMAR AVILES - 01/28/2025 10:02 AM GRANT ADMINISTRATOR Urine culture reflexed based upon urinalysis results. Testing performed by [facility] ([phone]) Organism Antibiotic Method Susceptibility Escherichia coli Ampicillin [...] - GENERA L ORDERABLES Final Result OMAR [address] Department [place] [address] * (ABNORMAL) eGFR (01/22/2025 8:59 AM GRANT ADMINISTRATOR) eGFR 48(L) >=60 mL/min/1. 73 m2 Comment: [...] of Race in Diagnosing Kidney Disease, JASN 202). The CKD-EPI equation should not be used for patients with unstable renal function and has not been validated in children and those over 70. Current interpretive data was last reviewed 2021. Testing performed by: [facility], [address] [place] [address], [place]., [address] Blood 01/22/2025 8:59 AM GRANT ADMINISTRATOR 01/22/2025 1:05 PM GRANT ADMINISTRATOR us Caio Zaragoza MD LAB BLOOD ORDERABLES Final Re sult [facility] (DANIEL) 1 [facility] Department [place] [address] * Differential, auto (01/22/2025 8:59 AM GRANT ADMINISTRATOR) Neutrophil abs 3.7 1.5 - 6.5 K/cumm Comment:Testing performed by : [facility], [address] [place] [address]., [address] Imm gran abs 0.0 0.0 - 0.1 K/cumm [facility] (DANIEL) Comment:Testing performed by : [facility], [address] [place] [address]., [address] Lymphocyte abs 0.8 0.8 - 3.3 K/cumm [facility] (DANIEL) Comment:Testing performed by : [facility], [address] [place] [address]., [address] Monocyte abs 0.5 0.2 - 0.8 K/cumm [facility] (DANIEL) Comment:Testing performed by : [facility], [address] [place] [address]., [address] Eosinophil abs 0.1 0.0 - 0.5 K/cumm [facility] (DANIEL) Comment:Testing performed by : [address] [address] Basophil abs 0.0 0.0 - 0.1 K/cumm [facility] (DANIEL) Comment:Testing performed by : [address] [address] Neutrophil pct 71.7 % [facility] (DANIEL) Comment: Interpretive Data Percent cell count reference ranges are not reported, since discordance with absolute values may lead to misinterpretation of CBC data. Current Interpretive Data was last revised on 2018. Testing performed by: [address] [address] Imm gran pct 0.4 % [facility] (DANIEL) Comment: Interpretive Data Percent cell count reference ranges are not reported, since discordance with absolute values may lead to misinterpretation of CBC data. Current Interpretive Data was last revised on 2018. Testing performed by: [facility], [address] [place] [address]., [address] Lymphocyte pct 15.7 % [facility] R [facility] (DANIEL) Comment: Interpretive Data Percent cell count reference ranges are not reported, since discordance with absolute values may lead to misinterpretation of CBC data. Current Interpretive Data was last revised on 2018. Testing performed by: [facility], [address] [place] [address]., [address] Monocyte pct 9.3 % [facility] (DANIEL) Comment: Interpretive Data Percent cell count reference ranges are not reported, since discordance with absolute values may lead to misinterpretation of CBC data. Current Interpretive Data was last revised on 2018. Testing performed by: [facility], [address] [place] [address]., [address] Eosinophil pct 2.5 % [facility] R [facility] (DANIEL) Comment: Interpretive Data Percent cell count reference ranges are not reported, since discordance with absolute values may lead to misinterpretation of CBC data. Current Interpretive Data was last revised on 2018. Testing performed by: [facility], [address] [place] [address]., [address] Basophil pct 0.4 % [facility] (DANIEL) Comment: Interpretive Data Percent cell count reference ranges are not reported, since discordance with absolute values may lead to misinterpretation of CBC data. Current Interpretive Data was last revised on 2018. Testing performed by: [address] [address] Blood 01/22/2025 8:59 AM GRANT ADMINISTRATOR 01/22/2025 8:59 AM GRANT ADMINISTRATOR us Caio Zaragoza MD LAB BLOOD ORDERABLES Final Re sult OMAR [facility] (DANIEL) 1 [facility] Department [place] [address] * (ABNORMAL) Iron profile w/ IBC (01/22/2025 8:59 AM GRANT ADMINISTRATOR) Iron 54 50 - 150 mcg/dl Comment:Testing performed by : [facility], [address] [place] [address], [address] TIBC 302 250 - 400 mcg/dL [facility] (DANIEL) Comment:Testing performed by : [facility], [address] [place] [address], [address] Transferrin saturation 18(L) 20 - 50 % [facility] (DANIEL) Comment:Testing performed by : [facility], [address] [place] [address], [address] Blood 01/22/2025 8:59 AM GRANT ADMINISTRATOR 01/22/2025 8:59 AM GRANT ADMINISTRATOR us Caio Zaragoza MD LAB BLOOD ORDERABLES Final Re sult [facility] (DANIEL) 1 [facility] Department [place] [address] * (ABNORMAL) CBC with auto differential (01/22/2025 8:59 AM GRANT ADMINISTRATOR) [facility] WBC 5.2 3.8 - 9.9 K/cumm Comment:Testing performed by : [address], [address] Hgb 10.2(L) 13.0 - 17.5 g/dL [facility] (DANIEL) Comment:Testing performed by : [address], [address] Hct 32.5(L) 38.9 - 50.3 % [facility] (DANIEL) Comment:Testing performed by : [address], [address] Plt 127(L) 150 - 400 K/cumm [facility] (DANIEL) Comment:Testing performed by : [address], [address] MPV 12.0 9.1 - 12.3 fL [facility] (DANIEL) Comment:Testing performed by : [address], [address] RBC 3.44(L) 4.30 - 5.80 M/cumm [facility] (DANIEL) Comment:Testing performed by : [facility], [address] [place] [address], [address] MCV 94.5 81.3 - 96.4 fL [facility] (DANIEL) Comment:Testing performed by : [address], [address] MCH 29.7 27.1 - 33.3 pg [facility] (DAINEL) Comment:Testing performed by : [address], [address] MCHC 31.4(L) 32.3 - 35.7 g/dL [facility] (DANIEL) Comment:Testing performed by : [facility], [address] [place] [address], [address] RDW CV 14.7 11.1 - 14.9 % [facility] (DANIEL) Comment:Testing performed by : [address], [address] RDW SD 50.5(H) 35.7 - 48.1 fL [facility] (DANIEL) Comment:Testing performed by : [address], [address] NRBC abs 0.00 0.00 - 0.01 K/cumm [facility] (DANIEL) Comment:Testing performed by : [address], [address] Blood 01/22/2025 8:59 AM GRANT ADMINISTRATOR 01/22/2025 8:59 AM GRANT ADMINISTRATOR Caio Zaragoza MD LAB BLOOD ORDERABLES Final Re sult [facility] (DANIEL) 1 [facility] Department [place] [address] * (ABNORMAL) PTH (01/22/2025 8:59 AM GRANT ADMINISTRATOR) PTH 68(H) 15 - 65 pg/mL Comment:Testing performed by : [address], [address] Blood 01/22/2025 8:59 AM GRANT ADMINISTRATOR 01/22/2025 9:00 AM GRANT ADMINISTRATOR us Caio Zaragoza MD LAB BLOOD ORDERABLES Final Re sult OMAR AGUILAR (FREDONIA) 1 [facility] Department [place] [address] * (ABNORMAL) Renal function panel (01/22/2025 8:59 AM GRANT ADMINISTRATOR) Sodium 140 135 - 145 mmol/L Comment:Testing performed by : [facility], [address] [place] [address]., [address] Potassium, pl 4.2 3.3 - 4.9 mmol/L O[facility] (DANIEL) Comment:Testing performed by : [facility], [address] [place] [address], [address] Chloride 105 97 - 110 mmol/L [facility] ([facility] Comment:Testing performed by : [facility], [address] [place] [address], [address] CO2 25 22 - 32 mmol/L [facility] (DANIEL) Comment:Testing performed by : [facility], [address] [place] [address], [address] Anion gap 10 2 - 15 mmol/L [facility] (DANIEL) Comment:Testing performed by : [address], [address] BUN 31(H) 6 - 25 mg/dL [facility] (DANIEL) Comment:Testing performed by : [address], [address] Creatinine 1.48(H) 0.80 - 1.30 mg/dL [facility] (DANIEL) Comment:Testing performed by : [address], [address] Glucose 127 70 - 199 mg/dL [facility] (DANIEL) Comment: Interpretive Data Fasting glucose [...] was last revised 2022. Testing performed by: [facility], [address] [place] [address]., [address] Calcium 10.4(H) 8.5 - 10.3 mg/dL O[facility] (DANIEL) Comment:Testing performed by : [facility], [address] [place] [address]., [address] Phosphorus, pl 2.7 2.3 - 4.5 mg/dL [facility] (DANIEL) Comment:Testing performed by : [facility], [address] [place] [address]., [address] Albumin 3.9 3.5 - 5.0 g/dL [facility] (DANIEL) Comment:Testing performed by : [facility], [address] [place] [address], [address] Blood 01/22/2025 8:59 AM GRANT ADMINISTRATOR 01/22/2025 8:59 AM GRANT ADMINISTRATOR Caio Zaragoza MD LAB BLOOD ORDERABLES Final Re sult OMAR [facility] (FREDONIA) 1 [facility] Department of Laboratories [place], [place] [id number] * (ABNORMAL) eGFR (01/07/2025 9:47 AM GRANT ADMINISTRATOR) eGFR 46(L) >=60 mL/min/1. 73 m2 Comment: [...] was last reviewed 2021. Testing performed by: [facility], [address] [place] [address]., [address] Blood 01/07/2025 9:47 AM GRANT ADMINISTRATOR 01/07/2025 1:16 PM GRANT ADMINISTRATOR Caio Zaragoza MD LAB BLOOD ORDERABLES Final Re sult [facility] (DANIEL) 1 [facility] Department [place] [address] * Differential, auto (01/07/2025 9:47 AM GRANT ADMINISTRATOR) Neutrophil abs 1.8 1.5 - 6.5 K/cumm Comment:Testing performed by : [address] [address] Imm gran abs 0.0 0.0 - 0.1 K/cumm [facility] (DANIEL) Comment:Testing performed by : [address] [address] Lymphocyte abs 0.9 0.8 - 3.3 K/cumm [facility] (DANIEL) Comment:Testing performed by : [facility], [address] [place] [address]., [address] Monocyte abs 0.3 0.2 - 0.8 K/cumm [facility] (DANIEL) Comment:Testing performed by : [address] [address] Eosinophil abs 0.1 0.0 - 0.5 K/cumm [facility] (DANIEL) Comment:Testing performed by : [address] [address] Basophil abs 0.0 0.0 - 0.1 K/cumm [facility] (DANIEL) Comment:Testing performed by : [address] [address] Neutrophil pct 58.6 % [facility] (DANIEL) Comment: Interpretive Data Percent cell count reference ranges are not reported, since discordance with absolute values may lead to misinterpretation of CBC data. Current Interpretive Data was last revised on 2018. Testing performed by: [facility], [address] [place] [address]., [address] Imm gran pct 0.3 % [facility] (DANIEL) Comment: Interpretive Data Percent cell count reference ranges are not reported, since discordance with absolute values may lead to misinterpretation of CBC data. Current Interpretive Data was last revised on 2018. Testing performed by: [facility], [address] [place] [address]., [address] Lymphocyte pct 29.1 % [facility] (DANIEL) Comment: Interpretive Data Percent cell count reference ranges are not reported, since discordance with absolute values may lead to misinterpretation of CBC data. Current Interpretive Data was last revised on 2018. Testing performed by: [facility], [address] [place] [address]., [address] Monocyte pct 8.7 % [facility] (DANIEL) Comment: Interpretive Data Percent cell count reference ranges are not reported, since discordance with absolute values may lead to misinterpretation of CBC data. Current Interpretive Data was last revised on 2018. Testing performed by: [facility], [address] [place] [address]., [address] Eosinophil pct 3.0 % [facility] (DANIEL) Comment: Interpretive Data Percent cell count reference ranges are not reported, since discordance with absolute values may lead to misinterpretation of CBC data. Current Interpretive Data was last revised on 2018. Testing performed by: [address] [address] Basophil pct 0.3 % [facility] (DANIEL) Comment: Interpretive Data Percent cell count reference ranges are not reported, since discordance with absolute values may lead to misinterpretation of CBC data. Current Interpretive Data was last revised on 2018. Testing performed by: [address] [address] Blood 01/07/2025 9:47 AM GRANT ADMINISTRATOR 01/07/2025 9:47 AM GRANT ADMINISTRATOR Caio Zaragoza MD LAB BLOOD ORDERABLES Final Re sult OMAR AGUILAR (DANIEL) 1 [facility] Department [place] [address] * Iron profile w/ IBC (01/07/2025 9:47 AM GRANT ADMINISTRATOR) [facility] Iron 63 50 - 150 mcg/dl Comment:Testing performed by : [facility], [address] [place] [address], [address] TIBC 292 250 - 400 mcg/dL [facility] (DANIEL) Comment:Testing performed by : [facility], [address] [place] [address], [address] Transferrin saturation 22 20 - 50 % [facility] (DANIEL) Comment:Testing performed by : [facility], [address] [place] [address], [address] Blood 01/07/2025 9:47 AM GRANT ADMINISTRATOR 01/07/2025 9:48 AM GRANT ADMINISTRATOR Caio Zaragoza MD LAB BLOOD ORDERABLES Final Re sult Performing Organization Address City/[facility] Co de Phone Number OMAR AGUILAR (FREDONIA) 1 [facility] Department [place] [address] * (ABNORMAL) CBC with auto differential (01/07/2025 9:47 AM GRANT ADMINISTRATOR) [facility] WBC 3.0(L) 3.8 - 9.9 K/cumm Comment:Testing performed by : [facility], [address] [place] [address], [address] Hgb 9.8(L) 13.0 - 17.5 g/dL [facility] (DANIEL) Comment:Testing performed by : [address], [address] Hct 31.3(L) 38.9 - 50.3 % [facility] (DANIEL) Comment:Testing performed by : [address], [address] Plt 119(L) 150 - 400 K/cumm [facility] (DANIEL) Comment:Testing performed by : [address], [address] MPV 11.6 9.1 - 12.3 fL [facility] (DANIEL) Comment:Testing performed by : [facility], [address] [place] [address], [address] RBC 3.41(L) 4.30 - 5.80 M/cumm [facility] (DANIEL) Comment:Testing performed by : [facility], [address] [place] [address], [address] MCV 91.8 81.3 - 96.4 fL [facility] (DANIEL) Comment:Testing performed by : [facility], [address] [place] [address], [address] MCH 28.7 27.1 - 33.3 pg [facility] (DANIEL) Comment:Testing performed by : [address], [address] MCHC 31.3(L) 32.3 - 35.7 g/dL [facility] (DANIEL) Comment:Testing performed by : [address], [address] RDW CV 14.0 11.1 - 14.9 % [facility] (DANIEL) Comment:Testing performed by : [address], [address] RDW SD 47.2 35.7 - 48.1 fL [facility] (DANIEL) Comment:Testing performed by : [address], [address] NRBC abs 0.00 0.00 - 0.01 K/cumm [facility] (DANIEL) Comment:Testing performed by : [address], [address] Blood 01/07/2025 9:47 AM GRANT ADMINISTRATOR 01/07/2025 9:47 AM GRANT ADMINISTRATOR us Caio Zaragoza MD LAB BLOOD ORDERABLES Final Re sult [facility] (DANIEL) 1 [facility] Department [place] [address] * (ABNORMAL) PTH (01/07/2025 9:47 AM GRANT ADMINISTRATOR) PTH 69(H) 15 - 65 pg/mL Comment:Testing performed by : [address], [address] Blood 01/07/2025 9:47 AM GRANT ADMINISTRATOR 01/07/2025 9:48 AM GRANT ADMINISTRATOR us Caio Zaragoza MD LAB BLOOD ORDERABLES Final Re sult [facility] (FREDONIA) 1 [facility] [place] [address] * (ABNORMAL) Renal function panel (01/07/2025 9:47 AM GRANT ADMINISTRATOR) Sodium 139 135 - 145 mmol/L Comment:Testing performed by : [address] [address] Potassium, pl 4.0 3.3 - 4.9 mmol/L OMAR AGU[facility] (DANIEL) Comment:Testing performed by : [address], [address] Chloride 100 97 - 110 mmol/L [facility] (DANIEL) Comment:Testing performed by : [address], [address] CO2 26 22 - 32 mmol/L [facility] (DANIEL) Comment:Testing performed by : [address], [address] Anion gap 13 2 - 15 mmol/L [facility] (DANIEL) Comment:Testing performed by : [address], [address] BUN 35(H) 6 - 25 mg/dL [facility] (DANIEL) Comment:Testing performed by : [address], [address] Creatinine 1.52(H) 0.80 - 1.30 mg/dL [facility] (DANIEL) Comment:Testing performed by : [address], [address] Glucose 97 70 - 199 mg/dL [facility] (DANIEL) Comment: Interpretive Data Fasting glucose [...] was last revised 2022. Testing performed by: [facility], [address] [place] [address]., [address] Calcium 10.2 8.5 - 10.3 mg/dL [facility] (DANIEL) Comment:Testing performed by : [facility], [address] [place] [address]., [address] Phosphorus, pl 2.6 2.3 - 4.5 mg/dL [facility] (DANIEL) Comment:Testing performed by : [facility], [address] [place] [address], [address] Albumin 3.8 3.5 - 5.0 g/dL [facility] (DANIEL) Comment:Testing performed by : [facility], [address] [place] [address], [address] Blood 01/07/2025 9:47 AM GRANT ADMINISTRATOR 01/07/2025 9:48 AM GRANT ADMINISTRATOR Caio Zaragoza MD LAB BLOOD ORDERABLES Final Re sult [facility] (FREDONIA) 1 [facility] Department [place] [address] * (ABNORMAL) Urinalysis reflex to microscopic and culture Urine (12/26/2024 4:37 PM GRANT ADMINISTRATOR) Color, ur Yellow Yellow Clarity, ur Turbid(A) [...] tendency for uric acid stone formation. Source: [facility] Current Interpretive Data was last revised on [...] performed. CERNER CH Urine 12/26/2024 4:37 PM GRANT ADMINISTRATOR 12/26/2024 9:06 PM GRANT ADMINISTRATOR Irineo Terrazas MD LAB MICROBIOLOGY - GENERA L ORDERABLES Final Result Performing Organization Address [facility] Co de Phone Number OMAR [place] [address] [address] [employer] [place] [address] * (ABNORMAL) Urinalysis, microscopic only (12/26/2024 4:37 PM GRANT ADMINISTRATOR) WBC, ur 21-50(A) 0 - 5 /HPF RBC, ur 6-10(A) 0 - 2 /HPF CERNER Bacteria, ur Trace(A) CERNER CH Mucous, ur Present(A) CERNER CH Culture Reflex Comment Reflex to urine culture will be performed. CERNER Urine 12/26/2024 4:37 PM GRANT ADMINISTRATOR 12/26/2024 9:06 PM GRANT ADMINISTRATOR Irineo Terrazas MD LAB URINE ORDERABLES Steffany l Result Performing Organization Address [facility] Co de Phone Number [facility]MAR [place] [address] [address] [employer] [place] [address] * (ABNORMAL) Urine culture Urine (12/26/2024 4:37 PM GRANT ADMINISTRATOR) Report Final Report: Greater than or equal to 100,000 colonies/mL of Escherichia coli Greater than or equal to 100,000 colonies/mL of Escherichia coli #2 Greater than or equal to 100,000 colonies/mL of Escherichia coli #3 (.) Comment:Testing performed by : [facility], [address] [place]., [address] Organism ESCHERICHIA COLI OMAR Organism ESCHERICHIA COLI OMAR Organism ESCHERICHIA COLI OMAR Urine 12/26/2024 4:37 PM GRANT ADMINISTRATOR 12/27/2024 12:05 AM GRANT ADMINISTRATOR Narrative OMAR - 12/29/2024 10:44 AM GRANT ADMINISTRATOR Urine culture reflexed based upon urinalysis results. Testing performed by [facility] ([phone]) Organism Antibiotic Method Susceptibility Escherichia coli Ampicillin [...] - GENERA L ORDERABLES Final Result CERNER [address] Department [place] [address] * (ABNORMAL) eGFR (12/19/2024 9:41 AM GRANT ADMINISTRATOR) eGFR 47(L) >=60 mL/min/1. 73 m2 Comment: [...] was last reviewed 2021. Testing performed by: [address] [address] Blood 12/19/2024 9:41 AM GRANT ADMINISTRATOR 12/19/2024 12:55 PM GRANT ADMINISTRATOR Irineo Terrazas MD LAB BLOOD ORDERABLES Steffany l Result [facility] (FREDONIA) 1 [facility] Department [place] [address] * (ABNORMAL) Hemoglobin A1c (12/19/2024 9:41 AM GRANT ADMINISTRATOR) Hgb A1C 6.3(H) 4.0 - 5.6 % Comment:Testing performed by : [address] [address] Estimated Average Glucose 134 mg/dL [facility] (DANIEL) Comment: The ADA recommends reporting an estimated Average Glucose (eAG) with all Hemoglobin A1c results using the equation derived from a study of 507 normal and diabetic adults. Minority populations were underrepresented and children were not included. (Diabetes Care 31:8550-1380, 2008). The eAG is not equivalent to a fasting glucose. Testing performed by: [facility], [address] [place] [address]., [address] Blood 12/19/2024 9:41 AM GRANT ADMINISTRATOR 12/19/2024 12:38 PM GRANT ADMINISTRATOR us Irineo Terrazas MD LAB BLOOD ORDERABLES Steffany swanson Result [facility] (FREDONIA) 1 [facility] Department of Laboratories [place], [place] [id number] * (ABNORMAL) Lipid panel (12/19/2024 9:41 AM GRANT ADMINISTRATOR) Cholesterol 95 30 - 199 mg/dL Comment: [...] last revised on 2018. Testing performed by: [facility], [address] [place] [address], [place]., [address] Triglycerides 110 <=149 mg/dL [facility] (DANIEL) Comment: Interpretive Data [...] last revised on 2018. Testing performed by: [facility], [address] [place] [address]., [address] HDL 30(L) >=40 mg/dL [facility] (DANIEL) Comment: Interpretive Data Ages < or [...] last revised on 2018. Testing performed by: [address] [address] LDL, calculated 44 <=129 mg/dL [facility] (DANIEL) Comment: Interpretive Data Ages < or = 19 years Acceptable: <110 mg/dL Borderline high: 110-129 mg/dL High: >or= 130 mg/dL Ages > or = 20 years Optimal: <100 mg/dL Near optimal: 100-129 mg/dL Borderline high: 130-159 mg/dL High: >160 mg/dL Calculated using the Jose Miguel LDL-C estimating equation. This equation was implemented on 2024. Prior to this date LDL-C was estimated using the Friedewald equation. Literature References: 1. Expert Panel on Integrated Guidelines for Cardiovascular Health and Risk Reduction in Children and Adolescents. Pediatrics 2011;128:S213 2. NCEP Expert Panel. Circulation 2004;110:227 3. Jose Miguel Zheng et al. DAVE Cardiol. 2020 March 26;5(5):540-548. doi: 10.1001/jamacardio.2020.0013 Current Interpretive Data was last revised on 2024. Testing performed by: [address] [address] Non-HDL Cholesterol 65 mg/dL [facility] (DANIEL) [...] last revised on 2018. Testing performed by: [facility], [address] [place] [address]., [address] Chol/HDL ratio 3 [facility] (DANIEL) Comment:Testing performed by : [facility], [address] [place] [address]., [address] Blood 12/19/2024 9:41 AM GRANT ADMINISTRATOR 12/19/2024 12:38 PM GRANT ADMINISTRATOR us Irineo Terrazas MD LAB BLOOD ORDERABLES Steffany swanson Result [facility] (DANIEL) 1 [facility] Department [place] [address] * (ABNORMAL) Comprehensive metabolic panel (12/19/2024 9:41 AM GRANT ADMINISTRATOR) Sodium 136 135 - 145 mmol/L Comment:Testing performed by : [address] [address] Potassium, pl 4.1 3.3 - 4.9 mmol/L [facility] (DANIEL) Comment:Testing performed by : [address] [address] Chloride 102 97 - 110 mmol/L [facility] (DANIEL) Comment:Testing performed by : [address] [address] CO2 25 22 - 32 mmol/L [facility] (DANIEL) Comment:Testing performed by : [address], [address] Anion gap 9 2 - 15 mmol/L [facility] (DANIEL) Comment:Testing performed by : [address], [address] BUN 31(H) 6 - 25 mg/dL [facility] (DANIEL) Comment:Testing performed by : [address], [address] Creatinine 1.50(H) 0.80 - 1.30 mg/dL [facility] (DANIEL) Comment:Testing performed by : [address] [address] Glucose 98 70 - 199 mg/dL CERNER [...] was last revised 2022. Testing performed by: [address], [address] Calcium 10.5(H) 8.5 - 10.3 mg/dL [facility] (DANIEL) Comment:Testing performed by : [address], [address] Bilirubin, total 0.5 0.1 - 1.2 mg/dL [facility] (DANIEL) Comment:Testing performed by : [address], [address] Protein, pl 7.3 6.5 - 8.5 g/dL [facility] (DANIEL) Comment:Testing performed by : [address], [address] Albumin 4.0 3.5 - 5.0 g/dL [facility] (DANIEL) Comment:Testing performed by : [address], [address] Alk phos 40 40 - 130 Units/L [facility] (DANIEL) Comment:Testing performed by : [address], [address] ALT 18 7 - 55 Units/L [facility] (DANIEL) Comment:Testing performed by : [address], [address] AST 29 10 - 50 Units/L [facility] (DANIEL) Comment:Testing performed by : [address], [address] Blood 12/19/2024 9:41 AM GRANT ADMINISTRATOR 12/19/2024 12:38 PM GRANT ADMINISTRATOR Irineo Terrazas MD LAB BLOOD ORDERABLES Steffany l Result Performing Organization Address [facility] Co de Phone Number [facility] (DANIEL) [address] [facility] [place] [address] * PSA screen (10/20/2024 10:12 AM GRANT ADMINISTRATOR) PSA-Total 3.06 <=6.20 ng/mL Comment: Interpretive Data [...] data last revised 22. Testing performed by: [address], [address] Blood 10/20/2024 10:1 2 AM GRANT ADMINISTRATOR 10/20/2024 12:39 PM GRANT ADMINISTRATOR Irineo Terrazas MD LAB BLOOD ORDERABLES Steffany l Result Performing Organization Address [facility] Co de Phone Number [facility] (DANIEL) 1 [facility] [place] [address] * (ABNORMAL) Albumin Creatinine Ratio, Urine (10/20/2024 10:12 AM GRANT ADMINISTRATOR) Albumin Ur 96.2 mg/L Comment: Interpretive Data No reference range established. Current interpretive data was last revised 2019. Testing performed by: [address], [address] Creatinine Ur 92.3 mg/dL [facility] (DANIEL) Comment: Interpretive Data No reference range established. Current interpretive data was last revised 2019. Testing performed by: [facility], [address] [place] [address]., [address] Albumin Creatinine Ratio, Ur 104(H) 1 - 29 mg/g [facility] (DANIEL) Comment:Testing performed by : [facility], [address] [place] [address], [address] Urine 10/20/2024 10:1 2 AM GRANT ADMINISTRATOR 10/20/2024 12:39 PM GRANT ADMINISTRATOR Irineo Terrazas MD LAB URINE ORDERABLES Steffany l Result [facility] (DANIEL) 1 [facility] Department [place] [address] * (ABNORMAL) Diabetic Eye Exam (04/22/2024) Historical Provider HEALTH MAINTENANCE Final Result * COLONOSCOPY (06/23/2021 9:01 AM CDT) Anatomical Region Laterality Modality Other Narrative Procedure Note Abdirahman Negrete MD - 06/23/2021 9:01 AM CDT [facility] Patient Name: Andrea Aldana Procedure Date: 06/23/2021 9:01 AM Date of : 1945 Admit Type: Outpatient Age: 76 Gender: Male Attending MD: Abdirahman Negrete M.D. Room: [facility] ENDOSCOPY ROOM 2 Note Status: Finalized [...] scope was passed under direct vision. TheColonoscope [id number] was introduced through the anus and advanced [...] history of colonic polyps CPT copyright 2019 [employer]. All rights reserved. The codes documented in this report are preliminary and upon grit blaster reviewmay be revised to meet current compliance requirements. Recognized by the [employer] for promoting quality in endoscopy Abdirahman Negrete MD ENDOSCOPY PROCEDURES Final Re sult * DIABETES FOOT EXAM (02/15/2017) Diabetic Foot Exam Unknown Historical Provider HEALTH MAINTENANCE Final Result from Last 3 Months or Most Recently Relevant to Health Maintenance Insurance MEDICARE SOLUT[employer] [facility] Address: [facility] [address] [place] [address] MEDICARE SOLUTIONS MEDICARE SOLUTIONS Advance Directives For more information, please contact: [phone] * Full Code (Latest Code Status on File) Date Activated Date Inactivated Comments 04/18/2024 7:33 PM 04/20/2024 3:22 PM * Full Code Date Activated Date Inactivated Comments 06/23/2021 8:57 AM 06/23/2021 3:09 PM * Full Code Date Activated Date Inactivated Comments 06/23/2021 8:57 AM 06/23/2021 8:57 AM * Full Code Date Activated Date Inactivated Comments 06/25/2018 10:53 AM 06/25/2018 2:46 PM Care Teams Head Tennis Coach Relationship Specialty Start Date End Date [place] [address] PCP - General Family Medicine 10/06/22 Javier Manuel MD Consulting Physician Cardiovascular Disease 06/25/18 Andrea Candelario, DPM [address] [place] [address] Consulting Physician Orthopedic Surgery 12/22/22 Caio Zaragoza MD [address] [place] [address] [address] [place] [address] Consulting Physician Nephrology 05/13/24 Cinthia Rocha, RN [address] [place] [address] [address] [place] [address] Senior Operator 05/19/24
--- OUTSIDE RECORDS SUMMARY | 2025-02-05 13:46 | XMS_ITS | Encounter Summary ---
Author Organization [facility] Address [address] [place] [address] Phone Care Team Providers Care Rayon Coner Name Role Phone Miguel Clark MD Primary Care Provi severo Javier Manuel MD Unavailable [phone] [place] Primary Care Provider Irineo Terrazas MD Primary Care Provider [phone] Jeff Candelario DPM Unavailable [phone] Caio Zaragoza MD Unavailable [phone] Cinthia Rocha RN Unavailable [phone] Christina Tubbs CDE Unavailable [phone] Encounter Details Date Type Department Care Team (Late st Contact Info) Description 03/19/2018 Orders Only [facility] ProviderYoli MD [address] [place] [address] Social History Tobacco Use Types Packs/Day Years Used Date Smoking Tobacco: Never Smokeless Tobacco: Never Alcohol Use Standard Drinks/Week Comments No 0 (1 standard drink = 0.6 oz pur e alcohol) Sex and Gender Information Value Date Recorded Sex Assigned at Not on file Legal Sex Male 11:52 PM 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 us Historical Provider LAB BLOOD ORDERABLES Steffany l Result documented in this encounter Visit Diagnoses Not on filedocumented in this encounter Additional Health Concerns Infection Onset Date Last Indicated Resolved Time C. difficile suspected 04/18/2024 04/18/202404/20 1:50 PM CDT documented as of this encounter Care Teams Rayon Coner Relationship Specialty Start Date End Date Miguel Clark MD PCP - General 02/23/17 07/26/22 Chino [place] PA [address] [place] [address] [place] [address] PCP - General Internal Medicine 07/27/22 10/05/22 Irineo Terrazas MD [address] [place] [address] PCP - General Family Medicine 10/06/22 Javier Manuel MD Consulting Physician Cardiovascular Disease 06/25/18 Jeff Candelario, DPM [address] [place] [address] Consulting Physician Orthopedic Surgery 12/22/22 Caio Zaragoza MD [address] [place] [address] [address] [place] [address] Consulting Physician Nephrology 05/13/24 Cinthia Rocha, RN [address] [place] [address] [address] [place] [address] Fish Farm Laborer 05/19/24 Christina Tubbs CDE [address] [facility] [address] [place] [address] Medical Services Assistant 05/19/24 05/25/24 documented as of this encounter
--- OUTSIDE RECORDS SUMMARY | 2025-02-05 13:46 | XMS_ITS | Encounter Summary ---
Author Organization [facility] Address [address] [facility] Attn: Epic Prelude ADT [place] [address] Care Team Providers Care Product Safety Test Engineer Name Role Phone Miguel Clark MD Primary Care Provider Kait medina Encounter Details Date Type Department Care Team (Late st Contact Info) Description 12/22/2010 Ave Mehta S, RT CAD (coronary artery disease) (Primary Dx) Social History Tobacco Use Types Packs/Day Years Used Date Smoking Tobacco: Never Assessed Sex and Gender Information Value Date Recorded Sex Assigned at Not on file Legal Sex Male 5:57 AM ORTHOPEDIC PODIATRIST Gender Identity Not on file Sexual Orientation Not on file documented as of this encounter Plan of Treatment Not on file documented as of this encounter Results * NM MYOCARD PERF IMAG SPECT MULT (12/22/2010 11:27 AM ORTHOPEDIC PODIATRIST) Narrative [facility] - 05/28/2013 9:04 AM CDT Final status, expect no report. Procedure Note [facility] Rad, Radiologist - 05/28/2013 Final status, expect no report. us Nicolás Knutson MD NM ORDERABLES Final Result [facility] * STRESS TEST EXERCISE NUCLEAR MED (12/22/2010 11:07 AM ORTHOPEDIC PODIATRIST) Narrative [facility] - 12/22/2010 11:07 AM ORTHOPEDIC PODIATRIST Please see associated imaging report from the same date. Procedure Note Su Lundberg - 12/22/2010 Please see associated imaging report from the same date. us Nicolás Knutson MD NM ORDERABLES Final Result [facility] documented in this encounter Visit Diagnoses Diagnosis CAD (coronary artery disease)- Primary Coronary atherosclerosis of unspecified type of vessel, caddo or graft CAD (coronary artery disease) Coronary atherosclerosis of unspecified type of vessel, caddo or graft CAD (coronary artery disease) Coronary atherosclerosis of unspecified type of vessel, caddo or graft CAD (coronary artery disease) Coronary atherosclerosis of unspecified type of vessel, caddo or graft Coronary atherosclerosis of unspecified type of vessel, caddo or graft documented in this encounter Care Teams Product Safety Test Engineer Relationship Specialty Start Date End Date Miguel Clark MD PCP - General 11/12/15 documented as of this encounter
--- OUTSIDE RECORDS SUMMARY | 2025-02-05 13:46 | XMS_ITS | Clinical Summary ---
Author Organization [facility] Address [address] [place] [address] Phone Care Team Providers Care Screw Machine Operator Name Role Phone Miguel Clark MD Primary Care Provider Unavai lable Allergies No known active allergies Medications rosuvastatin (CRESTOR) 5 mg Oral tablet Take 15 mg by mouth daily. Active metFORMIN (GLUCOPHAGE) 500 mg Oral tablet Take 500 mg by mouth 2 times daily with meals. Active glipiZIDE (GLUCOTROL) 5 mg Oral tablet Take 5 mg by mouth every 12 hours. Active terazosin (HYTRIN) 10 mg Oral capsule Take 10 mg by mouth daily. Active aspirin (SUSAN) 81 mg Oral Tab Take 81 mg by mouth daily. Active clopidogrel (PLAVIX) 75 mg Oral Tab Take 75 mg by mouth daily. Active lansoprazole (PREVACID) 30 mg Oral CpDR Take 30 mg by mouth daily. Active metoprolol tartrate (LOPRESSOR) 25 mg Oral tablet Take 1 Tab by mouth 2 times daily. 180 Tab 3 05/28/2012 Active quinapril (ACCUPRIL) 20 mg tablet 05/24/2014 Active Active Problems Patient Care Coordination No te Formatting of this note migh t be different from the original. Forester Aide Dr. Nicolás Knutson Problem Noted Date Diagnosed Date Coronary atherosclerosis of lime coronary aguilar ry Overview (12/09/2013): 1999 Cath/CAD - Status post previous LAD stent placement 2004 Cath/CAD - demonstrated a widely patent stent. 2006 Cath/CAD - done for mildly abnormal stress test demonstrating posterolateral ischemia demonstrated a patent LAD stent with plaquing in the circumflex and right coronary artery. He had normal LV function. 10/2008 Stress Thal - negative for ischemia. 12/06 Stress Thal - Normal study without ischemia; EF - 70% 07/08 Stress Thal (Ronnie) - Normal study without ischemia - EF- 51% Type II or unspecified type diabetes mellitus without mention of complication, not stated as uncontrolled HTN (hypertension) Hyperlipidemia Overview (06/03/2013): 01/07 Lipids [phone] 09/06 Lipids [phone] 05/08 Lipids [id number] Gastroesophageal reflux disease Social History Tobacco Use Types Packs/Day Years Used Date Smoking Tobacco: Never Smokeless Tobacco: Never Alcohol Use Standard Drinks/Week Comments No 0 (1 standard drink = 0.6 oz pur e alcohol) Sex and Gender Information Value Date Recorded Sex Assigned at Not on file Legal 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 Gender Identity Not on file Sexual Orientation Not on file Last Filed Vital Signs Vital Sign Reading Time Taken Comments Blood Pressure 136/75 06/09/2014 9:43 AM CDT Pulse 67 06/09/2014 9:43 AM CDT Temperature - - Respiratory Rate 15 06/09/2014 9:43 AM CDT Oxygen Saturation - - Inhaled Oxygen Concentration - - Weight 98.9 kg (218 lb) 06/09/2014 9:43 AM CDT Height 172.1 cm (5' 7.75 ) 06/09/2014 9:43 AM CD T Body Mass Index 33.39 06/09/2014 9:43 AM CDT Plan of Treatment Health Maintenance Due Date Last Done Comments DIABETES ANNUAL FOOT EXAM 1962 DIABETES ANNUAL RETINAL EXAM 1962 DIABETES HBA1C Q 6 MONTHS 1962 DIABETES MICROALBUMIN ANNUAL SCREEN 1962 LDL CHOLESTEROL ANNUAL 1962 DTAP/TDAP/TD VACCINES (1 - Tdap) 1963 PNEUMOCOCCAL VACCINE 50+ YEARS (1 of 2 - PCV) 06/13/19 63 ZOSTER VACCINE (1 of 2) 1994 RSV VACCINE (60+ or ) (1 - 1-dose 75+ series) 2019 INFLUENZA VACCINE (#1) 2024 Insurance [facility] [id number] Care Teams Screw Machine Operator Relationship Specialty Start Date End Date Miguel Clark MD PCP - General 11/12/15
== END 2025-02-05 12:06 | disposition home or self-care (01) ==
LOC: CHSLAB 12:10
PROVIDERS: PCP Specialist; Visit Provider Specialist
DX: C44.329 Squamous cell carcinoma of skin of other parts of face (principal)
CPT/HCPCS: 88305